=== PATIENT | male | born 1940 | race Caucasian/White ===

== ENCOUNTER → 2016-09-15 | Outpatient (CLI) | payer MEDICARE ==
--- NOTE | 2016-09-17 07:47 | MR ---
EXAMINATION TYPE: MR angio head wo con DATE OF EXAM: 09/15/2016 3:30 PM COMPARISON: NONE HISTORY: Headache Three-dimensional [id number] intracranial MRA was performed with multiple intensity projection im ages submitted and source data reviewed at the workstation. The vertebrobasilar system as well as intracranial portions of the internal carotid arteries and thei r major tributaries are patent. I do not see evidence for sizable aneurysm or vascular malformation. IMPRESSION: Normal study.
--- NOTE | 2016-09-17 07:51 | MR ---
EXAMINATION TYPE: MR brain wo/w con DATE OF EXAM: 09/15/2016 3:40 PM COMPARISON: NONE HISTORY: R93.0; MULTIPLE STROKES CONTRAST: 13ml multihance Multiplanar and multispin-echo imaging of the brain was performed . Pre and post contrast enhanced i mages are obtained. The ventricles, basal cisterns and sulci overlying the cerebral convexities are moderately enlarged. Remote insults noted within the left parietal occipital region as well as the left frontal region an d high right frontal region. There is evidence of moderate periventricular white matter ischemic demyelination. Remote deep white matter insults are also noted. No acute edema is seen on diffusion weighted imaging. There is no evidence for midline shift or mass effect. Acute intracranial hemorrhage or extra-axial collection is not evident. No enhancing lesions are seen. The paranasal sinuses and mastoid air cells are well-aerated. IMPRESSION: Age-related atrophic and chronic small vessel ischemic change. No acute intracranial process at this time. Remote insults as noted. No enhancing lesions are seen.
== END | disposition home or self-care (01) ==
LOC: RADMRIMAIN 13:26
PROVIDERS: ATTEND Psychiatry & Neurology Neurology
DX: I67.82 Cerebral ischemia (principal); G31.9 Degenerative disease of nervous system, unspecified
CPT/HCPCS: 70544; 70553; A9577

== ENCOUNTER → 2020-03-08 | Outpatient (CLI) | payer MEDICARE ==
[2020-03-08 21:13] LABS: Albumin 3.5 g/dL (3.80-4.90); Albumin/Globulin Ratio 1.46 (1.60-3.17); Anion Gap 5.4 mmol/L (4.00-12.00); Calcium 8.8 mg/dL (8.7-10.3); Carbon Dioxide 21.6 mmol/L (21.6-31.8); Chol/HDL Ratio 3.6; Globulin 2.4 g/dL (1.6-3.3); LDL Cholesterol,Calculated 61.4 mg/dL (0.0-131.0); Non-African American GFR(CKD) 70.8 (60.0-200.0); Potassium 4.4 mmol/L (3.5-5.5); Total Bilirubin 0.5 mg/dL (0.2-1.2); Total Protein 5.9 g/dL (6.2-8.2); VLDL Calculation 16.6 mg/dL (5.00-40.00)
== END | disposition home or self-care (01) ==
LOC: LABWHC1 10:52
PROVIDERS: ATTEND Internal Medicine Clinical Cardiac Electrophysiology
DX: I25.10 Atherosclerotic heart disease of native coronary artery without angina pectoris (principal); I49.5 Sick sinus syndrome; E78.5 Hyperlipidemia, unspecified; Z79.01 Long term (current) use of anticoagulants
CPT/HCPCS: 36415; 80053; 80061; 84443

== ENCOUNTER → 2020-04-13 | Outpatient (CLI) | payer MEDICARE ==
[2020-04-13 16:44] LABS: African American GFR (CKD) >90 (>60 ml/min/1.73 sqM); Blood Urea Nitrogen 18 mg/dL (9-20); Non-African American GFR(CKD) 80 (>60 ml/min/1.73 sqM)
--- NOTE | 2020-04-13 17:32 | CT ---
EXAMINATION TYPE: CT angio neck DATE OF EXAM: 04/13/2020 COMPARISON: HISTORY: Cerebral atherosclerosis CT DLP: 235.30 mGycm Automated exposure control for dose reduction was used. CONTRAST: Performed with IV Contrast, patient injected with 65 mL of Isovue 370. There are 3-D post processed images. Thoracic aorta is intact. There is mild atheromatous change in the aortic arch. There is no aneurysm. The ascending aorta measures 3.4 cm. There is normal branching pattern of the great vessels on the a ortic arch. There is bilateral arterial flow in the subclavian arteries. There is arterial flow in th e common internal and external carotid arteries bilaterally. 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 There is 75% stenosis at t he origin of the right external carotid artery. There is minimal plaque at the left carotid artery bi furcation with lumen narrowing less than 25%. There is arterial flow in the vertebrobasilar artery sy stem. The basilar artery fills mostly from the right side. There is no evidence of carotid or vertebr al artery aneurysm or dissection. 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 There is 75% stenosis origin of the right external carotid artery. No evidence of any significant stenosis in the left carotid artery. Vertebral arteries within normal limits.
== END | disposition home or self-care (01) ==
LOC: RADCTMAIN 15:08
PROVIDERS: ATTEND Physician Assistant
DX: I65.21 Occlusion and stenosis of right carotid artery (principal); I65.23 Occlusion and stenosis of bilateral carotid arteries
CPT/HCPCS: 82565; 84520; 70498; 36415; Q9967

== ENCOUNTER → 2020-08-25 | Outpatient (CLI) | payer MEDICARE ==
--- NOTE | 2020-08-25 22:25 | US ---
EXAMINATION TYPE: US kidneys/renal and bladder DATE OF EXAM: 08/25/2020 COMPARISON: CT June 26, 2016 CLINICAL HISTORY: R31.29 Microscopic hematuria. microscopic hematuria with some gross hematuria EXAM MEASUREMENTS: Right Kidney: 9.3 x 4.2 x 5.1 cm Left Kidney: 9.3 x 3.6 x 3.9 cm Right Kidney: No hydronephrosis or masses seen Left Kidney: No hydronephrosis or masses seen Bladder: patient was not told to prep There is no evidence for hydronephrosis at this point in time. No nephrolithiasis is seen. No verna s are identified on images saved. The urinary bladder is collapsed and thus cannot be evaluated. IMPRESSION: Suboptimal evaluation of the bladder. Source of hematuria not identified. Further investi gation with CT urogram is likely warranted.
== END | disposition home or self-care (01) ==
LOC: RADUSWWP 14:40
PROVIDERS: ATTEND Family Medicine
DX: R31.29 Other microscopic hematuria (principal)
CPT/HCPCS: 76770

== ENCOUNTER → 2021-01-10 | Outpatient (CLI) | payer MEDICARE ==
--- NOTE | 2021-01-10 11:15 | CT ---
EXAMINATION TYPE: CT ChestAbdPelvis wo con DATE OF EXAM: 01/10/2021 COMPARISON: 06/26/2016 HISTORY: Weight loss and shortness of breath CT DLP: 492.7 mGycm. Automated Exposure Control for Dose Reduction was Utilized. TECHNIQUE: CT scan of the thorax, abdomen and pelvis is performed without IV contrast. FINDINGS: LUNGS: Linear right apical density extending the pleural silhouette appears to 2016 and therefore lik nely postinflammatory. There is a 4 mm subpleural new pulmonary nodule. Underlying COPD suspected. Add itional subcentimeter subpleural nodularity noted. There are 2 3 mm nodules in the left upper lobe on axial image 23. No consolidative pneumonia. Pleural effusion. There is a 3 mm nodule in the right mi ddle lobe on axial image 36 and a larger 7 mm nodule on axial image 37. MEDIASTINUM: There are no greater than 1 cm hilar or mediastinal lymph nodes. Heart is enlarged. Asse ssment for adenopathy limited by the lack of contrast. There is atherosclerotic change of the aorta a nd the coronary arteries. Correlate clinically. OTHER: No additional significant abnormality is seen. LIVER/GB: Significant artifact from numerous surgical clips likely within the gallbladder fossa repre senting postcholecystectomy changes. Biliary ductal dilation likely post cholecystectomy.. PANCREAS: No significant abnormality is seen. SPLEEN: No significant abnormality is seen. ADRENALS: No significant abnormality is seen. KIDNEYS: No significant abnormality is seen. BOWEL: Bowel gas pattern nonspecific with a nonobstructing right inguinal hernia. Retained fecal debr is throughout the colon correlate for constipation.. LYMPH NODES: No greater than 1cm abdominal or pelvic lymph nodes are appreciated. OSSEOUS STRUCTURES: Degenerative change the spine most noted at L5-S1 with bilateral spondylolysis an d grade 1 anterolisthesis. Arthropathy of the hips. Stable lucent lesion involving the right acetabul ar roof laterally. OTHER: Atherosclerotic changes aorta with infrarenal abdominal aortic aneurysm measuring approximatel y 3.1 cm extending to the bifurcation. Mild ectasia of the proximal iliac vasculature greater on the right. There is increased density within the bladder which is limited due to lack of contrast. Recomm end ultrasound bladder. No free fluid or free air. Prostate calcifications are noted. Postsurgical ch susanna involving the anterior abdominal wall. IMPRESSION: 1. Numerous subcentimeter pulmonary nodules too small to characterize. Some appears stable from prior exam of 2015 and therefore benign. However, there is are additional new nodules most noted in the ri ght middle lobe measuring 7 mm and are therefore indeterminate. Correlate clinically. 2. Mild induration of the fat within the lateral right abdomen may be related to motion rather than m ild enteritis or colitis correlate clinically. 3. Areas of increased density are seen within the bladder recommend follow-up bladder ultrasound as w ell as urinalysis to assess for possible calcification or mass. 4. COPD 5. infrarenal abdominal aortic aneurysm measuring approximately 3.1 cm. 6. Coronary artery calcification. 7. Nonobstructing left inguinal hernia
== END | disposition home or self-care (01) ==
LOC: RADCTMAIN 09:55
PROVIDERS: ATTEND Family Medicine
DX: R91.8 Other nonspecific abnormal finding of lung field (principal); J44.9 Chronic obstructive pulmonary disease, unspecified; I25.10 Atherosclerotic heart disease of native coronary artery without angina pectoris; I71.4 Abdominal aortic aneurysm, without rupture; K40.90 Unilateral inguinal hernia, without obstruction or gangrene, not specified as recurrent
CPT/HCPCS: 71250; 74176

== ENCOUNTER → 2021-05-10 | Outpatient (CLI) | payer MEDICARE ==
--- NOTE | 2021-05-10 15:20 | US ---
EXAMINATION TYPE: US kidneys/renal and bladder DATE OF EXAM: 05/10/2021 COMPARISON: US, CT CLINICAL HISTORY: R31.0 GROSS HEMATURIA. Gross hematuria. EXAM MEASUREMENTS: Right Kidney: 9.6 x 5.4 x 4.8 cm Left Kidney: 9.8 x 5.0 x 4.0 cm Right Kidney: No hydronephrosis or masses seen Left Kidney: Renal pelvis appears dilated. Bladder: Limited, patient did not prep. Bladder not distended. There do appear to be internal echoes within the bladder: 0.7 x 2.4 x 1.7 cm. Bilateral Jets seen: No IMPRESSION: Mild hydronephrosis left kidney is difficult to exclude.
== END | disposition home or self-care (01) ==
LOC: RADUSWWP 14:18
PROVIDERS: ATTEND Family Medicine
DX: N13.30 Unspecified hydronephrosis (principal)
CPT/HCPCS: 76770

== ENCOUNTER 2021-07-08 07:44 | Emergency (ER) | payer MEDICARE ==
[2021-07-08 07:59] VITALS: RESP 18
[2021-07-08] MEDS ORDERED: SODIUM CHLORIDE 0.9% 1,000 ML IV STA (08:11)
[2021-07-08] MEDS ORDERED: PANTOPRAZOLE 40 MG/10 ML VIAL IVP STA (08:11)
--- NOTE | 2021-07-08 08:18 | ED ---
General Adult HPI - General Chief complaint: ENT Stated complaint: not eating/not able to swallow Time Seen by Provider: 07/08/21 07:51 Source: patient, RN notes reviewed Mode of arrival: ambulatory Limitations: no limitations - History of Present Illness Initial comments: Patient is a pleasant 81-year-old male presenting to the emergency Department with not tolerating oral intake. Onset of symptoms seemed fairly sudden around 3 days ago. Patient did not have any episode of concern for food bolus stuck. Patient states no history of similar symptoms previously. Patient states he was tolerating full liquids then only water and now even has difficulty with that. Patient states when he tries to swallow he spits it back up. No confusion or weakness. No speech problems. - Related Data Home Medications Medication Instructions Recorded Confirmed acetaZOLAMIDE [Diamox Sequels] 500 mg PO BID 09/24/14 07/08/21 Hydroxyurea [Hydrea] 500 mg PO BID 01/12/16 07/08/21 Vitamin E (Dl,Tocopheryl Acet) 400 unit PO DAILY 01/12/16 07/08/21 [Vitamin E (400 Iu = 180 mg)] Brimonidine Tartrate/Timolol 1 drop BOTH EYES BID 06/25/16 07/08/21 [Combigan 0.2%-0.5% Eye Drops] Latanoprost [Xalatan 0.005%] 1 drop BOTH EYES HS 06/25/16 07/08/21 Artificial Tears-Hypromellose 1 drop BOTH EYES TID PRN 07/08/21 07/08/21 [Artificial Tear Drops] Ascorbic Acid [Vitamin C chew] 500 mg PO DAILY 07/08/21 07/08/21 Aspirin EC [Ecotrin Low Dose] 81 mg PO DAILY 07/08/21 07/08/21 Calcium Carbonate [Calcium] 600 mg PO DAILY 07/08/21 07/08/21 Donepezil [Aricept] 10 mg PO HS 07/08/21 07/08/21 Multivitamins, Thera [Multivitamin 1 tab PO DAILY 07/08/21 07/08/21 (formulary)] Rivaroxaban [Xarelto] 2.5 mg PO BID 07/08/21 07/08/21 Rosuvastatin [Crestor] 20 mg PO DAILY 07/08/21 07/08/21 atenoloL [Tenormin] 25 mg PO DAILY 07/08/21 07/08/21 Allergies Allergy/AdvReac Type Severity Reaction Status Date / Time codeine AdvReac Nausea & Verified 07/08/21 10:07 Vomiting Review of Systems ROS Statement: Those systems with pertinent positive or pertinent negative responses have been documented in the HPI. ROS Other: All systems not noted in ROS Statement are negative. Constitutional: Denies: fever Eyes: Denies: eye pain ENT: Reports: as per HPI Respiratory: Denies: cough, dyspnea Cardiovascular: Denies: chest pain Endocrine: Denies: fatigue Gastrointestinal: Denies: abdominal pain Genitourinary: Denies: dysuria Musculoskeletal: Denies: back pain Skin: Denies: rash Neurological: Denies: weakness Past Medical History Past Medical History: Asthma, CVA/TIA, Hyperlipidemia, Hypertension, Myocardial Infarction ([place]) Additional Past Medical History / Comment(s): TIA-2012 R hand residual weakness Last Myocardial Infarction Date:: 2013 History of Any Multi-Drug Resistant Organisms: None Reported Past Surgical History: Cholecystectomy, Hernia Repair, Tonsillectomy Additional Past Surgical History / Comment(s): SUMANTH CATARACTS Past Anesthesia/Blood Transfusion Reactions: No Reported Reaction Past Psychological History: No Psychological Hx Reported Past Alcohol Use History: Rare Past Drug Use History: None Reported - Past Family History Mother Family Medical History: Cancer Father Family Medical History: Cancer General Exam Limitations: no limitations General appearance: alert, in no apparent distress Head exam: Present: normocephalic Eye exam: Present: normal appearance, PERRL, EOMI ENT exam: Present: normal oropharynx Neck exam: Present: normal inspection. Absent: tenderness, meningismus, lymphadenopathy, thyromegaly Respiratory exam: Present: normal lung sounds bilaterally Cardiovascular Exam: Present: regular rate, normal rhythm GI/Abdominal exam: Present: soft. Absent: tenderness Extremities exam: Present: normal inspection Neurological exam: Present: alert, oriented X3, CN II-XII intact. Absent: motor sensory deficit Expanded Neurological exam: Present: protecting the airway Patient oriented to: Present: person, place, time Speech: Present: fluid speech Cranial nerves: EOM's Intact: Normal Motor strength exam: RUE: 5, LUE: 5, RLE: 5, LLE: 5 Eye Response: (4) open spontaneously Motor Response: (6) obeys commands Verbal Response: (5) oriented Psychiatric exam: Present: normal affect, normal mood Skin exam: Present: normal color Course Vital Signs 07/08/21 07/08/21 07:54 09:53 Temperature 98.0 F Pulse Rate 66 54 L Respiratory 18 18 Rate Blood Pressure 125/59 123/54 O2 Sat by Pulse 98 98 Oximetry Medical Decision Making - Medical Decision Making Patient reevaluated and resting comfortably in bed. Patient was able to tolerate 8 ounces of fluids without any difficulty. Patient is in agreement with this and is comfortable with discharge home. Patient is made aware that he will need further evaluation including swallow evaluation such as barium swallow and further evaluation of his hematuria. Patient does demonstrate understanding and is in agreement with follow-up for this. Patient is advised to return if he is having worsening symptoms or not tolerating oral intake. Call was received from family by nursing staff stating patient has had these symptoms for several months now. - Lab Data Result diagrams: 07/08/21 08:25 07/08/21 08:25 Lab Results 07/08/21 07/08/21 07/08/21 Range/Units 08:25 08:25 08:25 WBC 7.8 (3.8-10.6) k/uL RBC 3.01 L (4.30-5.90) m/uL Hgb 13.4 (13.0-17.5) gm/dL Hct 41.2 (39.0-53.0) % MCV 136.7 H (80.0-100.0) fL MCH 44.4 H (25.0-35.0) pg MCHC 32.5 (31.0-37.0) g/dL RDW 16.0 H (11.5-15.5) % Plt Count 206 (150-450) k/uL MPV 10.7 Neutrophils % 76 % Lymphocytes % 14 % Monocytes % 5 % Eosinophils % 2 % Basophils % 1 % Neutrophils # 5.9 (1.3-7.7) k/uL Lymphocytes # 1.1 (1.0-4.8) k/uL Monocytes # 0.4 (0-1.0) k/uL Eosinophils # 0.1 (0-0.7) k/uL Basophils # 0.1 (0-0.2) k/uL Manual Slide Review Performed Hypersegmented Neuts Present Hypochromasia Slight Poikilocytosis Slight Anisocytosis Slight Macrocytosis Marked A PT 12.1 H (9.0-12.0) sec INR 1.2 H (<1.2) APTT 27.0 (22.0-30.0) sec Sodium (137-145) mmol/L Potassium (3.5-5.1) mmol/L Chloride (98-107) mmol/L Carbon Dioxide (22-30) mmol/L Anion Gap mmol/L BUN (9-20) mg/dL Creatinine (0.66-1.25) mg/dL Est GFR (CKD-EPI)AfAm (>60 ml/min/1.73 sqM) Est GFR (CKD-EPI)NonAf (>60 ml/min/1.73 sqM) Glucose (74-99) mg/dL Calcium (8.4-10.2) mg/dL Total Bilirubin (0.2-1.3) mg/dL AST (17-59) U/L ALT (4-49) U/L Alkaline Phosphatase (38-126) U/L Total Protein (6.3-8.2) g/dL Albumin (3.5-5.0) g/dL Amylase (30-110) U/L Lipase (23-300) U/L Urine Color Yellow Urine Appearance Clear (Clear) Urine pH 5.5 (5.0-8.0) Ur Specific [place] 1.022 (1.001-1.035) Urine Protein 1+ H (Negative) Urine Glucose (UA) Negative (Negative) Urine Ketones 2+ H (Negative) Urine Blood Large H (Negative) Urine Nitrite Negative (Negative) Urine Bilirubin Negative (Negative) Urine Urobilinogen <2.0 (<2.0) mg/dL Ur Leukocyte Esterase Negative (Negative) Urine RBC 146 H (0-5) /hpf Urine WBC 17 H (0-5) /hpf Ur Squamous Epith Cells <1 (0-4) /hpf Urine Mucus Few H (None) /hpf 07/08/21 Range/Units 08:25 WBC (3.8-10.6) k/uL RBC (4.30-5.90) m/uL Hgb (13.0-17.5) gm/dL Hct (39.0-53.0) % MCV (80.0-100.0) fL MCH (25.0-35.0) pg MCHC (31.0-37.0) g/dL RDW (11.5-15.5) % Plt Count (150-450) k/uL MPV Neutrophils % % Lymphocytes % % Monocytes % % Eosinophils % % Basophils % % Neutrophils # (1.3-7.7) k/uL Lymphocytes # (1.0-4.8) k/uL Monocytes # (0-1.0) k/uL Eosinophils # (0-0.7) k/uL Basophils # (0-0.2) k/uL Manual Slide Review Hypersegmented Neuts Hypochromasia Poikilocytosis Anisocytosis Macrocytosis PT (9.0-12.0) sec INR (<1.2) APTT (22.0-30.0) sec Sodium 141 (137-145) mmol/L Potassium 3.7 (3.5-5.1) mmol/L Chloride 115 H (98-107) mmol/L Carbon Dioxide 18 L (22-30) mmol/L Anion Gap 8 mmol/L BUN 17 (9-20) mg/dL Creatinine 0.91 (0.66-1.25) mg/dL Est GFR (CKD-EPI)AfAm >90 (>60 ml/min/1.73 sqM) Est GFR (CKD-EPI)NonAf 78 (>60 ml/min/1.73 sqM) Glucose 113 H (74-99) mg/dL Calcium 8.7 (8.4-10.2) mg/dL Total Bilirubin 0.7 (0.2-1.3) mg/dL AST 27 (17-59) U/L ALT 20 (4-49) U/L Alkaline Phosphatase 53 (38-126) U/L Total Protein 6.5 (6.3-8.2) g/dL Albumin 3.5 (3.5-5.0) g/dL Amylase 49 (30-110) U/L Lipase 76 (23-300) U/L Urine Color Urine Appearance (Clear) Urine pH (5.0-8.0) Ur Specific [place] (1.001-1.035) Urine Protein (Negative) Urine Glucose (UA) (Negative) Urine Ketones (Negative) Urine Blood (Negative) Urine Nitrite (Negative) Urine Bilirubin (Negative) Urine Urobilinogen (<2.0) mg/dL Ur Leukocyte Esterase (Negative) Urine RBC (0-5) /hpf Urine WBC (0-5) /hpf Ur Squamous Epith Cells (0-4) /hpf Urine Mucus (None) /hpf - Radiology Data Radiology results: report reviewed (CT brain reveals no acute process), image reviewed (Chest x-ray and KUB shows no process. Soft tissue neck shows some narrowing or stapling subglottic airway.) Disposition Clinical Impression: Dysphagia, Hematuria Disposition: HOME SELF-CARE Condition: Stable Instructions (If sedation given, give patient instructions): Chronic Dysphagia (DC), Dysphagia (ED), Hematuria (ED) Additional Instructions: Please do follow-up primary care physician in the next couple days for recheck. Return for not tolerating oral intake, not tolerating fluids or water, worsening or changing symptoms or any other concern. You will need further evaluation for both blood in the urine as well as swallowing problems. Is patient prescribed a controlled substance at d/c from ED?: No Referrals: Marvin Rivera MD [Primary Care Provider] - 1-2 days Time of Disposition: 12:32
[2021-07-08 08:35] LABS: Anisocytosis Slight; Basophils # (A) 0.1 k/uL (0-0.2); Basophils % (A) 1 %; Eosinophils # (A) 0.1 k/uL (0-0.7); Eosinophils % (A) 2 %; HCT 41.2 % (39.0-53.0); HGB 13.4 gm/dL (13.0-17.5); Hypochromasia Slight; Lymphocytes # (A) 1.1 k/uL (1.0-4.8); Lymphocytes % (A) 14 %; MCHC 32.5 g/dL (31.0-37.0); Macrocytosis Marked; Mean Platelet Volume 10.7; Monocytes # (A) 0.4 k/uL (0-1.0); Monocytes % (A) 5 %; Neutrophils # (A) 5.9 k/uL (1.3-7.7); Neutrophils % (A) 76 %; Platelet Count 206 k/uL (150-450); Poikilocytosis Slight; RBC 3.01 m/uL (4.30-5.90); WBC 7.8 k/uL (3.8-10.6)
[2021-07-08 08:46] LABS: ALT 20 U/L (4-49); AST 27 U/L (17-59); African American GFR (CKD) >90 (>60 ml/min/1.73 sqM); Albumin 3.5 g/dL (3.5-5.0); Alkaline Phosphatase 53 U/L (38-126); Amylase 49 U/L (30-110); Anion Gap 8 mmol/L; Blood Urea Nitrogen 17 mg/dL (9-20); Calcium 8.7 mg/dL (8.4-10.2); Carbon Dioxide 18 mmol/L (22-30); Chloride 115 mmol/L (98-107); Glucose 113 mg/dL (74-99); Lipase 76 U/L (23-300); Non-African American GFR(CKD) 78 (>60 ml/min/1.73 sqM); Potassium 3.7 mmol/L (3.5-5.1); Sodium 141 mmol/L (137-145); Total Bilirubin 0.7 mg/dL (0.2-1.3); Total Protein 6.5 g/dL (6.3-8.2)
[2021-07-08 08:47] LABS: INR 1.2 (<1.2); Prothrombin Time 12.1 sec (9.0-12.0)
[2021-07-08 08:48] LABS: MCH 44.4 pg (25.0-35.0)
[2021-07-08 08:49] LABS: MCV 136.7 fL (80.0-100.0)
[2021-07-08 09:21] LABS: Hypersegmented Neutrophils Present
--- NOTE | 2021-07-08 09:33 | CT ---
EXAMINATION TYPE: CT brain wo con DATE OF EXAM: 07/08/2021 HISTORY: Dysphagia CT DLP: 1056.4 mGycm. Automated Exposure Control for Dose Reduction was Utilized. TECHNIQUE: CT scan of the head is performed without contrast. COMPARISON: CT brain June 25, 2016. FINDINGS: There is no acute intracranial hemorrhage or midline shift identified. Moderate sulcal pr ominence greatest superiorly and over bilateral frontal lobes redemonstrated. Old infarct high left parietal region redemonstrated. Old bilateral frontal lobe infarcts axial image 29 redemonstrated. No hydrocephalus. The globes are intact and the visualized sinuses are clear. IMPRESSION: No acute intracranial hemorrhage or midline shift. Diffuse cerebral atrophy with old inf arcts are all redemonstrated. No significant change from 2016 study.
--- NOTE | 2021-07-08 09:35 | XR ---
EXAMINATION TYPE: XR chest 2V DATE OF EXAM: 07/08/2021 COMPARISON: Chest x-ray June 25, 2016. CT chest January 10, 2021 HISTORY: Chest and abdominal pain. Dysphagia. TECHNIQUE: Frontal and lateral views of the chest are obtained. FINDINGS: There is mild underlying emphysematous change without suspicious focal air space opacity, pleural effusion, or pneumothorax seen. The cardiac silhouette size is stable and within normal limi ts. The osseous structures are intact. IMPRESSION: Mild underlying emphysematous change without acute pulmonary process.
--- NOTE | 2021-07-08 09:37 | XR ---
EXAMINATION TYPE: XR soft tissue neck DATE OF EXAM: 07/08/2021 COMPARISON: Same-day chest x-ray. HISTORY: Dysphasia. TECHNIQUE: 2 views soft tissue neck. FINDINGS: Patent nasopharyngeal and oropharyngeal airways. Region of epiglottis and vallecula appears within normal limits. No suspicious prevertebral soft tissue swelling. Slight grade 1 retrolisthesis C4 on C5 with moderate disc space narrowing and mild spurring C4-C5 and C5-C6 levels. Symmetric narrowing or steepling of the subglottic airway on the frontal view with hypopharyngeal air way prominence could reflect product of underlying subglottic stenosis or croup. Correlate clinically . IMPRESSION: As above.
--- NOTE | 2021-07-08 09:38 | XR ---
EXAMINATION TYPE: XR KUB DATE OF EXAM: 07/08/2021 9:23 AM CLINICAL HISTORY: Pain. TECHNIQUE: Two supine KUB images of the abdomen are obtained. COMPARISON: CT January 10, 2021 FINDINGS: Scattered gas is seen in non-distended small bowel loops. Gas and fecal material is seen in non-distended colon. Mild to moderate diffuse colonic fecal prominence. Surgical sutures overlie the right midabdomen. Osseous structures are demineralized. Cholecystectomy clips noted. Lung bases are clear. IMPRESSION: Overall nonobstructive bowel gas pattern. [id number] diffuse colonic fecal stasis redemonstrate d.
[2021-07-08 10:06] LABS: Appearance,Urine Clear (Clear); Bilirubin,Urine Negative (Negative); Blood,Urine Large (Negative); Color,Urine Yellow; Glucose,Urine (UA) Negative (Negative); Ketones,Urine 2+ (Negative); Leukocyte Esterase,Urine Negative (Negative); Mucus,Urine Few /hpf; Nitrite,Urine Negative (Negative); PH, Urine 5.5 (5.0-8.0); Protein,Urine 1+ (Negative); RBC,Urine 146 /hpf (0-5); Specific Gravity,Urine 1.022 (1.001-1.035); Squamous Epithelial Cell,Urine <1 /hpf (0-4); Urobilinogen,Urine <2.0 mg/dL (<2.0); WBC,Urine 17 /hpf (0-5)
[2021-07-08 12:43] VITALS: BP 132/76; PULSE 74; TEMP 98
== END 2021-07-08 12:43 | disposition home or self-care (01) ==
LOC: EC 07:44
DX: R13.10 Dysphagia, unspecified (principal); R31.9 Hematuria, unspecified; I10 Essential (primary) hypertension; I25.2 Old myocardial infarction; J45.909 Unspecified asthma, uncomplicated; E78.5 Hyperlipidemia, unspecified; Z79.01 Long term (current) use of anticoagulants; Z79.82 Long term (current) use of aspirin; Z79.899 Other long term (current) drug therapy; Z88.5 Allergy status to narcotic agent
CPT/HCPCS: 36415; 80053; 82150; 83690; 85025; 85610; 85730; 81001; 87086; 70360; 71046; 74018; 70450; 99284; 96374; C9113

== ENCOUNTER 2021-12-06 13:30 | Emergency (ER) | payer MEDICARE ==
[2021-12-06] MEDS ORDERED: FAMOTIDINE 20 MG/2 ML VIAL IV STA (14:13)
[2021-12-06] MEDS ORDERED: ONDANSETRON 4 MG/2 ML VIAL IVP STA (14:13)
--- NOTE | 2021-12-06 14:16 | ED ---
General Adult HPI - General Chief complaint: Urogenital Stated complaint: Urogenital Time Seen by Provider: 12/06/21 13:42 Source: patient, EMS, RN notes reviewed Mode of arrival: EMS Limitations: no limitations - History of Present Illness Initial comments: Patient is a pleasant 79-year-old male presenting to the emergency department with concerns of hematuria. Patient did have an episode today. Patient has had mild cough recently. Patient did vomit once. No abdominal discomfort. Patient does have recent diagnosis of her hernia however states it is not bothering him. - Related Data Home Medications Medication Instructions Recorded Confirmed acetaZOLAMIDE [Diamox Sequels] 500 mg PO BID 09/24/14 12/06/21 Hydroxyurea [Hydrea] 500 mg PO BID 01/12/16 12/06/21 Vitamin E (Dl,Tocopheryl Acet) 400 unit PO HS 01/12/16 12/06/21 [Vitamin E (400 Iu = 180 mg)] Brimonidine Tartrate/Timolol 1 drop BOTH EYES BID 06/25/16 12/06/21 [Combigan 0.2%-0.5% Eye Drops] Latanoprost [Xalatan 0.005%] 1 drop BOTH EYES HS 06/25/16 12/06/21 Ascorbic Acid [Vitamin C chew] 500 mg PO DAILY 07/08/21 12/06/21 Aspirin EC [Ecotrin Low Dose] 81 mg PO DAILY 07/08/21 12/06/21 Donepezil [Aricept] 10 mg PO HS 07/08/21 12/06/21 Multivitamins, Thera [Multivitamin 1 tab PO DAILY 07/08/21 12/06/21 (formulary)] Rivaroxaban [Xarelto] 2.5 mg PO BID 07/08/21 12/06/21 Rosuvastatin [Crestor] 20 mg PO DAILY 07/08/21 12/06/21 atenoloL [Tenormin] 25 mg PO HS 07/08/21 12/06/21 Loratadine/Pseudoephedrine 1 tab PO DAILY 12/06/21 12/06/21 [Loratadine-D 12 Hour Tablet] Magnesium 200 mg PO HS 12/06/21 12/06/21 Allergies Allergy/AdvReac Type Severity Reaction Status Date / Time codeine AdvReac Nausea & Verified 12/06/21 14:33 Vomiting Review of Systems ROS Statement: Those systems with pertinent positive or pertinent negative responses have been documented in the HPI. ROS Other: All systems not noted in ROS Statement are negative. Constitutional: Denies: fever Eyes: Denies: eye pain ENT: Denies: ear pain Respiratory: Reports: cough. Denies: dyspnea Cardiovascular: Denies: chest pain Endocrine: Denies: fatigue Gastrointestinal: Reports: nausea. Denies: abdominal pain Genitourinary: Reports: hematuria. Denies: urgency, dysuria, frequency Skin: Denies: rash Neurological: Denies: weakness Past Medical History Past Medical History: Asthma, CVA/TIA, Hyperlipidemia, Hypertension, Myocardial Infarction ([place]) Additional Past Medical History / Comment(s): TIA-2013 R hand residual weakness Last Myocardial Infarction Date:: 2013 History of Any Multi-Drug Resistant Organisms: None Reported Past Surgical History: Cholecystectomy, Hernia Repair, Tonsillectomy Additional Past Surgical History / Comment(s): SUMANTH CATARACTS Past Anesthesia/Blood Transfusion Reactions: No Reported Reaction Past Psychological History: No Psychological Hx Reported Smoking Status: Never smoker Past Alcohol Use History: Rare Past Drug Use History: None Reported - Past Family History Mother Family Medical History: Cancer Father Family Medical History: Cancer General Exam Limitations: no limitations General appearance: alert, in no apparent distress Head exam: Present: normocephalic Eye exam: Present: normal appearance Neck exam: Present: normal inspection Respiratory exam: Present: normal lung sounds bilaterally Cardiovascular Exam: Present: regular rate, normal rhythm GI/Abdominal exam: Present: soft. Absent: tenderness exam: Present: other (Mild right inguinal hernia that is easily reduced without tenderness or complication.) Extremities exam: Present: normal inspection Neurological exam: Present: alert Psychiatric exam: Present: normal affect, normal mood Skin exam: Present: normal color Course Vital Signs 12/06/21 12/06/21 13:40 15:02 Temperature 99.4 F Pulse Rate 61 62 Respiratory 20 18 Rate Blood Pressure 158/64 128/91 O2 Sat by Pulse 98 Oximetry - Reevaluation(s) Reevaluation #1: 12/06/21 16:37 Family called and states patient does have history of bladder tumor and hematuria is not uncommon. EKG Findings - EKG Comments: EKG Findings:: Sinus rhythm with a rate of 61. OK 164. QRS 102. QT 424. QTC 426. Left axis. PVC. No acute ST changes. Normal QRS. Medical Decision Making - Medical Decision Making Patient reevaluated and feeling much better. Patient is aware of his history of bladder tumor and does have a urologist for this and he will follow-up with. Patient updated on results and need for follow-up. - Lab Data Result diagrams: 12/06/21 14:59 12/06/21 14:59 Lab Results 12/06/21 12/06/21 12/06/21 Range/Units 14:59 14:59 14:59 WBC 6.4 (3.8-10.6) k/uL RBC 2.86 L (4.30-5.90) m/uL Hgb 12.8 L (13.0-17.5) gm/dL Hct 40.8 (39.0-53.0) % MCV 142.3 H (80.0-100.0) fL MCH 44.6 H (25.0-35.0) pg MCHC 31.3 (31.0-37.0) g/dL RDW 15.1 (11.5-15.5) % Plt Count 184 (150-450) k/uL MPV 11.0 Neutrophils % 84 % Lymphocytes % 9 % Monocytes % 3 % Eosinophils % 1 % Basophils % 1 % Neutrophils # 5.4 (1.3-7.7) k/uL Lymphocytes # 0.6 L (1.0-4.8) k/uL Monocytes # 0.2 (0-1.0) k/uL Eosinophils # 0.1 (0-0.7) k/uL Basophils # 0.0 (0-0.2) k/uL Hypochromasia Marked Poikilocytosis (manual Present Anisocytosis (manual) Present Macrocytosis Marked A Ovalocytes Present PT 12.0 (9.0-12.0) sec INR 1.1 (<1.2) APTT 26.9 (22.0-30.0) sec Sodium 138 (137-145) mmol/L Potassium 4.1 (3.5-5.1) mmol/L Chloride 111 H (98-107) mmol/L Carbon Dioxide 21 L (22-30) mmol/L Anion Gap 6 mmol/L BUN 13 (9-20) mg/dL Creatinine 0.87 (0.66-1.25) mg/dL Est GFR (CKD-EPI)AfAm >90 (>60 ml/min/1.73 sqM) Est GFR (CKD-EPI)NonAf 81 (>60 ml/min/1.73 sqM) Glucose 107 H (74-99) mg/dL Plasma Lactic Acid Naldo (0.7-2.0) mmol/L Calcium 8.6 (8.4-10.2) mg/dL Magnesium 2.1 (1.6-2.3) mg/dL Total Bilirubin 0.9 (0.2-1.3) mg/dL AST 26 (17-59) U/L ALT 17 (4-49) U/L Alkaline Phosphatase 52 (38-126) U/L Total Protein 6.2 L (6.3-8.2) g/dL Albumin 3.2 L (3.5-5.0) g/dL Coronavirus (PCR) (Not Detectd) Influenza Type A RNA (Not Detectd) Influenza Type B (PCR) (Not Detectd) 12/06/21 12/06/21 12/06/21 Range/Units 14:59 14:59 14:59 WBC (3.8-10.6) k/uL RBC (4.30-5.90) m/uL Hgb (13.0-17.5) gm/dL Hct (39.0-53.0) % MCV (80.0-100.0) fL MCH (25.0-35.0) pg MCHC (31.0-37.0) g/dL RDW (11.5-15.5) % Plt Count (150-450) k/uL MPV Neutrophils % % Lymphocytes % % Monocytes % % Eosinophils % % Basophils % % Neutrophils # (1.3-7.7) k/uL Lymphocytes # (1.0-4.8) k/uL Monocytes # (0-1.0) k/uL Eosinophils # (0-0.7) k/uL Basophils # (0-0.2) k/uL Hypochromasia Poikilocytosis (manual Anisocytosis (manual) Macrocytosis Ovalocytes PT (9.0-12.0) sec INR (<1.2) APTT (22.0-30.0) sec Sodium (137-145) mmol/L Potassium (3.5-5.1) mmol/L Chloride (98-107) mmol/L Carbon Dioxide (22-30) mmol/L Anion Gap mmol/L BUN (9-20) mg/dL Creatinine (0.66-1.25) mg/dL Est GFR (CKD-EPI)AfAm (>60 ml/min/1.73 sqM) Est GFR (CKD-EPI)NonAf (>60 ml/min/1.73 sqM) Glucose (74-99) mg/dL Plasma Lactic Acid Naldo 1.6 (0.7-2.0) mmol/L Calcium (8.4-10.2) mg/dL Magnesium (1.6-2.3) mg/dL Total Bilirubin (0.2-1.3) mg/dL AST (17-59) U/L ALT (4-49) U/L Alkaline Phosphatase (38-126) U/L Total Protein (6.3-8.2) g/dL Albumin (3.5-5.0) g/dL Coronavirus (PCR) Not Detected (Not Detectd) Influenza Type A RNA Not Detected (Not Detectd) Influenza Type B (PCR) Not Detected (Not Detectd) - Radiology Data Radiology results: report reviewed (Computed tomography scan of abdomen and pelvis does show bladder tumor. Fecal stasis, cannot exclude annular lesion. Constipation. Common left iliac artery occlusion.), image reviewed (Chest x-ray shows no acute process) Disposition Clinical Impression: Inguinal hernia, Hematuria, Cough, Vomiting Disposition: HOME SELF-CARE Condition: Stable Instructions (If sedation given, give patient instructions): Hematuria (ED), Acute Nausea and Vomiting (ED) Additional Instructions: Please do follow-up with your primary care physician and your urologist in the next one to 2 days for recheck. Return for difficulty breathing, increased bleeding, worsening or changing symptoms or any other concerns. Is patient prescribed a controlled substance at d/c from ED?: No Referrals: Marvin Rivera MD [Primary Care Provider] - 1-2 days Fito Mao MD [STAFF PHYSICIAN] - 1-2 days Time of Disposition: 16:44
[2021-12-06 15:05] VITALS: RESP 18
[2021-12-06 15:26] LABS: Basophils % (A) 1 %; Eosinophils # (A) 0.1 k/uL (0-0.7); Eosinophils % (A) 1 %; HCT 40.8 % (39.0-53.0); HGB 12.8 gm/dL (13.0-17.5); Hypochromasia Marked; Lymphocytes # (A) 0.6 k/uL (1.0-4.8); Lymphocytes % (A) 9 %; MCHC 31.3 g/dL (31.0-37.0); MCV 142.3 fL (80.0-100.0); Macrocytosis Marked; Monocytes # (A) 0.2 k/uL (0-1.0); Monocytes % (A) 3 %; Neutrophils # (A) 5.4 k/uL (1.3-7.7); Neutrophils % (A) 84 %; Platelet Count 184 k/uL (150-450); RBC 2.86 m/uL (4.30-5.90); RDW 15.1 % (11.5-15.5); WBC 6.4 k/uL (3.8-10.6)
--- NOTE | 2021-12-06 15:27 | XR ---
EXAMINATION TYPE: XR chest 2V DATE OF EXAM: 12/06/2021 COMPARISON: Chest x-ray July 08, 2021 HISTORY: Weakness, vomiting, and cough. TECHNIQUE: Frontal and lateral views of the chest are obtained. FINDINGS: There is chronic parenchymal change bilaterally without suspicious new focal air space opa city, pleural effusion, or pneumothorax seen. The cardiac silhouette size remains within normal limi ts. The osseous structures are demineralized. Surgical clips right upper quadrant are noted. IMPRESSION: No acute process.
[2021-12-06 15:30] LABS: ALT 17 U/L (4-49); AST 26 U/L (17-59); African American GFR (CKD) >90 (>60 ml/min/1.73 sqM); Albumin 3.2 g/dL (3.5-5.0); Alkaline Phosphatase 52 U/L (38-126); Anion Gap 6 mmol/L; Blood Urea Nitrogen 13 mg/dL (9-20); Calcium 8.6 mg/dL (8.4-10.2); Carbon Dioxide 21 mmol/L (22-30); Chloride 111 mmol/L (98-107); Glucose 107 mg/dL (74-99); INR 1.1 (<1.2); Magnesium 2.1 mg/dL (1.6-2.3); Non-African American GFR(CKD) 81 (>60 ml/min/1.73 sqM); Partial Thromboplastin Time 26.9 sec (22.0-30.0); Potassium 4.1 mmol/L (3.5-5.1); Sodium 138 mmol/L (137-145); Total Bilirubin 0.9 mg/dL (0.2-1.3); Total Protein 6.2 g/dL (6.3-8.2)
--- NOTE | 2021-12-06 16:11 | CT ---
EXAMINATION TYPE: CT abdomen pelvis w con DATE OF EXAM: 12/06/2021 COMPARISON: CT 01/10/2021 HISTORY: Hematuria, vomiting. CT DLP: 548.4 mGycm Automated exposure control for dose reduction was used. TECHNIQUE: Helical acquisition of images from the lung bases through the pelvis have been completed. CONTRAST: Performed without Oral Contrast and with IV Contrast, patient injected with 100 mL of Isovue 300. FINDINGS: Small hiatal hernia may be present. Postop changes are noted along anterior abdominal wall. LUNG BASES: No significant abnormality is appreciated. AORTA: Extensive atheromatous changes are present. There is ectasia of the infrarenal abdominal aort a measuring 3.5 cm. Questionable narrowing of the celiac axis and superior mesenteric artery suspecte d. 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 LIVER/GB: Patient is post cholecystectomy. Liver shows some dilated intrahepatic biliary ducts likely due to postcholecystectomy change, common bile duct also dilated. PANCREAS: No significant abnormality is seen. SPLEEN: No significant abnormality is seen. ADRENALS: No significant abnormality is seen. KIDNEYS: No significant abnormality is seen. REPRODUCTIVE ORGANS: Prostate is enlarged and shows associated calcification. BOWEL: Large amount of retained fecal debris is present throughout the distribution of the colon, so me fluid-filled loops of small bowel are also present. Difficult to exclude abnormal soft tissue at t he rectosigmoid colon, axial image #75, coronal image 62, if bowel surveillance has not been performe d then it should be considered FREE AIR: No Free Air visible. ASCITES: None visible. PELVIC ADENOPATHY: None visualized. RETROPERITONEAL ADENOPATHY: No Retroperitoneal Adenopathy visible. URINARY BLADDER: There is abnormal soft tissue at the dome of the urinary bladder, lobular soft tiss ue with some associated calcification, coronal image 39, axial image #72. 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 Grade 1 to grade 2 anterolisthesis, as sociated loss of disc height, degenerative disc change at L5-S1. IMPRESSION: FINDINGS SYSTEM WITH BLADDER TUMOR . CORRELATE FOR FECAL STASIS, DIFFICULT TO EXCLUDE CONCENTRIC SOFT TISSUE AT THE SIGMOID COLON LEVEL, CORRELATE FOR POSSIBLE MUSCULAR HYPERTROPHY, DIFFICULT TO EXCLUDE AN ANNULAR LESION, CORRELATE FOR CONSTIPATION. LEFT COMMON ILIAC ARTERY OCCLUSION. Additional findin gs above.
[2021-12-06 16:25] LABS: MCH 44.6 pg (25.0-35.0)
[2021-12-06 16:33] LABS: Anisocytosis (M) Present; Ovalocytes Present
[2021-12-06 16:34] LABS: Poikilocytosis (M) Present
[2021-12-06] MEDS ORDERED: ACETAMINOPHEN TAB 500 MG TAB PO STA (16:44)
[2021-12-06 16:50] VITALS: BP 143/62; PULSE 65; TEMP 99.8
== END 2021-12-06 17:01 | disposition home or self-care (01) ==
LOC: EC 13:30
DX: R31.9 Hematuria, unspecified (principal); R05.9 Cough, unspecified; R11.10 Vomiting, unspecified; K40.90 Unilateral inguinal hernia, without obstruction or gangrene, not specified as recurrent; J45.909 Unspecified asthma, uncomplicated; E78.5 Hyperlipidemia, unspecified; I10 Essential (primary) hypertension; I25.2 Old myocardial infarction; Z79.82 Long term (current) use of aspirin; Z88.5 Allergy status to narcotic agent; Z86.73 Personal history of transient ischemic attack (TIA), and cerebral infarction without residual deficits; Z90.49 Acquired absence of other specified parts of digestive tract; Z20.822 Contact with and (suspected) exposure to COVID-19
CPT/HCPCS: 99285; 96374; 96375; 80053; 83605; 83735; 85025; 85610; 85730; 87502; 87635; 71046; 74177; J2405; Q9967; 36415

== ENCOUNTER → 2022-05-25 | Outpatient (CLI) | payer MEDICARE ==
[2022-05-25 10:41] LABS: African American GFR (CKD) >90 (>60 ml/min/1.73 sqM); Blood Urea Nitrogen 17 mg/dL (9-20); Non-African American GFR(CKD) 80 (>60 ml/min/1.73 sqM)
--- NOTE | 2022-05-25 12:24 | CT ---
EXAMINATION TYPE: CT abdomen w con DATE OF EXAM: 05/25/2022 COMPARISON: 12/06/2021 HISTORY: 82-year-old male R10.9, K76.0 Abdominal pain, Fatty infiltration of liver, highly echogenic liver on US TECHNIQUE: Contiguous axial scanning of the abdomen and pelvis following administration of 100 ml Omn ipaque 300 IV contrast. Delayed images through the kidneys and coronal/sagittal reconstructions perf ormed. CT DLP: 287.60 mGycm Automated exposure control for dose reduction was used. FINDINGS: Heart upper limits of normal in size without pericardial effusion. There is a small hiatal hernia. Mild emphysematous change in the lower lungs. No pleural effusion. Breathing motion artifact. Additional artifact from metallic clips in the gallbladder fossa. No obvio us focal liver lesion. Portal venous system is patent. No biliary ductal dilatation. Adrenal glands, kidneys, spleen, and pancreas within normal limits. There is prominent atherosclerotic change within the abdominal aorta and iliac arteries. Suspect naye re stenosis origin celiac axis, SMA, and probably the bilateral renal arteries as well. 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 1.8 cm ectatic right common iliac a rtery. 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 No dilated small bowel, free fluid, or free air. Severe stool burden. No evident mesenteric or retroperitoneal adenopathy. Pelvis not imaged. Bones: Bilateral L5 pars defects with grade 1/grade 2 anterolisthesis L5-S1. Anterior midline sutures . IMPRESSION: 1. 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 PROBABLY AT THE ORIGIN OF THE BILATERAL RENAL ARTERIES WELL. 2. 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 ECTATIC RIGHT COMMON ILIAC ARTERY AT 1.8 CM. 3. STABLE OCCLUSION LEFT COMMON ILIAC ARTERY. 4. LARGE STOOL BURDEN. CORRELATE FOR CONSTIPATION. CORRELATE TO THE NEED FOR ANY CLEANSING ENEMA. 5. SMALL HIATAL HERNIA. 6. 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
== END | disposition home or self-care (01) ==
LOC: RADCTMAIN 09:55
PROVIDERS: ATTEND Family Medicine
DX: K76.0 Fatty (change of) liver, not elsewhere classified (principal); K44.9 Diaphragmatic hernia without obstruction or gangrene; M43.16 Spondylolisthesis, lumbar region; M43.17 Spondylolisthesis, lumbosacral region
CPT/HCPCS: 82565; 84520; 74160; 36415; Q9967 ×2

== ENCOUNTER 2022-06-29 09:37 | Emergency (ER) | payer MEDICARE ==
[2022-06-29] MEDS ORDERED: SODIUM CHLORIDE 0.9% 500 ML 500 ML IV STA (09:42)
[2022-06-29] MEDS ORDERED: KETOROLAC 15 MG/ML 1 ML VIAL IVP STA (09:42)
[2022-06-29] MEDS ORDERED: HYDROmorphone 0.5 MG/0.5 ML SYRINGE IVP STA (09:42)
--- NOTE | 2022-06-29 09:47 | ED ---
General Adult HPI - General Stated complaint: abd pain Time Seen by Provider: 06/29/22 09:37 Source: patient, RN notes reviewed, old records reviewed - History of Present Illness Initial comments: This is an 82-year-old male who presents emergency Department complaining of abdominal pain this morning he states it's in the left lower quadrant. He did vomit one time. Patient denies any dysuria hematuria urinary frequency. Pat ient's any back pain. Patient denies any upper abdominal pain. Patient denies chest pain difficult breathing shortness of breath. Patient denies any recent fever chills or cough per patient's any diarrhea. Patient states 25 years ago he did have an upper abdominal hernia repair. Patient denies any headache patient denies numbness weakness. Patient denies any recent injury or trauma - Related Data Home Medications Medication Instructions Recorded Confirmed acetaZOLAMIDE [Diamox Sequels] 500 mg PO BID 09/24/14 12/06/21 Hydroxyurea [Hydrea] 500 mg PO BID 01/12/16 12/06/21 Vitamin E (Dl,Tocopheryl Acet) 400 unit PO HS 01/12/16 12/06/21 [Vitamin E (400 Iu = 180 mg)] Brimonidine Tartrate/Timolol 1 drop BOTH EYES BID 06/25/16 12/06/21 [Combigan 0.2%-0.5% Eye Drops] Latanoprost [Xalatan 0.005%] 1 drop BOTH EYES HS 06/25/16 12/06/21 Ascorbic Acid [Vitamin C chew] 500 mg PO DAILY 07/08/21 12/06/21 Aspirin EC [Ecotrin Low Dose] 81 mg PO DAILY 07/08/21 12/06/21 Donepezil [Aricept] 10 mg PO HS 07/08/21 12/06/21 Multivitamins, Thera [Multivitamin 1 tab PO DAILY 07/08/21 12/06/21 (formulary)] Rivaroxaban [Xarelto] 2.5 mg PO BID 07/08/21 12/06/21 Rosuvastatin [Crestor] 20 mg PO DAILY 07/08/21 12/06/21 atenoloL [Tenormin] 25 mg PO HS 07/08/21 12/06/21 Loratadine/Pseudoephedrine 1 tab PO DAILY 12/06/21 12/06/21 [Loratadine-D 12 Hour Tablet] Magnesium 200 mg PO HS 12/06/21 12/06/21 Allergies Allergy/AdvReac Type Severity Reaction Status Date / Time codeine AdvReac Nausea & Verified 12/06/21 14:33 Vomiting Review of Systems ROS Statement: Those systems with pertinent positive or pertinent negative responses have been documented in the HPI. ROS Other: All systems not noted in ROS Statement are negative. Past Medical History Past Medical History: Asthma, CVA/TIA, Hyperlipidemia, Hypertension, Myocardial Infarction ([place]) Additional Past Medical History / Comment(s): TIA-2012 R hand residual weakness Last Myocardial Infarction Date:: 2013 History of Any Multi-Drug Resistant Organisms: None Reported Past Surgical History: Cholecystectomy, Hernia Repair, Tonsillectomy Additional Past Surgical History / Comment(s): SUMANTH CATARACTS Past Anesthesia/Blood Transfusion Reactions: No Reported Reaction Past Psychological History: No Psychological Hx Reported Smoking Status: Never smoker Past Alcohol Use History: Rare Past Drug Use History: None Reported - Past Family History Mother Family Medical History: Cancer Father Family Medical History: Cancer General Exam - General Exam Comments Initial Comments: GENERAL: Patient is well-developed and well-nourished. Patient is nontoxic and well- hydrated and is in no acute distress. ENT: Neck is soft and supple. No significant lymphadenopathy is noted. Oropharynx is clear. Moist mucous membranes. Neck has full range of motion without eliciting any pain. EYES: The sclera were anicteric and conjunctiva were pink and moist. Extraocular movements were intact and pupils were equal round and reactive to light. Eyelids were unremarkable. PULMONARY: Unlabored respirations. Good breath sounds bilaterally. No audible rales rhonchi or wheezing was noted. CARDIOVASCULAR: There is a regular rate and rhythm without any murmurs gallops or rubs. ABDOMEN: Soft and nontender with normal bowel sounds. Patient appears to have an incarcerated inguinal hernia on the left side SKIN: Skin is clear with no lesions or rashes and otherwise unremarkable. NEUROLOGIC: Patient is alert and oriented x3. Cranial nerves II through XII are grossly intact. Motor and sensory are also intact. Normal speech, volume and content. Symmetrical smile. MUSCULOSKELETAL: Normal extremities with adequate strength and full range of motion. LYMPHATICS: No significant lymphadenopathy is noted PSYCHIATRIC: Normal psychiatric evaluation. Course Vital Signs 06/29/22 09:43 Temperature 98.3 F Pulse Rate 52 L Respiratory 18 Rate Blood Pressure 131/64 O2 Sat by Pulse 98 Oximetry Medical Decision Making - Medical Decision Making Patient had a left inguinal hernia that was incarcerated. I put the patient Trendelenburg and after about 10 minutes of manipulation I was able to reduce the hernia and the patient felt considerably better. I spoke with Dr. Ceja wants to see the patient has an outpatient. I read CAT scan of the abdomen and pelvis I saw no acute abnormality except for a little bit of dilated small bowel loops. - Lab Data Result diagrams: 06/29/22 09:55 06/29/22 09:55 Lab Results 06/29/22 06/29/22 06/29/22 Range/Units 09:55 09:55 09:55 WBC 10.3 (3.8-10.6) k/uL RBC 2.77 L (4.30-5.90) m/uL Hgb 12.5 L (13.0-17.5) gm/dL Hct 40.0 (39.0-53.0) % MCV 144.5 H (80.0-100.0) fL MCH 45.1 H (25.0-35.0) pg MCHC 31.2 (31.0-37.0) g/dL RDW 15.0 (11.5-15.5) % Plt Count 260 (150-450) k/uL MPV 11.6 Hypochromasia Marked Macrocytosis Marked A Sodium 137 (137-145) mmol/L Potassium 4.3 (3.5-5.1) mmol/L Chloride 111 H (98-107) mmol/L Carbon Dioxide 19 L (22-30) mmol/L Anion Gap 7 mmol/L BUN 16 (9-20) mg/dL Creatinine 0.81 (0.66-1.25) mg/dL Est GFR (CKD-EPI)AfAm >90 (>60 ml/min/1.73 sqM) Est GFR (CKD-EPI)NonAf 82 (>60 ml/min/1.73 sqM) Glucose 98 (74-99) mg/dL Plasma Lactic Acid Naldo 1.3 (0.7-2.0) mmol/L Calcium 8.1 L (8.4-10.2) mg/dL Total Bilirubin 0.6 (0.2-1.3) mg/dL AST 25 (17-59) U/L ALT 17 (4-49) U/L Alkaline Phosphatase 49 (38-126) U/L Total Protein 5.8 L (6.3-8.2) g/dL Albumin 3.1 L (3.5-5.0) g/dL Amylase 51 (30-110) U/L Lipase 62 (23-300) U/L Critical Care Time Critical Care Time: Yes Total Critical Care Time: 35 Disposition Clinical Impression: Incarcerated inguinal hernia Disposition: HOME SELF-CARE Condition: Good Instructions (If sedation given, give patient instructions): Inguinal Hernia (ED) Additional Instructions: Patient should follow-up with Dr. Ceja to get a left inguinal hernia repair Is patient prescribed a controlled substance at d/c from ED?: No Referrals: Juliocesar Joyner MD [Primary Care Provider] - 1-2 days Time of Disposition: 10:51
[2022-06-29 10:15] LABS: ALT 17 U/L (4-49); AST 25 U/L (17-59); African American GFR (CKD) >90 (>60 ml/min/1.73 sqM); Albumin 3.1 g/dL (3.5-5.0); Alkaline Phosphatase 49 U/L (38-126); Amylase 51 U/L (30-110); Anion Gap 7 mmol/L; Blood Urea Nitrogen 16 mg/dL (9-20); Calcium 8.1 mg/dL (8.4-10.2); Carbon Dioxide 19 mmol/L (22-30); Chloride 111 mmol/L (98-107); Glucose 98 mg/dL (74-99); Lipase 62 U/L (23-300); Non-African American GFR(CKD) 82 (>60 ml/min/1.73 sqM); Potassium 4.3 mmol/L (3.5-5.1); Sodium 137 mmol/L (137-145); Total Bilirubin 0.6 mg/dL (0.2-1.3); Total Protein 5.8 g/dL (6.3-8.2)
[2022-06-29 10:19] LABS: HGB 12.5 gm/dL (13.0-17.5); Hypochromasia Marked; MCHC 31.2 g/dL (31.0-37.0); MCV 144.5 fL (80.0-100.0); Macrocytosis Marked; Mean Platelet Volume 11.6; Platelet Count 260 k/uL (150-450); RBC 2.77 m/uL (4.30-5.90); WBC 10.3 k/uL (3.8-10.6)
[2022-06-29 10:20] LABS: MCH 45.1 pg (25.0-35.0)
--- NOTE | 2022-06-29 10:46 | CT ---
EXAMINATION TYPE: CT abdomen pelvis wo con DATE OF EXAM: 06/29/2022 COMPARISON: 05/25/2022 HISTORY: Left lower quadrant pain with hernia pushed back by Dr. YOUNGER DLP: 330.1 mGycm Examination of the solid and hollow viscera is limited given the lack of contrast. FINDINGS: LUNG BASES: No evidence for nodule. No evidence for infiltrate. LIVER/GB: Cholecystectomy clips are in place. No space-occupying hepatic lesion. PANCREAS: No pancreatic mass identified. No inflammatory process seen. SPLEEN: No evidence for splenomegaly. No intrasplenic lesions seen. ADRENALS: No adrenal nodules identified. No evidence for thickening. KIDNEYS: No evidence for renal mass. There are couple of the sub-3 mm right-sided renal calculi. No l eft-sided renal calculi seen. No hydronephrosis. Several layering calculi are seen within the urinary bladder lumen. BOWEL: Large stool burden throughout the colon. There is also fluid contents within the right hemicol on. There is dilated small bowel predominantly within the pelvis measuring up to 3.5 cm. Distal small bowel obstruction is difficult to exclude. No free air or abscess. Lymph nodes: No evidence for adenopathy greater than 1 cm. Abdominal aorta: Atheromatous changes seen. Mild fusiform aneurysm infrarenal abdominal aorta. Genital organs: No significant abnormality. Other: Severe degenerative change L5-S1 with bilateral pars defects and anterolisthesis unchanged fro m prior study. IMPRESSION: 1. Dilated small bowel are distended with fluid contents measuring up to 3.5 cm. Distal small bowel o bstruction is not excluded. 2. Large stool burden throughout the colon admixed with fluid contents.
[2022-06-29 11:02] LABS: Lymphocytes # (M) 0.82 k/uL (1.0-4.8); Monocytes # (M) 1.13 k/uL (0-1.0); Neutrophils # (M) 8.34 k/uL (1.3-7.7); Neutrophils % (M) 81 %; Nucleated Red Blood Cells 0 /100 WBC (0-0); Total Cells Counted 100
[2022-06-29 12:20] VITALS: BP 124/69; PULSE 73; RESP 20; TEMP 97.8
== END 2022-06-29 11:20 | disposition home or self-care (01) ==
LOC: EC 09:37
DX: K40.90 Unilateral inguinal hernia, without obstruction or gangrene, not specified as recurrent (principal); J45.909 Unspecified asthma, uncomplicated; E78.5 Hyperlipidemia, unspecified; I10 Essential (primary) hypertension; I25.2 Old myocardial infarction; Z88.5 Allergy status to narcotic agent; Z79.82 Long term (current) use of aspirin
CPT/HCPCS: 36415; 80053; 82150; 83605; 83690; 85025; 74176; 99291; 96374; 96375; 96361; J1885; J1170

== ENCOUNTER 2023-10-17 11:23 | Inpatient (IN) | payer MEDICARE ==
--- NOTE | 2023-10-17 11:57 | ED ---
SOB HPI - General Chief Complaint: Shortness of Breath Stated Complaint: SOB Time Seen by Provider: 10/17/23 11:55 Source: patient, EMS, RN notes reviewed, old records reviewed Mode of arrival: EMS Limitations: no limitations - History of Present Illness Initial Comments: Patient is an 83-year-old male presented to the ER via EMS with a chief complaint of shortness of breath. Patient states for the past day he has been having an increase in exertional dyspnea. He denies any orthopnea. He has reported that his bilateral lower extremities have been edematous "for a while". Denies any scrotal swelling. He was sent here from [facility] for ev aluation due to shortness of breath. Patient does not normally wear oxygen at home. He denies any chest pain, cough, congestion, fevers, abdominal pain, urinary complaints. - Related Data Home Medications Medication Instructions Recorded Confirmed Latanoprost [Xalatan 0.005%] 1 drop BOTH EYES BID 06/25/16 10/17/23 Aspirin EC [Ecotrin Low Dose] 162 mg PO DAILY 07/08/21 10/17/23 Donepezil [Aricept] 10 mg PO DAILY 07/08/21 10/17/23 Rivaroxaban [Xarelto] 2.5 mg PO BID 07/08/21 10/17/23 Ferrous Sulfate [Iron] 325 mg PO DAILY 06/29/22 10/17/23 Rosuvastatin Calcium 5 mg PO HS 06/29/22 10/17/23 Brimonidine Tartrate [Alphagan P 1 drop BOTH EYES BID 10/17/23 10/17/23 0.2% Oph Soln] Furosemide [Lasix] 20 mg PO DAILY 10/17/23 10/17/23 Loratadine-Pseudoeph 5-120 mg 1 tab PO DAILY 10/17/23 10/17/23 [Claritin-D 12 Hour] Potassium Chloride ER [K-Dur 20] 20 meq PO DAILY 10/17/23 10/17/23 atenoloL [Tenormin] 25 mg PO DAILY 10/17/23 10/17/23 Previous Rx's Medication Instructions Recorded lisinopriL [Zestril] 5 mg PO DAILY #30 tab 10/04/22 Allergies Allergy/AdvReac Type Severity Reaction Status Date / Time codeine AdvReac Nausea & Verified 10/17/23 13:08 Vomiting Review of Systems ROS Statement: Those systems with pertinent positive or pertinent negative responses have been documented in the HPI. ROS Other: All systems not noted in ROS Statement are negative. Past Medical History Past Medical History: Asthma, CVA/TIA, Hyperlipidemia, Hypertension, Myocardial Infarction (NH) Additional Past Medical History / Comment(s): TIA-2013 R hand residual weakness Last Myocardial Infarction Date:: 2013 History of Any Multi-Drug Resistant Organisms: None Reported Past Surgical History: Cholecystectomy, Hernia Repair, Tonsillectomy Additional Past Surgical History / Comment(s): SUMANTH CATARACTS Past Anesthesia/Blood Transfusion Reactions: No Reported Reaction Past Psychological History: No Psychological Hx Reported Smoking Status: Never smoker Past Alcohol Use History: Rare Past Drug Use History: None Reported - Past Family History Mother Family Medical History: Cancer Father Family Medical History: Cancer General Exam Limitations: no limitations General appearance: alert, in no apparent distress Head exam: Present: atraumatic, normocephalic, normal inspection Eye exam: Present: normal appearance, PERRL, EOMI. Absent: scleral icterus, conjunctival injection, periorbital swelling Respiratory exam: Present: decreased breath sounds, other (Coarse breath sounds left lower.) Cardiovascular Exam: Present: regular rate, normal rhythm, normal heart sounds. Absent: systolic murmur, diastolic murmur, rubs, gallop, clicks Extremities exam: Present: other (1-2+ bilateral pretibial pitting edema.) Neurological exam: Present: alert, oriented X3, CN II-XII intact Psychiatric exam: Present: normal affect, normal mood Skin exam: Present: warm, dry, intact, normal color. Absent: rash Course Vital Signs 10/17/23 10/17/23 10/17/23 11:27 12:55 13:00 Temperature 98.6 F Pulse Rate 67 Respiratory 12 14 Rate Blood Pressure 162/85 160/76 160/76 O2 Sat by Pulse 97 Oximetry 10/17/23 10/17/23 10/17/23 14:00 15:00 16:00 Temperature Pulse Rate 68 Respiratory 12 16 16 Rate Blood Pressure 163/72 151/68 165/72 O2 Sat by Pulse 98 96 95 Oximetry 10/17/23 10/17/23 17:00 18:00 Temperature Pulse Rate 71 Respiratory 12 Rate Blood Pressure 148/67 163/70 O2 Sat by Pulse 97 Oximetry - Reevaluation(s) Reevaluation #1: 10/17/23 15:[address] Mabry who accepts medical admission. Medical Decision Making - Medical Decision Making Was pt. sent in by a medical professional or institution ([facility], EDUCATION COUNSELOR, urgent care, hospital, or detention...) When possible be specific @ -[facility] [place] for evaluation of dyspnea. Did you speak to anyone other than the patient for history (EMS, parent, family, police, friend...)? What history was obtained from this source @ -Family providing some past medical history Did you review nursing and triage notes (agree or disagree)? Why? @ -I reviewed and agree with nursing and triage notes Were old charts reviewed (outside hosp., previous admission, EMS record, old EKG, old radiological studies, urgent care reports/EKG's, detention records)? Report findings @ -No old charts were reviewed Differential Diagnosis (chest pain, altered mental status, abdominal pain women, abdominal pain men, vaginal bleeding, weakness, fever, dyspnea, syncope, headache, dizziness, GI bleed, back pain, seizure, CVA, palpatations, mental health, musculoskeletal)? @ -Differential Dyspnea:Coronary syndrome, arrhythmia, tamponade, asthma, COPD, pulmonary embolism, pneumonia, pneumothorax, pulmonary effusion, anaphylaxis, diabetic ketoacidosis, flailed chest, pulmonary contusion, diaphragmatic rupture, anemia, neuromuscular, this is not meant to be an all-inclusive list. EKG interpreted by me (3pts min.). @ -As above X-rays interpreted by me (1pt min.). @ -X-ray interpreted by me shows pulmonary vascular congestion and bilateral small pleural effusions with adjacent atelectasis and/or consolidations. CT interpreted by me (1pt min.). @ -None done U/S interpreted by me (1pt. min.). @ -None done What testing was considered but not performed or refused? (CT, X-rays, U/S, labs)? Why? @ -None What meds were considered but not given or refused? Why? @ -None Did you discuss the management of the patient with other professionals (professionals i.e. , [facility], EDUCATION COUNSELOR, lab, RT, psych nurse, medical social consultant, training development director, teacher, reserve officer, disease case manager)? Give summary @ -Yes, case discussed with Was smoking cessation discussed for >3mins.? @ -No Was critical care preformed (if so, how long)? @ -No Were there social determinants of health that impacted care today? How? (Homelessness, low income, unemployed, alcoholism, drug addiction, transportation, low edu. Level, literacy, decrease access to med. care, detention, rehab)? @ -Patient lives in [facility] Was there de-escalation of care discussed even if they declined (Discuss DNR or withdrawal of care, Hospice)? DNR status @ -No What co-morbidities impacted this encounter? (DM, HTN, Smoking, COPD, CAD, Cancer, CVA, ARF, Chemo, Hep., AIDS, mental health diagnosis, sleep apnea, morbid obesity)? @ -HTN Was patient admitted / discharged? Hospital course, mention meds given and route, prescriptions, significant lab abnormalities, going to OR and other pertinent info. @ -Admitted. Patient is a 83 year old male presenting to the ER with a chief complaint of shortness of breath. History and physical exam completed. Vitals stable. Oxygen saturation 97% on 3 L NC. Denies home O2 use or orthopnea. Patient did have coarse lung sounds on lower lungs farias with decreased breath sounds overall. 1-2+ pretibial pitting edema bilaterally. Labs significant for WBC 19, BNP 26,900, PT 13.9, INR 1.3 patient is on Xarelto. Influenza, RSV, COVID-negative. EKG with no acute evidence of infarct or ischemia. Chest x-ray interpreted by me shows pulmonary vascular congestion with small bilateral pleu ral effusions with adjacent atelectasis and/or consolidations. Results discussed with patient, all questions answered. Admission considered due to CHF exacerbation. Case discussed with Dr. Mabry who accepts medical management. Cardiology on consult. Procalcitonin pending to rule out pneumonia. Patient agreeable for admission. Undiagnosed new problem with uncertain prognosis? @ -No Drug Therapy requiring intensive monitoring for toxicity (Heparin, Nitro, Insulin, Cardizem)? @ -No Were any procedures done? @ -No Diagnosis/symptom? @ -CHF Acute, or Chronic, or Acute on Chronic? @ -Acute Uncomplicated (without systemic symptoms) or Complicated (systemic symptoms)? @ -Complicated Side effects of treatment? @ -No Exacerbation, Progression, or Severe Exacerbation? @ -Exacerbation Poses a threat to life or bodily function? How? (Chest pain, USA, NH, pneumonia, PE, COPD, DKA, ARF, appy, cholecystitis, CVA, Diverticulitis, Homicidal, Suicidal, threat to staff... and all critical care pts) @ -Yes, CHF can lead to hypoxia which is life-threatening. - Lab Data Result diagrams: 10/17/23 12:10/17/23 12: Lab Results 10/17/23 10/17/23 10/17/23 Range/Units 12: 12: 12: WBC 19.4 H (3.8-10.6) k/uL RBC 5.23 (4.30-5.90) m/uL Hgb 16.0 (13.0-17.5) gm/dL Hct 50.8 (39.0-53.0) % MCV 97.2 (80.0-100.0) fL MCH 30.6 (25.0-35.0) pg MCHC 31.5 (31.0-37.0) g/dL RDW 16.0 H (11.5-15.5) % Plt Count 591 H (150-450) k/uL MPV 10.2 Neutrophils % 85 % Lymphocytes % 8 % Monocytes % 3 % Eosinophils % 2 % Basophils % 0 % Neutrophils # 16.6 H (1.3-7.7) k/uL Lymphocytes # 1.5 (1.0-4.8) k/uL Monocytes # 0.6 (0-1.0) k/uL Eosinophils # 0.3 (0-0.7) k/uL Basophils # 0.1 (0-0.2) k/uL Hypochromasia Slight PT 13.9 H (10.0-12.5) sec INR 1.3 H (<1.2) APTT 28.5 (22.0-30.0) sec Sodium 141 (137-145) mmol/L Potassium 5.1 (3.5-5.1) mmol/L Chloride 111 H (98-107) mmol/L Carbon Dioxide 26 (22-30) mmol/L Anion Gap 4 mmol/L BUN 22 H (9-20) mg/dL Creatinine 0.91 (0.66-1.25) mg/dL Est GFR (CKD-EPI)AfAm 89 (>60 ml/min/1.73 sqM) Est GFR (CKD-EPI)NonAf 77 (>60 ml/min/1.73 sqM) Glucose 100 H (74-99) mg/dL Plasma Lactic Acid Naldo (0.7-2.0) mmol/L Calcium 8.8 (8.4-10.2) mg/dL Total Bilirubin 0.9 (0.2-1.3) mg/dL AST 36 (17-59) U/L ALT 18 (4-49) U/L Alkaline Phosphatase 89 (38-126) U/L Troponin I (0.000-0.034) ng/mL NT-Pro-B Natriuret Pep 91793 pg/mL Total Protein 6.0 L (6.3-8.2) g/dL Albumin 3.1 L (3.5-5.0) g/dL Influenza Type A (PCR) (Not Detectd) Influenza Type B (PCR) (Not Detectd) RSV (PCR) (Not Detectd) SARS-CoV-2 (PCR) (Not Detectd) 10/17/23 10/17/23 10/17/23 Range/Units 12:01 12:01 12:01 WBC (3.8-10.6) k/uL RBC (4.30-5.90) m/uL Hgb (13.0-17.5) gm/dL Hct (39.0-53.0) % MCV (80.0-100.0) fL MCH (25.0-35.0) pg MCHC (31.0-37.0) g/dL RDW (11.5-15.5) % Plt Count (150-450) k/uL MPV Neutrophils % % Lymphocytes % % Monocytes % % Eosinophils % % Basophils % % Neutrophils # (1.3-7.7) k/uL Lymphocytes # (1.0-4.8) k/uL Monocytes # (0-1.0) k/uL Eosinophils # (0-0.7) k/uL Basophils # (0-0.2) k/uL Hypochromasia PT (10.0-12.5) sec INR (<1.2) APTT (22.0-30.0) sec Sodium (137-145) mmol/L Potassium (3.5-5.1) mmol/L Chloride (98-107) mmol/L Carbon Dioxide (22-30) mmol/L Anion Gap mmol/L BUN (9-20) mg/dL Creatinine (0.66-1.25) mg/dL Est GFR (CKD-EPI)AfAm (>60 ml/min/1.73 sqM) Est GFR (CKD-EPI)NonAf (>60 ml/min/1.73 sqM) Glucose (74-99) mg/dL Plasma Lactic Acid Naldo 1.6 (0.7-2.0) mmol/L Calcium (8.4-10.2) mg/dL Total Bilirubin (0.2-1.3) mg/dL AST (17-59) U/L ALT (4-49) U/L Alkaline Phosphatase (38-126) U/L Troponin I 0.026 (0.000-0.034) ng/mL NT-Pro-B Natriuret Pep pg/mL Total Protein (6.3-8.2) g/dL Albumin (3.5-5.0) g/dL Influenza Type A (PCR) Not Detected (Not Detectd) Influenza Type B (PCR) Not Detected (Not Detectd) RSV (PCR) Not Detected (Not Detectd) SARS-CoV-2 (PCR) Not Detected (Not Detectd) - EKG Data -: EKG Interpreted by Ut EKG Comments: EKG taken at 11: 29 shows normal sinus rhythm with inverted T waves in lateral leads. Ventricular rate 66, OK interval 177, QRS duration 99, QT/QTc 464/478. - Radiology Data Radiology results: report reviewed, image reviewed Disposition Clinical Impression: Congestive heart failure, Leukocytosis Disposition: ADMITTED IP TO THIS HOSP Condition: Fair Time of Disposition: 14:27
[2023-10-17 12:24] LABS: Basophils # (A) 0.1 k/uL (0-0.2); Basophils % (A) 0 %; Eosinophils # (A) 0.3 k/uL (0-0.7); Eosinophils % (A) 2 %; HCT 50.8 % (39.0-53.0); Hypochromasia Slight; Lymphocytes # (A) 1.5 k/uL (1.0-4.8); Lymphocytes % (A) 8 %; MCH 30.6 pg (25.0-35.0); MCHC 31.5 g/dL (31.0-37.0); MCV 97.2 fL (80.0-100.0); Mean Platelet Volume 10.2; Monocytes # (A) 0.6 k/uL (0-1.0); Monocytes % (A) 3 %; Neutrophils # (A) 16.6 k/uL (1.3-7.7); Neutrophils % (A) 85 %; Platelet Count 591 k/uL (150-450); RBC 5.23 m/uL (4.30-5.90); WBC 19.4 k/uL (3.8-10.6)
[2023-10-17 12:27] LABS: INR 1.3 (<1.2); Partial Thromboplastin Time 28.5 sec (22.0-30.0); Prothrombin Time 13.9 sec (10.0-12.5)
[2023-10-17 12:44] LABS: ALT 18 U/L (4-49); AST 36 U/L (17-59); African American GFR (CKD) 89 (>60 ml/min/1.73 sqM); Albumin 3.1 g/dL (3.5-5.0); Alkaline Phosphatase 89 U/L (38-126); Anion Gap 4 mmol/L; Blood Urea Nitrogen 22 mg/dL (9-20); Calcium 8.8 mg/dL (8.4-10.2); Carbon Dioxide 26 mmol/L (22-30); Chloride 111 mmol/L (98-107); Glucose 100 mg/dL (74-99); Non-African American GFR(CKD) 77 (>60 ml/min/1.73 sqM); Potassium 5.1 mmol/L (3.5-5.1); Sodium 141 mmol/L (137-145); Total Bilirubin 0.9 mg/dL (0.2-1.3)
[2023-10-17 12:51] LABS: NT-Pro-B-Type Natriuretic Pept 26900 pg/mL
--- NOTE | 2023-10-17 13:23 | XR ---
EXAMINATION TYPE: XR chest 2V DATE OF EXAM: 10/17/2023 COMPARISON: 10/04/2022 HISTORY: 83-year-old male shortness of breath, difficulty breathing TECHNIQUE: AP and lateral views FINDINGS: The heart is enlarged. Hyperinflation. Interstitial density. Small bilateral pleural effusions with b ibasilar opacities. IMPRESSION: Correlate for CHF with pulmonary vascular congestion. Small bilateral pleural effusions with adjacent atelectasis and/or consolidation.
[2023-10-17] MEDS ORDERED: KETOROLAC 15 MG/ML 1 ML VIAL IVP PRN (15:11)
[2023-10-17] MEDS ORDERED: NALOXONE 0.4 MG/ML 1 ML VIAL IV PRN (15:11)
[2023-10-17] MEDS ORDERED: RX INFO: IV CONTRAST WAS GIVEN 1 EACH MISC MISCELLANE PRN (19:49)
[2023-10-17] MEDS ORDERED: LACTULOSE 20 GM/30 ML CUP PO PRN (19:49)
[2023-10-17] MEDS ORDERED: LORazepam 0.5 MG TAB PO PRN (19:49)
[2023-10-17] MEDS ORDERED: CALCIUM CARBONATE 500 MG CHEWABLE PO PRN (19:49)
--- NOTE | 2023-10-17 19:53 | P.HPIM ---
History of Present Illness H&P Date: 10/17/23 Chief Complaint: Short of breath This is a very pleasant 83-year-old patient who follows with visiting physicians Henok Harvey. Chronic stable medical conditions include CAD with a previous OK, hypertension, hyperlipidemia asthma. Patient is ex-smoker. Lives by himself. Presents with 3 to 4 days of increasing shortness of breath lower extremity edema. Decreased appetite. No fever no chills. Uses 1 pillow at night. Has a slight congested cough. Review of systems: GEN.: Tired, decreased appetite EYES: None HEENT: None NECK: None RESPIRATORY: As above e CARDIOVASCULAR: As above GASTROINTESTINAL: None GENITOURINARY: None MUSCULOSKELETAL: Some joint pains LYMPHATICS: None HEMATOLOGICAL: None PSYCHIATRY: None NEUROLOGICAL: None Social history: Patient smoked for 12 years stopped smoking age of 29. Smoked half a pack a day. 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 Physical examination: VITAL SIGNS: 98.6, 68, 16, 151 x 68, 98% on 3 L GENERAL: BMI 19.2, sitting at edge of the bed slightly tired.. Decrease in muscle mass EYES: Pupils equal. Conjunctiva aditya l. HEENT: External appearance of nose and ears normal, oral cavity grossly normal. Decreased hearing NECK: JVD not raised; masses not palpable. HEART: First and second heart sounds are normal; edema present a. LUNGS: Respiratory rate normal; basal crackles n. ABDOMEN: Soft, nontender, liver spleen not palpable, no masses palpable. PSYCH: Alert and oriented x3; mood and affect aditya l. MUSCULOSKELETAL:No Clubbing/cyanosis;muscles-grossly intact. OA NEUROLOGICAL: Cranial nerves grossly intact; no facial asymmetry, power and sensation grossly intact. LYMPHATICS: No lymph nodes palpable in the axilla and neck INVESTIGATIONS, reviewed in the clinical context: October 16: White count 19.4 hemoglobin 16 platelets 591 potassium 5.1 BUN 22 creatinine 0.91 proBNP [id number] albumin 3.1 procalcitonin 0.05 Influenza type A, type B, RSV, COVID-19: Not detected EKG tracing personally reviewed by me-normal sinus rhythm. Some T wave changes. Chest x-ray film personally reviewed by me-venous prominence. Assessment plan: -Acute congestive heart failure exacerbation, EF not known IV Lasix 40 mg every 12. Fluid restriction 1800 cc a day. Strict I's and O's. 2D echocardiogram. -Essential hypertension Lisinopril 5 mg a day. Tenormin 25 mg a day. -Cognitive impairment. Aricept -Probable history of atrial fibrillation Xarelto -Mild protein calorie malnutrition Ensure -Primary osteoarthritis Tylenol as needed -Full code Care was discussed with the patient. Questions answered. Past Medical History Past Medical History: Asthma, CVA/TIA, Hyperlipidemia, Hypertension, Myocardial Infarction (OK) Additional Past Medical History / Comment(s): TIA-2012 R hand residual weakness Last Myocardial Infarction Date:: 2013 History of Any Multi-Drug Resistant Organisms: None Reported Past Surgical History: Cholecystectomy, Hernia Repair, Tonsillectomy Additional Past Surgical History / Comment(s): SUMANTH CATARACTS Past Anesthesia/Blood Transfusion Reactions: No Reported Reaction Past Psychological History: No Psychological Hx Reported Smoking Status: Never smoker Past Alcohol Use History: Rare Past Drug Use History: None Reported - Past Family History Mother Family Medical History: Cancer Father Family Medical History: Cancer Medications and Allergies Home Medications Medication Instructions Recorded Confirmed Type Latanoprost [Xalatan 0.005%] 1 drop BOTH EYES BID 06/25/16 10/17/23 History Aspirin EC [Ecotrin Low Dose] 162 mg PO DAILY 07/08/21 10/17/23 History Donepezil [Aricept] 10 mg PO DAILY 07/08/21 10/17/23 History Rivaroxaban [Xarelto] 2.5 mg PO BID 07/08/21 10/17/23 History Ferrous Sulfate [Iron] 325 mg PO DAILY 06/29/22 10/17/23 History Rosuvastatin Calcium 5 mg PO HS 06/29/22 10/17/23 History lisinopriL [Zestril] 5 mg PO DAILY #30 tab 10/04/22 10/17/23 Rx Brimonidine Tartrate [Alphagan P 1 drop BOTH EYES BID 10/17/23 10/17/23 History 0.2% Ophth Soln] Furosemide [Lasix] 20 mg PO DAILY 10/17/23 10/17/23 History Loratadine-Pseudoeph 5-120 mg 1 tab PO DAILY 10/17/23 10/17/23 History [Claritin-D 12 Hour] Potassium Chloride ER [K-Dur 20] 20 meq PO DAILY 10/17/23 10/17/23 History atenoloL [Tenormin] 25 mg PO DAILY 10/17/23 10/17/23 History Allergies Allergy/AdvReac Type Severity Reaction Status Date / Time codeine AdvReac Nausea & Verified 10/17/23 13:08 Vomiting furosemide [From Lasix] AdvReac Nausea & Verified 10/17/23 18:58 Vomiting Physical Exam Vitals: Vital Signs Temp Pulse Resp BP Pulse Ox 10/17/23 18:00 71 12 163/70 97 10/17/23 17:00 148/67 10/17/23 16:00 16 165/72 95 10/17/23 15:00 16 151/68 96 10/17/23 14:00 68 12 163/72 98 10/17/23 13:00 160/76 10/17/23 12:55 14 160/76 10/17/23 11:27 98.6 F 67 12 162/85 97 Intake and Output 10/17/23 10/17/23 10/17/23 06:59 14:59 22:59 Other: Weight 58.967 kg 58.967 kg Results CBC & Chem 7: 10/17/23 12:01 10/17/23 12:01 Labs: Abnormal Lab Results - Last 24 Hours (Table) 10/17/23 10/17/23 10/17/23 Range/Units 12:01 12:01 12:01 WBC 19.4 H (3.8-10.6) k/uL RDW 16.0 H (11.5-15.5) % Plt Count 591 H (150-450) k/uL Neutrophils # 16.6 H (1.3-7.7) k/uL PT 13.9 H (10.0-12.5) sec INR 1.3 H (<1.2) Chloride 111 H (98-107) mmol/L BUN 22 H (9-20) mg/dL Glucose 100 H (74-99) mg/dL Total Protein 6.0 L (6.3-8.2) g/dL Albumin 3.1 L (3.5-5.0) g/dL Thrombosis Risk Factor Assmnt - Choose All That Apply Any of the Below Risk Factors Present?: Yes Each Factor Represents 1 point: Heart failure (<1month) Other Risk Factors: Yes Each Risk Factor Represents 3 Points: Age 75 years or older Thrombosis Risk Factor Assessment Total Risk Factor Score: 4 Thrombosis Risk Factor Assessment Level: Moderate Risk
[2023-10-17] MEDS: BRIMONIDINE TARTRATE 0.2% DROPS 5 ML BTL BOTH EYES SCH (20:42)
[2023-10-17] MEDS: ATORVASTATIN 10 MG TAB PO SCH (20:42)
[2023-10-17] MEDS: FUROSEMIDE 10 MG/ML 4 ML VIAL IV SCH (20:42)
[2023-10-17] MEDS: MELATONIN 3 MG TABLET PO PRN (20:42)
[2023-10-17] MEDS: LATANOPROST 0.005% OPHTH DROPS 2.5 ML BTL BOTH EYES SCH (20:42)
[2023-10-17] MEDS: RIVAROXABAN 2.5 MG TABLET PO SCH (21:17)
[2023-10-17 21:37] LABS: Appearance,Urine Clear (Clear); Bacteria,Urine Rare /hpf; Bilirubin,Urine Negative (Negative); Blood,Urine Moderate (Negative); Color,Urine Colorless; Glucose,Urine (UA) Negative (Negative); Ketones,Urine Negative (Negative); Leukocyte Esterase,Urine Negative (Negative); Mucus,Urine Rare /hpf; Nitrite,Urine Negative (Negative); PH, Urine 5.5 (5.0-8.0); Protein,Urine Trace (Negative); RBC,Urine 43 /hpf (0-5); Specific Gravity,Urine 1.009 (1.001-1.035); Urobilinogen,Urine <2.0 mg/dL (<2.0); WBC,Urine 5 /hpf (0-5)
[2023-10-18 06:54] LABS: African American GFR (CKD) 83 (>60 ml/min/1.73 sqM); Anion Gap 6 mmol/L; Blood Urea Nitrogen 23 mg/dL (9-20); Calcium 8.8 mg/dL (8.4-10.2); Carbon Dioxide 27 mmol/L (22-30); Chloride 108 mmol/L (98-107); Glucose 86 mg/dL (74-99); Non-African American GFR(CKD) 72 (>60 ml/min/1.73 sqM); Potassium 4.5 mmol/L (3.5-5.1); Sodium 141 mmol/L (137-145)
[2023-10-18] MEDS: atenoloL 25 MG TAB PO SCH (08:40)
[2023-10-18] MEDS: DONEPEZIL 10 MG TAB PO SCH (08:40)
[2023-10-18] MEDS: FERROUS SULFATE 325 MG TAB PO SCH (08:40)
[2023-10-18] MEDS: lisinopriL 5 MG TAB PO SCH (08:40)
[2023-10-18] MEDS: ASPIRIN 81 MG PO SCH (08:40)
--- NOTE | 2023-10-18 09:20 | P.CRDCN ---
History of Present Illness Consult date: 10/18/23 Consult reason: congestive heart failure History of present illness: History of present illness: This is an 83-year-old male patient of Dr. Bell with past medical history of peripheral arterial disease, hypertension, hyperlipidemia, chronic systolic heart failure, TIA. We have been asked to evaluate the patient for CHF. Patient presented to the emergency center due to difficulty in breathing, exertional dyspnea and lower extremity edema. Patient states he is feeling a little bit better at this time. He has been resumed on his home medications and started on IV Lasix 40 mg every 12 hours. Blood pressure 162/67, heart rate 67, pulse ox 92% on room air. Patient has a negative fluid balance of 1920 which does not appear to be accurate. EKG sinus rhythm no acute ST changes Chest x-ray: Correlate for heart failure with pulmonary vascular congestion. Small bilateral pleural effusions with adjacent atelectasis and/or consolidation. WBC 19.4, hemoglobin 16, platelet count 591. INR 1.3. Sodium 141, potassium 4.5, chloride 108, CO2 27, BUN 23 creatinine 0.97. Liver function test are normal. Troponin negative x 1. proBNP 26,900. Procalcitonin 0.05. Lactic acid 1.6. Urinalysis moderate blood, RBCs 43. Influenza A, influenza B, RSV, COVID-19 not detected. Home cardiac medications: Aspirin 162 mg daily, atenolol 25 mg daily, Lasix 20 mg daily, lisinopril 5 mg daily, potassium chloride 20 mEq daily, Xarelto 2.5 mg twice daily, rosuvastatin 5 mg at bedtime. Echocardiogram performed 06/26/2016 revealed EF 45 to 50%. Mild mitral regurgitation, trace tricuspid regurgitation Review Of Systems: At the time of my exam: CONSTITUTIONAL: Denies fever or chills. HEENT: Denies blurred vision, vision changes, or eye pain. Denies hemoptysis CARDIOVASCULAR: Denies chest pain. Denies orthopnea. Denies PND. Denies palpitations. + LE edema RESPIRATORY: + shortness of breath. + DENIS. GASTROINTESTINAL: Denies abdominal pain. Denies nausea or vomiting. HEMATOLOGIC: Denies bleeding disorders. GENITOURINARY: Denies any blood in urine. SKIN: Denies pruitis. Denies rash. Physical examination: Gen: This is an 83-year-old frail appearing male in no acute distress. VS: reviewed HEENT: Head is atraumatic, normocephalic. Pupils equal, round. Sclerae is anicteric. NECK: Supple. No JVD. LUNGS: Decreased air entry bilaterally. No intercostal retractions. HEART: Regular rate and rhythm. No murmur. ABDOMEN: Soft No tenderness. EXTREMITIES: 1+ bilateral pedal edema. No calf tenderness. NEUROLOGICAL: Patient is awake, alert and oriented x3. Assessment: Acute on chronic systolic heart failure Hypertension Hyperlipidemia PAD History of TIA Hematuria on urinalysis. Plan: Resume patient's home cardiac medications Continue IV Lasix 40 mg every 12 hours Monitor MANDIE, daily weights, electrolytes and renal function Obtain 2-D echocardiogram and Doppler study to assess cardiac structure and function Further recommendations to follow based upon clinical course Thank you kindly for this consultation. Nurse practitioner note has been reviewed, I agree with documented findings and plan of care. Patient was seen and examined. Past Medical History Past Medical History: Asthma, CVA/TIA, Hyperlipidemia, Hypertension, Myocardial Infarction ([place]) Additional Past Medical History / Comment(s): TIA-2012 R hand residual weakness Last Myocardial Infarction Date:: 2013 History of Any Multi-Drug Resistant Organisms: None Reported Past Surgical History: Cholecystectomy, Hernia Repair, Tonsillectomy Additional Past Surgical History / Comment(s): SUMANTH CATARACTS Past Anesthesia/Blood Transfusion Reactions: No Reported Reaction Past Psychological History: No Psychological Hx Reported Smoking Status: Never smoker Past Alcohol Use History: Rare Past Drug Use History: None Reported - Past Family History Mother Family Medical History: Cancer Father Family Medical History: Cancer Medications and Allergies Home Medications Medication Instructions Recorded Confirmed Type Latanoprost [Xalatan 0.005%] 1 drop BOTH EYES BID 06/25/16 10/17/23 History Aspirin EC [Ecotrin Low Dose] 162 mg PO DAILY 07/08/21 10/17/23 History Donepezil [Aricept] 10 mg PO DAILY 07/08/21 10/17/23 History Rivaroxaban [Xarelto] 2.5 mg PO BID 07/08/21 10/17/23 History Ferrous Sulfate [Iron] 325 mg PO DAILY 06/29/22 10/17/23 History Rosuvastatin Calcium 5 mg PO HS 06/29/22 10/17/23 History lisinopriL [Zestril] 5 mg PO DAILY #30 tab 10/04/22 10/17/23 Rx Brimonidine Tartrate [Alphagan P 1 drop BOTH EYES BID 10/17/23 10/17/23 History 0.2% Ophth Soln] Furosemide [Lasix] 20 mg PO DAILY 10/17/23 10/17/23 History Loratadine-Pseudoeph 5-120 mg 1 tab PO DAILY 10/17/23 10/17/23 History [Claritin-D 12 Hour] Potassium Chloride ER [K-Dur 20] 20 meq PO DAILY 10/17/23 10/17/23 History atenoloL [Tenormin] 25 mg PO DAILY 10/17/23 10/17/23 History Allergies Allergy/AdvReac Type Severity Reaction Status Date / Time codeine AdvReac Nausea & Verified 10/17/23 13:08 Vomiting furosemide [From Lasix] AdvReac Nausea & Verified 10/17/23 18:58 Vomiting Physical Exam Vitals: Vital Signs Temp Pulse Pulse Resp BP BP Pulse Ox 10/18/23 00:43 97.6 F 61 15 135/66 94 L 10/17/23 20:00 97 10/17/23 19:23 98.1 F 69 15 145/73 97 10/17/23 18:00 71 12 163/70 97 10/17/23 17:00 148/67 10/17/23 16:00 16 165/72 95 10/17/23 15:00 16 151/68 96 10/17/23 14:00 68 12 163/72 98 10/17/23 13:00 160/76 10/17/23 12:55 14 160/76 10/17/23 11:27 98.6 F 67 12 162/85 97 Intake and Output 10/17/23 10/18/23 10/18/23 22:59 06:59 14:59 Intake Total 0 Output Total 120 1800 Balance -120 -1800 Intake: Oral 0 Output: Urine 120 1800 Other: Voiding Method Urinal Weight 58.967 kg 59.5 kg Results 10/17/23 12:01 10/18/23 06:22 Cardiac Enzymes 10/17/23 10/17/23 Range/Units 12:01 12:01 AST 36 (17-59) U/L Troponin I 0.026 (0.000-0.034) ng/mL Coagulation 10/17/23 Range/Units 12: PT 13.9 H (10.0-12.5) sec APTT 28.5 (22.0-30.0) sec CBC 10/17/23 Range/Units 12:01 WBC 19.4 H (3.8-10.6) k/uL RBC 5.23 (4.30-5.90) m/uL Hgb 16.0 (13.0-17.5) gm/dL Hct 50.8 (39.0-53.0) % Plt Count 591 H (150-450) k/uL Comprehensive Metabolic Panel 10/17/23 10/18/23 Range/Units 12:01 06:22 Sodium 141 141 (137-145) mmol/L Potassium 5.1 4.5 (3.5-5.1) mmol/L Chloride 111 H 108 H (98-107) mmol/L Carbon Dioxide 26 27 (22-30) mmol/L BUN 22 H 23 H (9-20) mg/dL Creatinine 0.91 0.97 (0.66-1.25) mg/dL Glucose 100 H 86 (74-99) mg/dL Calcium 8.8 8.8 (8.4-10.2) mg/dL AST 36 (17-59) U/L ALT 18 (4-49) U/L Alkaline Phosphatase 89 (38-126) U/L Total Protein 6.0 L (6.3-8.2) g/dL Albumin 3.1 L (3.5-5.0) g/dL Current Medications Generic Name Dose Route Start Last Admin Trade Name Freq PRN Reason Stop Dose Admin Acetaminophen 650 mg 10/17/23 19:49 Acetaminophen Tab 325 Mg Tab PO Q6HR PRN Mild Pain or Fever > 100.5 Aspirin 162 mg 10/18/23 09:00 Aspirin 81 Mg PO DAILY NIEVES Atenolol 25 mg 10/18/23 09:00 Atenolol 25 Mg Tab PO DAILY NIEVES Atorvastatin Calcium 10 mg 10/17/23 21:00 10/17/23 20:42 Atorvastatin 10 Mg Tab PO 10 mg HS NIEVES Administration Brimonidine Tartrate 1 drops 10/17/23 21:00 10/17/23 20:42 Brimonidine Tartrate 0.2% Drops 5 Ml Btl BOTH EYES 1 drops BID NIEVES Administration Calcium Carbonate/Glycine 1,000 mg 10/17/23 19:49 Calcium Carbonate 500 Mg Chewable PO Q4HR PRN Dyspepsia Donepezil HCl 10 mg 10/18/23 09:00 Donepezil 10 Mg Tab PO DAILY [facility] Ferrous Sulfate 325 mg 10/18/23 09:00 Ferrous Sulfate 325 Mg Tab PO DAILY NIEVES Furosemide 40 mg 10/17/23 21:00 10/17/23 20:42 Furosemide 10 Mg/Ml 4 Ml Vial IV 40 mg Q12HR NIEVES Administration Ketorolac Tromethamine 15 mg 10/17/23 15:11 Ketorolac 15 Mg/Ml 1 Ml Vial IVP 10/20/23 15:12 Q6HR PRN Moderate Pain (Scale 4 to 6) Lactulose 20 gm 10/17/23 19:49 Lactulose 20 Gm/30 Ml Cup PO DAILY PRN Constipation Latanoprost 1 drops 10/17/23 21:00 10/17/23 20:42 Latanoprost 0.005% Ophth Drops 2.5 Ml Btl BOTH EYES 1 drops BID NIEVES Administration Lisinopril 5 mg 10/18/23 09:00 Lisinopril 5 Mg Tab PO DAILY NIEVES Lorazepam 0.5 mg 10/17/23 19:49 Lorazepam 0.5 Mg Tab PO Q6HR PRN Anxiety Melatonin 3 mg 10/17/23 19:49 10/17/23 20:42 Melatonin 3 Mg Tablet PO 3 mg HS PRN Administration Insomnia Miscellaneous Information 1 each 10/17/23 19:49 Rx Info: Iv Contrast Was Given 1 Each Misc MISCELLANE 10/19/23 19:49 DAILY PRN Per Protocol Naloxone HCl 0.2 mg 10/17/23 15:11 Naloxone 0.4 Mg/Ml 1 Ml Vial IV Q2M PRN Opioid Reversal Ondansetron HCl 4 mg 10/17/23 19:49 Ondansetron 4 Mg/2 Ml Vial IVP Q8HR PRN Nausea And Vomiting Rivaroxaban 2.5 mg 10/17/23 21:00 10/17/23 21:17 Rivaroxaban 2.5 Mg Tablet PO 2.5 mg BID NIEVES Administration Protocol Intake and Output 10/17/23 10/18/23 10/18/23 22:59 06:59 14:59 Intake Total 0 Output Total 120 1800 Balance -120 -1800 Intake: Oral 0 Output: Urine 120 1800 Other: Voiding Method Urinal Weight 58.967 kg 59.5 kg 10/17/23 12:01 10/18/23 06:22
--- NOTE | 2023-10-18 10:19 | CT ---
Exam: CT Chest with contrast. Date: 10/18/2023. Comparison: Chest x-ray on 10/17/2023. 09/21/2022. History: Question right-sided mass. Technique: CT examination of the chest was performed following the intravenous administration of 100 mL of Isovue-300. Coronal and sagittal reformats were performed. CT dose lowering techniques were us ed, to include: automated exposure control, adjustment for patient size, and/or use of iterative ludmila nstruction. FINDINGS: Mediastinum and Lilian: There is no axillary, mediastinal or hilar lymphadenopathy. Pleural and Pericardial spaces: There is a large right and moderate left pleural effusion. Upper Abdomen: The gallbladder surgically absent. The spleen is enlarged measuring approximately 15 c m in AP dimension along its visualized portion. Subtle nodular contour to the liver. Cardiovascular: There is mild vascular calcification throughout the thoracic aorta without evidence o f aneurysmal dilation or dissection. Moderate coronary artery calcifications and cardiomegaly is iden tified. Pulmonary Artery: There are no central pulmonary arterial abnormalities. The examination was not per formed to evaluate for pulmonary embolism. Lung Parenchyma and Airways: There is no focal consolidation or significant mass identified. There is a band of opacity in the right lung apex which is favored to represent scarring. This is unchanged. Bones: No fracture or aggressive osseous lesion. IMPRESSION: 1. Large right and moderate left pleural effusion. 2. No focal airspace disease or mass identified. 3. Moderate coronary artery calcifications and cardiomegaly. 4. Splenomegaly.
--- NOTE | 2023-10-18 10:46 | CA ---
Transthoracic Echo Report Name: Roberto Carlos Duval Age: 83 Gender: M : 1940 Exam Date: 10/18/2023 09:19 Exam Location: [place] [facility] Ht (in): 69 Wt (lb): 130 Ordering Physician: Cesario Mabry MD Attending/Referring Phys: Vocal Music Teacher Veronica Dozier RDCS Procedure CPT: Indications: chf Cardiac Hx: Technical Quality: Contrast 1: Total Dose (mL): Contrast 2: Total Dose (mL): MEASUREMENTS (Male / Female) Normal Values 2D ECHO LV Diastolic Diameter PLAX 6.6 cm 4.2 - 5.9 / 3.9 - 5.3 cm LV Systolic Diameter PLAX 5.2 cm IVS Diastolic Thickness 0.8 cm 0.6 - 1.0 / 0.6 - 0.9 cm LVPW Diastolic Thickness 0.6 cm 0.6 - 1.0 / 0.6 - 0.9 cm LV Relative Wall Thickness 0.2 LVOT Diameter 1.9 cm Aortic Root Diameter 3.1 cm LA Systolic Diameter LX 4.7 cm 3.0 - 4.0 / 2.7 - 3.8 cm LV Diastolic Volume MOD BP 156.9 cm??? 67 - 155 / 56 - 104 cm??? LV Systolic Volume MOD BP 90.8 cm??? 22 - 58 / 19 - 49 cm??? LV Ejection Fraction MOD BP 42.1 % >= 55 % LV Cardiac Index MOD BP 2550.9 cm???/min???m??? LV Diastolic Volume MOD 4C 150.8 cm??? LV Systolic Volume MOD 4C 106.7 cm??? LV Ejection Fraction MOD 4C 29.2 % LV Cardiac Index MOD 4C 1701.9 cm???/min???m??? LV Diastolic Length 4C 8.9 cm LV Systolic Length 4C 7.7 cm LV Diastolic Volume MOD 2C 163.0 cm??? LV Systolic Volume MOD 2C 71.9 cm??? LV Ejection Fraction MOD 2C 55.9 % LV Cardiac Index MOD 2C 3515.6 cm???/min???m??? LV Diastolic Length 2C 8.9 cm LV Systolic Length 2C 8.3 cm DOPPLER AV Peak Velocity 131.9 cm/s AV Peak Gradient 7.0 mmHg AV Mean Velocity 86.0 cm/s AV Mean Gradient 3.3 mmHg AV Velocity Time Integral 26.6 cm LVOT Peak Velocity 79.6 cm/s LVOT Peak Gradient 2.5 mmHg LVOT Velocity Time Integral 15.0 cm LVOT Stroke Volume 41.5 cm??? LVOT Stroke Volume Index 24.1 ml/m??? LVOT Cardiac Index 1600.5 cm???/min???m??? AV Area Cont Eq vti 1.6 cm??? AV Area Cont Eq pk 1.7 cm??? MR Peak Velocity 439.0 cm/s MR Peak Gradient 77.1 mmHg Mitral E Point Velocity 103.6 cm/s Mitral A Point Velocity 71.8 cm/s Mitral E to A Ratio 1.4 MV Deceleration Time 188.4 ms MV E' Velocity 4.4 cm/s Mitral E to MV E' Ratio 23.8 TR Peak Velocity 228.4 cm/s TR Peak Gradient 20.9 mmHg PV Peak Velocity 65.7 cm/s PV Peak Gradient 1.7 mmHg FINDINGS Left Ventricle Left ventricular ejection fraction is estimated at 40-%. Moderately increased left ventricular diastolic diameter. Mildly increased left ventricular diastolic volume. Severely increased left ventricular systolic volume. Moderately decreased left ventricular ejection fraction. Right Ventricle Normal right ventricular size. Right ventricular systolic pressure estimated at 30.87mmhg. Right Atrium Normal right atrial size. Left Atrium Moderately increased left atrial diameter. Mitral Valve [id number] mitral regurgitation. Aortic Valve Trace to mild aortic regurgitation. Tricuspid Valve Mild tricuspid regurgitation. Pulmonic Valve Mild pulmonic regurgitation. Pericardium Pleural effusion. Aorta Normal size aortic root. CONCLUSIONS Moderate LV systolic dysfunction Mild to moderate mitral regurgitation Mild tricuspid regurgitation Large pleural effusion noted Previewed by: Dr. Tony Johnson MD (Electronically Signed) Final Date: 18 October 2023 10:45
--- NOTE | 2023-10-18 15:32 | P.PN ---
Progress Note - Text Progress Note Date: 10/18/23 Chief Complaint: Short of breath This is a very pleasant 83-year-old patient who follows with visiting physicians Henok Harvey. Chronic stable medical conditions include CAD with a previous GA, hypertension, hyperlipidemia asthma. Patient is ex-smoker. Lives by himself. Presents with 3 to 4 days of increasing shortness of breath lower extremity edema. Decreased appetite. No fever no chills. Uses 1 pillow at night. Has a slight congested cough. October 17: Breathing slightly better. Making good urine output. On IV Lasix. Eating fair. Discussed. 2D echo shows a EF of 40%. Change Tenormin to Lopressor. Active Medications Acetaminophen (Acetaminophen Tab 325 Mg Tab) 650 mg PO Q6HR PRN PRN Reason: Mild Pain or Fever > 100.5 Aspirin (Aspirin 81 Mg) 162 mg PO DAILY [facility] Last Admin: 10/18/23 08:40 Dose: 162 mg Atenolol (Atenolol 25 Mg Tab) 25 mg PO DAILY [facility] Last Admin: 10/18/23 08:40 Dose: 25 mg Atorvastatin Calcium (Atorvastatin 10 Mg Tab) 10 mg PO HS [facility] Last Admin: 10/17/23 20:42 Dose: 10 mg Brimonidine Tartrate (Brimonidine Tartrate 0.2% Drops 5 Ml Btl) 1 drops BOTH EYES BID [facility] Last Admin: 10/18/23 08:40 Dose: 1 drops Calcium Carbonate/Glycine (Calcium Carbonate 500 Mg Chewable) 1,000 mg PO Q4HR PRN PRN Reason: Dyspepsia Donepezil HCl (Donepezil 10 Mg Tab) 10 mg PO DAILY [facility] Last Admin: 10/18/23 08:40 Dose: 10 mg Ferrous Sulfate (Ferrous Sulfate 325 Mg Tab) 325 mg PO DAILY [facility] Last Admin: 10/18/23 08:40 Dose: 325 mg Furosemide (Furosemide 10 Mg/Ml 4 Ml Vial) 40 mg IV Q12HR [facility] Last Admin: 10/18/23 08:41 Dose: 40 mg Ketorolac Tromethamine (Ketorolac 15 Mg/Ml 1 Ml Vial) 15 mg IVP Q6HR PRN PRN Reason: Moderate Pain (Scale 4 to 6) Stop: 10/20/23 15:12 Lactulose (Lactulose 20 Gm/30 Ml Cup) 20 gm PO DAILY PRN PRN Reason: Constipation Latanoprost (Latanoprost 0.005% Ophth Drops 2.5 Ml Btl) 1 drops BOTH EYES BID [facility] Last Admin: 10/18/23 08:41 Dose: 1 drops Lisinopril (Lisinopril 5 Mg Tab) 5 mg PO DAILY [facility] Last Admin: 10/18/23 08:40 Dose: 5 mg Lorazepam (Lorazepam 0.5 Mg Tab) 0.5 mg PO Q6HR PRN PRN Reason: Anxiety Melatonin (Melatonin 3 Mg Tablet) 3 mg PO HS PRN PRN Reason: Insomnia Last Admin: 10/17/23 20:42 Dose: 3 mg Miscellaneous Information (Rx Info: Iv Contrast Was Given 1 Each Misc) 1 each MISCELLANE DAILY PRN PRN Reason: Per Protocol Stop: 10/19/23 19:49 Naloxone HCl (Naloxone 0.4 Mg/Ml 1 Ml Vial) 0.2 mg IV Q2M PRN PRN Reason: Opioid Reversal Ondansetron HCl (Ondansetron 4 Mg/2 Ml Vial) 4 mg IVP Q8HR PRN PRN Reason: Nausea And Vomiting Rivaroxaban (Rivaroxaban 2.5 Mg Tablet) 2.5 mg PO BID [facility]; Protocol Last Admin: 10/18/23 08:41 Dose: 2.5 mg Social history: Patient smoked for 12 years stopped smoking age of 29. Smoked half a pack a day. 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 Physical examination: VITAL SIGNS: 98.3, 67, 17, 162 x 67, 92% room air GENERAL: Reclining in bed, breathing slightly better.. Decrease in muscle mass EYES: Pupils equal. Conjunctiva aditya l. HEENT: External appearance of nose and ears normal, oral cavity grossly normal. Decreased hearing NECK: JVD possibly raised; masses not palpable. HEART: First and second heart sounds are normal; edema present a. LUNGS: Respiratory rate increased; basal crackles n. ABDOMEN: Soft, nontender, liver spleen not palpable, no masses palpable. PSYCH: Alert and oriented x3; mood and affect aditya l. MUSCULOSKELETAL:No Clubbing/cyanosis;muscles-grossly intact. OA INVESTIGATIONS, reviewed in the clinical context: CT chest: Large right and moderate left pleural effusion. No airspace disease. Moderate coronary artery calcifications cardiomegaly. Splenomegaly. 2D echocardiogram: EF 40%. Severely increased left ventricular systolic volume. Mild to moderate MR. October 17: Potassium 4.5 creatinine 0.97 October 16: White count 19.4 hemoglobin 16 platelets 591 potassium 5.1 BUN 22 creatinine 0.91 proBNP 24341 albumin 3.1 procalcitonin 0.05 Influenza type A, type B, RSV, COVID-19: Not detected EKG tracing personally reviewed by me-normal sinus rhythm. Some T wave changes. Chest x-ray film personally reviewed by me-venous prominence. Assessment plan: -Acute congestive heart failure exacerbation, from systolic dysfunction EF 40%: Slow to respond IV Lasix 40 mg every 12. Fluid restriction 1800 cc a day. Strict I's and O's. -Bilateral pleural effusion right greater than left secondary to CHF IV Lasix -Mild to moderate mitral regurgitation -Essential hypertension Lisinopril 5 mg a day. Tenormin 25 mg a day. -Cognitive impairment. Aricept -Probable history of atrial fibrillation Xarelto -Mild protein calorie malnutrition Ensure -Primary osteoarthritis Tylenol as needed -Full code Discussed with patient Past Medical History Past Medical History: Asthma, CVA/TIA, Hyperlipidemia, Hypertension, Myocardial Infarction ([place]) Additional Past Medical History / Comment(s): TIA-2012 R hand residual weakness Last Myocardial Infarction Date:: 2013 History of Any Multi-Drug Resistant Organisms: None Reported Past Surgical History: Cholecystectomy, Hernia Repair, Tonsillectomy Additional Past Surgical History / Comment(s): SUMANTH CATARACTS Past Anesthesia/Blood Transfusion Reactions: No Reported Reaction Past Psychological History: No Psychological Hx Reported Smoking Status: Never smoker Past Alcohol Use History: Rare Past Drug Use History: None Reported
[2023-10-18] MEDS: ACETAMINOPHEN TAB 325 MG TAB PO PRN (18:24)
[2023-10-18] MEDS: METOPROLOL TARTRATE 25 MG TAB PO SCH (22:11)
[2023-10-19 07:43] LABS: African American GFR (CKD) 74 (>60 ml/min/1.73 sqM); Anion Gap 9 mmol/L; Blood Urea Nitrogen 24 mg/dL (9-20); Calcium 8.9 mg/dL (8.4-10.2); Carbon Dioxide 29 mmol/L (22-30); Chloride 103 mmol/L (98-107); Glucose 79 mg/dL (74-99); Non-African American GFR(CKD) 64 (>60 ml/min/1.73 sqM); Potassium 4.7 mmol/L (3.5-5.1); Sodium 141 mmol/L (137-145)
[2023-10-19] MEDS: ONDANSETRON 4 MG/2 ML VIAL IVP PRN (10:32)
[2023-10-19 12:48] VITALS: BMI 18.3
--- NOTE | 2023-10-19 13:13 | CT ---
EXAMINATION TYPE: CT brain wo con DATE OF EXAM: 10/19/2023 COMPARISON: 07/08/2021 HISTORY: 83-year-old male acute blurry vision starting today TECHNIQUE: Examination was done in axial plane without intravenous contrast. Coronal and sagittal r econstructions performed. CT DLP: 1134.4 mGycm Automated exposure control for dose reduction was used. FINDINGS: Large areas of encephalomalacia along the deep watershed zones, left greater than right, appears unch anged compared to 07/08/2021. There is also moderate volume loss overlying the bilateral cerebral con vexities. At this chronic calcifications in the carotid siphons. There is no evidence of acute intracranial hemorrhage, acute ischemic changes, mass, mass-effect, or extra-axial fluid collection. There is no effacement of cerebral sulci or basal subarachnoid cister ns. There is no hydrocephalus. There is no midline shift. Cage-white matter distinction is preserv ed. Leftward nasal septal deviation. Paranasal sinuses and mastoid air cells well pneumatized. Orbits and globes are intact. 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 Appearance unchanged from 2020. No acute intracranial abnormality seen. If concern for subtle acute ischemia, follow-up MRI.
--- NOTE | 2023-10-19 13:54 | P.PN ---
Progress Note - Text Progress Note Date: 10/19/23 Chief Complaint: Short of breath This is a very pleasant 83-year-old patient who follows with visiting physicians Henok Harvey. Chronic stable medical conditions include CAD with a previous ME, hypertension, hyperlipidemia asthma. Patient is ex-smoker. Lives by himself. Presents with 3 to 4 days of increasing shortness of breath lower extremity edema. Decreased appetite. No fever no chills. Uses 1 pillow at night. Has a slight congested cough. October 17: Breathing slightly better. Making good urine output. On IV Lasix. Eating fair. Discussed. 2D echo shows a EF of 40%. Change Tenormin to Lopressor. October 18: Good urine output. Remains on IV Lasix. Had a short episode of blurring of vision this morning. Resolved. No other focal neurological symptoms. Close to 3000 cc in negative fluid balance. CT scan of the brain done showed chronic old changes. Discussed with patient and daughter at the bedside. Active Medications Acetaminophen (Acetaminophen Tab 325 Mg Tab) 650 mg PO Q6HR PRN PRN Reason: Mild Pain or Fever > 100.5 Last Admin: 10/18/23 18:24 Dose: 650 mg Aspirin (Aspirin 81 Mg) 162 mg PO DAILY [facility] Last Admin: 10/19/23 07:43 Dose: 162 mg Atorvastatin Calcium (Atorvastatin 10 Mg Tab) 10 mg PO HS [facility] Last Admin: 10/18/23 22:11 Dose: 10 mg Brimonidine Tartrate (Brimonidine Tartrate 0.2% Drops 5 Ml Btl) 1 drops BOTH EYES BID [facility] Last Admin: 10/19/23 07:46 Dose: 1 drops Calcium Carbonate/Glycine (Calcium Carbonate 500 Mg Chewable) 1,000 mg PO Q4HR PRN PRN Reason: Dyspepsia Donepezil HCl (Donepezil 10 Mg Tab) 10 mg PO DAILY [facility] Last Admin: 10/19/23 07:44 Dose: 10 mg Ferrous Sulfate (Ferrous Sulfate 325 Mg Tab) 325 mg PO DAILY [facility] Last Admin: 10/19/23 07:44 Dose: 325 mg Furosemide (Furosemide 10 Mg/Ml 4 Ml Vial) 40 mg IV Q12HR [facility] Last Admin: 10/19/23 10:33 Dose: 40 mg Ketorolac Tromethamine (Ketorolac 15 Mg/Ml 1 Ml Vial) 15 mg IVP Q6HR PRN PRN Reason: Moderate Pain (Scale 4 to 6) Stop: 10/20/23 15:12 Lactulose (Lactulose 20 Gm/30 Ml Cup) 20 gm PO DAILY PRN PRN Reason: Constipation Latanoprost (Latanoprost 0.005% Ophth Drops 2.5 Ml Btl) 1 drops BOTH EYES BID [facility] Last Admin: 10/19/23 07:46 Dose: 1 drops Lisinopril (Lisinopril 5 Mg Tab) 5 mg PO DAILY [facility] Last Admin: 10/19/23 07:44 Dose: 5 mg Lorazepam (Lorazepam 0.5 Mg Tab) 0.5 mg PO Q6HR PRN PRN Reason: Anxiety Melatonin (Melatonin 3 Mg Tablet) 3 mg PO HS PRN PRN Reason: Insomnia Last Admin: 10/18/23 22:11 Dose: 3 mg Metoprolol Tartrate (Metoprolol Tartrate 25 Mg Tab) 25 mg PO BID [facility] Last Admin: 10/19/23 07:44 Dose: 25 mg Miscellaneous Information (Rx Info: Iv Contrast Was Given 1 Each Misc) 1 each MISCELLANE DAILY PRN PRN Reason: Per Protocol Stop: 10/19/23 19:49 Naloxone HCl (Naloxone 0.4 Mg/Ml 1 Ml Vial) 0.2 mg IV Q2M PRN PRN Reason: Opioid Reversal Ondansetron HCl (Ondansetron 4 Mg/2 Ml Vial) 4 mg IVP Q8HR PRN PRN Reason: Nausea And Vomiting Last Admin: 10/19/23 10:32 Dose: 4 mg Rivaroxaban (Rivaroxaban 2.5 Mg Tablet) 2.5 mg PO BID [facility]; Protocol Last Admin: 10/19/23 07:43 Dose: 2.5 mg Social history: Patient smoked for 12 years stopped smoking age of 29. Smoked half a pack a day. 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 Physical examination: VITAL SIGNS: 97.6, 68, 17, 156 Paes 54, 92% room air GENERAL: Reclining.. Decrease in muscle mass EYES: Pupils equal. Conjunctiva aditya l. HEENT: External appearance of nose and ears normal, oral cavity grossly normal. Decreased hearing NECK: JVD possibly raised; masses not palpable. HEART: First and second heart sounds are normal; edema present a. LUNGS: Respiratory rate increased; basal crackles n. ABDOMEN: Soft, nontender, liver spleen not palpable, no masses palpable. PSYCH: Alert and oriented x3; mood and affect aditya l. MUSCULOSKELETAL:No Clubbing/cyanosis;muscles-grossly intact. OA INVESTIGATIONS, reviewed in the clinical context: October 18: Potassium 4.[address] brain: Bilateral cerebral encephalomalacia: Chronic CT chest: Large right and moderate left pleural effusion. No airspace disease. Moderate coronary artery calcifications cardiomegaly. Splenomegaly. 2D echocardiogram: EF 40%. Severely increased left ventricular systolic volume. Mild to moderate MR. October 17: Potassium 4.5 creatinine 0.97 October 16: White count 19.4 hemoglobin 16 platelets 591 potassium 5.1 BUN 22 creatinine 0.91 proBNP 30924 albumin 3.1 procalcitonin 0.05 Influenza type A, type B, RSV, COVID-19: Not detected EKG tracing personally reviewed by me-normal sinus rhythm. Some T wave changes. Chest x-ray film personally reviewed by me-venous prominence. Assessment plan: -Acute congestive heart failure exacerbation, from systolic dysfunction EF 40%: Clinical improvement IV Lasix 40 mg every 12. Fluid restriction 1800 cc a day. Strict I's and O's. -Bilateral pleural effusion right greater than left secondary to CHF IV Lasix -Mild to moderate mitral regurgitation -Essential hypertension Lisinopril 5 mg a day. Tenormin 25 mg a day. -Cognitive impairment. Aricept -Probable history of atrial fibrillation Xarelto -Mild protein calorie malnutrition Ensure -Primary osteoarthritis Tylenol as needed -Full code Discussed with patient daughter. CT scan of brain showing chronic changes. Repeat chest x-ray in the morning. Past Medical History Past Medical History: Asthma, CVA/TIA, Hyperlipidemia, Hypertension, Myocardial Infarction (ME) Additional Past Medical History / Comment(s): TIA-2012 R hand residual weakness Last Myocardial Infarction Date:: 2013 History of Any Multi-Drug Resistant Organisms: None Reported Past Surgical History: Cholecystectomy, Hernia Repair, Tonsillectomy Additional Past Surgical History / Comment(s): SUMANTH CATARACTS Past Anesthesia/Blood Transfusion Reactions: No Reported Reaction Past Psychological History: No Psychological Hx Reported Smoking Status: Never smoker Past Alcohol Use History: Rare Past Drug Use History: None Reported
[2023-10-19] MEDS: SPIRONOLACTONE 25 MG TAB PO SCH (14:11)
--- NOTE | 2023-10-19 15:55 | P.PN ---
Subjective Progress Note Date: 10/19/23 History of present illness: This is an 83-year-old male patient of Dr. Bell with past medical history of p eripheral arterial disease, hypertension, hyperlipidemia, chronic systolic heart failure, TIA. We have been asked to evaluate the patient for CHF. Patient presented to the emergency center due to difficulty in breathing, exertional dyspnea and lower extremity edema. Patient states he is feeling a little bit better at this time. He has been resumed on his home medications and started on IV Lasix 40 mg every 12 hours. Blood pressure 162/67, heart rate 67, pulse ox 92% on room air. Patient has a negative fluid balance of 1920 which does not appear to be accurate. EKG sinus rhythm no acute ST changes Chest x-ray: Correlate for heart failure with pulmonary vascular congestion. Small bilateral pleural effusions with adjacent atelectasis and/or consolidation. WBC 19.4, hemoglobin 16, platelet count 591. INR 1.3. Sodium 141, potassium 4.5, chloride 108, CO2 27, BUN 23 creatinine 0.97. Liver function test are normal. Troponin negative x 1. proBNP 26,900. Procalcitonin 0.05. Lactic acid 1.6. Urinalysis moderate blood, RBCs 43. Influenza A, influenza B, RSV, COVID-19 not detected. Home cardiac medications: Aspirin 162 mg daily, atenolol 25 mg daily, Lasix 20 mg daily, lisinopril 5 mg daily, potassium chloride 20 mEq daily, Xarelto 2.5 mg twice daily, rosuvastatin 5 mg at bedtime. Echocardiogram performed 06/26/2016 revealed EF 45 to 50%. Mild mitral regurgitation, trace tricuspid regurgitation Physical examination: Gen: This is an 83-year-old frail appearing male in no acute distress. VS: reviewed HEENT: Head is atraumatic, normocephalic. Pupils equal, round. Sclerae is anicteric. NECK: Supple. No JVD. LUNGS: Decreased air entry bilaterally. No intercostal retractions. HEART: Regular rate and rhythm. No murmur. ABDOMEN: Soft No tenderness. EXTREMITIES: 1+ bilateral pedal edema. No calf tenderness. NEUROLOGICAL: Patient is awake, alert and oriented x3. Assessment: Acute on chronic systolic heart failure, EF 40% and dilated LV cavity Hypertension Hyperlipidemia PAD History of TIA Hematuria on urinalysis. Leukocytosis Plan: Continue aspirin, atorvastatin, Xarelto 2.5 mg twice daily Continue beta-valeriano Change diuretic to torsemide 20 mg from tomorrow. Patient received 1 dose of IV Lasix today Start Aldactone 12.5 mg daily from today. Start lisinopril 5 mg daily Patient is currently hemodynamically stable. He is euvolemic. If patient's k idney function is stable tomorrow, and his WBC count is downtrending, he should be able to be discharged. If his WBC count persist to be high primary team should work for infectious etiologies. Patient is scheduled for an outpatient eye surgery for which she has been given clearance from cardiology. In view of risk low EF on echocardiogram, I would recommend him to follow-up with Dr. Rinaldi outpatient prior having eye surgery for a repeat cardiology perioperative evaluation Objective - Vital Signs Vital signs: Vital Signs Temp 97.8 F 10/19/23 14:00 Pulse 58 L 10/19/23 14:00 Resp 17 10/19/23 14:00 BP 135/68 10/19/23 14:00 Pulse Ox 93 L 10/19/23 14:00 FiO2 Intake & Output 10/18/23 10/19/23 10/19/23 18:59 06:59 18:59 Intake Total 300 120 Output Total 300 1000 600 Balance 0 -1000 -480 Weight 56.2 kg 56.2 kg Intake: Oral 300 120 Output: Urine 300 1000 600 Other: Voiding Method Toilet Urinal Urinal # Voids 150 - Labs CBC & Chem 7: 10/17/23 12:01 10/19/23 05:45 Labs: Abnormal Lab Results - Last 24 Hours (Table) 10/19/23 Range/Units 05:45 BUN 24 H (9-20) mg/dL
[2023-10-20 03:25] VITALS: PULSE 70
[2023-10-20 07:26] LABS: African American GFR (CKD) 72 (>60 ml/min/1.73 sqM); Anion Gap 1 mmol/L; Blood Urea Nitrogen 25 mg/dL (9-20); Calcium 8.7 mg/dL (8.4-10.2); Carbon Dioxide 31 mmol/L (22-30); Chloride 107 mmol/L (98-107); Glucose 104 mg/dL (74-99); Non-African American GFR(CKD) 63 (>60 ml/min/1.73 sqM); Sodium 139 mmol/L (137-145)
[2023-10-20 07:27] LABS: Potassium 4.8 mmol/L (3.5-5.1)
[2023-10-20 07:32] LABS: NT-Pro-B-Type Natriuretic Pept 8830 pg/mL
--- NOTE | 2023-10-20 07:39 | XR ---
EXAMINATION TYPE: XR chest 2V DATE OF EXAM: 10/20/2023 COMPARISON: 10/17/2023 HISTORY: 83-year-old male follow-up CHF TECHNIQUE: PA and lateral views FINDINGS: Heart mildly enlarged. Hyperinflation. Interstitial density is improving. Trace bilateral pleural eff usions and mild patchy bibasilar densities similar to slightly improving as well. IMPRESSION: COPD. Superimposed mild CHF with pulmonary vascular congestion which is improving from prior exam. Tr panfilo bilateral pleural effusions remain.
[2023-10-20 07:40] LABS: HGB 17.2 gm/dL (13.0-17.5); Hypochromasia Slight; MCH 30.6 pg (25.0-35.0); MCHC 31.2 g/dL (31.0-37.0); Platelet Count 870 k/uL (150-450); RBC 5.63 m/uL (4.30-5.90); RDW 15.5 % (11.5-15.5); WBC 23.3 k/uL (3.8-10.6)
[2023-10-20 07:41] LABS: HCT 55.2 % (39.0-53.0)
[2023-10-20 08:34] VITALS: BP 129/54; RESP 19; TEMP 98.1
[2023-10-20] MEDS: SPIRONOLACTONE 25 MG TAB PO SCH (09:11)
[2023-10-20] MEDS: TORSEMIDE 20 MG TAB PO SCH (09:11)
[2023-10-20] MEDS: ASPIRIN 81 MG PO SCH (09:12)
--- NOTE | 2023-10-20 17:03 | P.DS ---
Providers Date of admission: 10/17/23 16:01 Expected date of discharge: 10/20/23 Attending physician: Cesario Mabry Consults: 10/17/23 15:11 Consult Physician Stat Consulting Provider: Onel Flores Consult Reason/Comments: CHF Do you want consulting provider notified?: Yes Primary care physician: [facility] Hospital Course: Chief Complaint: Short of breath This is a very pleasant 83-year-old patient who follows with visiting physicians Henok Harvey. Chronic stable medical conditions include CAD with a previous MD, hypertension, hyperlipidemia asthma. Patient is ex-smoker. Lives by himself. Presents with 3 to 4 days of increasing shortness of breath lower extremity edema. Decreased appetite. No fever no chills. Uses 1 pillow at night. Has a slight congested cough. October 17: Breathing slightly better. Making good urine output. On IV Lasix. Eating fair. Discussed. 2D echo shows a EF of 40%. Change Tenormin to Lopressor. October 18: Good urine output. Remains on IV Lasix. Had a short episode of blurring of vision this morning. Resolved. No other focal neurological symptoms. Close to 3000 cc in negative fluid balance. CT scan of the brain done showed chronic old changes. Discussed with patient and daughter at the bedside. October 19: Patient doing well. Breathing felt much better. Discussed at length with the patient daughter at bedside. Patient follow-up with Dr. Bell. Fluid restriction to continue. Patient also seems to acute bronchitis. Will give a short course of doxycycline. Patient had elevated white count since June. Will have the patient follow-up with hematology outpatient Discussion and discharge planning more than 35 minutes Social history: Patient smoked for 12 years stopped smoking age of 29. Smoked half a pack a day. 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 Physical examination: VITAL SIGNS: 98.1, 70, 19, 129 x 54, 92% room air GENERAL: Comfortable decrease in muscle mass EYES: Pupils equal. Conjunctiva aditya l. HEENT: External appearance of nose and ears normal, oral cavity grossly normal. Decreased hearing NECK: JVD possibly raised; masses not palpable. HEART: First and second heart sounds are normal; edema present a. LUNGS: Respiratory rate normal; lungs clear. ABDOMEN: Soft, nontender, liver spleen not palpable, no masses palpable. PSYCH: Alert and oriented x3; mood and affect aditya l. MUSCULOSKELETAL:No Clubbing/cyanosis;muscles-grossly intact. OA INVESTIGATIONS, reviewed in the clinical context: October 19: White count 23.3 hemoglobin 17.2 platelets 370 potassium 4.8 creatinine 1.08 October 18: Potassium 4.[address] brain: Bilateral cerebral encephalomalacia: Chronic CT chest: Large right and moderate left pleural effusion. No airspace disease. Moderate coronary artery calcifications cardiomegaly. Splenomegaly. 2D echocardiogram: EF 40%. Severely increased left ventricular systolic volume. Mild to moderate MR. October 17: Potassium 4.5 creatinine 0.97 October 16: White count 19.4 hemoglobin 16 platelets 591 potassium 5.1 BUN 22 creatinine 0.91 proBNP 99682 albumin 3.1 procalcitonin 0.05 Influenza type A, type B, RSV, COVID-19: Not detected EKG tracing personally reviewed by me-normal sinus rhythm. Some T wave changes. Chest x-ray film personally reviewed by me-venous prominence. Assessment plan: -Acute congestive heart failure exacerbation, from systolic dysfunction EF 40%: Much improved t Was given IV Lasix. Discharged on Demadex. 20 mg a day. Aldactone 12.5 mg a day. Fluid restriction to 1000 cc a day. -Bilateral pleural effusion right greater than left secondary to CHF: Better Received IV Lasix -Mild to moderate mitral regurgitation -Acute bronchitis Short course of doxycycline -Essential hypertension Lisinopril 5 mg a day. Lopressor 25 mg twice daily -Cognitive impairment. Aricept -Probable history of atrial fibrillation Xarelto -Mild protein calorie malnutrition Ensure -Leukocytosis with some thrombocytosis Follow-up with hematology outpatient -Primary osteoarthritis Tylenol as needed -Full code Disposition: Home Past Medical History Past Medical History: Asthma, CVA/TIA, Hyperlipidemia, Hypertension, Myocardial Infarction (MD) Additional Past Medical History / Comment(s): TIA-2012 R hand residual weakness Last Myocardial Infarction Date:: 2013 History of Any Multi-Drug Resistant Organisms: None Reported Past Surgical History: Cholecystectomy, Hernia Repair, Tonsillectomy Additional Past Surgical History / Comment(s): SUMANTH CATARACTS Past Anesthesia/Blood Transfusion Reactions: No Reported Reaction Past Psychological History: No Psychological Hx Reported Smoking Status: Never smoker Past Alcohol Use History: Rare Past Drug Use History: None Reported Plan - Discharge Summary Discharge Rx Participant: Yes New Discharge Prescriptions: New Spironolactone [Aldactone] 12.5 mg PO DAILY #30 tab Torsemide [Demadex] 20 mg PO DAILY #30 tab Metoprolol Tartrate [Lopressor] 25 mg PO BID #60 tab Doxycycline [Vibramycin] 100 mg PO BID #10 capsule Continue Latanoprost [Xalatan 0.005%] 1 drop BOTH EYES BID Aspirin EC [Ecotrin Low Dose] 162 mg PO DAILY Rivaroxaban [Xarelto] 2.5 mg PO BID Donepezil [Aricept] 10 mg PO DAILY Rosuvastatin Calcium 5 mg PO HS Ferrous Sulfate [Iron] 325 mg PO DAILY lisinopriL [Zestril] 5 mg PO DAILY #30 tab Brimonidine Tartrate [Alphagan P 0.2% Ophth Soln] 1 drop BOTH EYES BID Potassium Chloride ER [K-Dur 20] 20 meq PO DAILY Discontinued atenoloL [Tenormin] 25 mg PO DAILY Furosemide [Lasix] 20 mg PO DAILY Loratadine-Pseudoeph 5-120 mg [Claritin-D 12 Hour] 1 tab PO DAILY Discharge Medication List Latanoprost [Xalatan 0.005%] 1 drop BOTH EYES BID 06/25/16 [History] Aspirin EC [Ecotrin Low Dose] 162 mg PO DAILY 07/08/21 [History] Donepezil [Aricept] 10 mg PO DAILY 07/08/21 [History] Rivaroxaban [Xarelto] 2.5 mg PO BID 07/08/21 [History] Ferrous Sulfate [Iron] 325 mg PO DAILY 06/29/22 [History] Rosuvastatin Calcium 5 mg PO HS 06/29/22 [History] lisinopriL [Zestril] 5 mg PO DAILY #30 tab 10/04/22 [Rx] Brimonidine Tartrate [Alphagan P 0.2% Ophth Soln] 1 drop BOTH EYES BID 10/17/23 [History] Potassium Chloride ER [K-Dur 20] 20 meq PO DAILY 10/17/23 [History] Doxycycline [Vibramycin] 100 mg PO BID #10 capsule 10/20/23 [Rx] Metoprolol Tartrate [Lopressor] 25 mg PO BID #60 tab 10/20/23 [Rx] Spironolactone [Aldactone] 12.5 mg PO DAILY #30 tab 10/20/23 [Rx] Torsemide [Demadex] 20 mg PO DAILY #30 tab 10/20/23 [Rx] Follow up Appointment(s)/Referral(s): Yonathan Bell MD [STAFF PHYSICIAN] - 1 Week (Office is closed at time of discharge. Please call for follow-up appointment.) Son José MD [STAFF PHYSICIAN] - 2 Weeks (Office is closed at time of discharge. Please call for elevated white count appointment.) Wes Whiting NPC [Primary Care Provider] - 1-2 days (Patient needs home care set up with [facility]. Discharged on a Saturday. Office was closed at time of discharge. Please call for follow-up appointment.) Patient Instructions/Handouts: Heart Failure (DC) Activity/Diet/Wound Care/Special Instructions: fluid restrict 2000 cc/day Discharge Disposition: HOME WITH HOME HEALTH SERVICES
== END 2023-10-20 14:07 | disposition home health service (06) | DRG 291 ==
LOC: EC 11:23 → 4SSUR 16:01
PROVIDERS: ADMIT Hospitalist; ATTEND Hospitalist
DX: I11.0 Hypertensive heart disease with heart failure (principal); I50.23 Acute on chronic systolic (congestive) heart failure; E44.1 Mild protein-calorie malnutrition; Z68.1 Body mass index [BMI] 19.9 or less, adult; I73.9 Peripheral vascular disease, unspecified; Z79.01 Long term (current) use of anticoagulants; I48.91 Unspecified atrial fibrillation; G31.84 Mild cognitive impairment of uncertain or unknown etiology; D75.839 Thrombocytosis, unspecified; I69.334 Monoplegia of upper limb following cerebral infarction affecting left non-dominant side; J20.9 Acute bronchitis, unspecified; E78.5 Hyperlipidemia, unspecified; I34.0 Nonrheumatic mitral (valve) insufficiency; J45.909 Unspecified asthma, uncomplicated; I25.10 Atherosclerotic heart disease of native coronary artery without angina pectoris; I25.2 Old myocardial infarction; R31.9 Hematuria, unspecified; M19.91 Primary osteoarthritis, unspecified site; F41.9 Anxiety disorder, unspecified; G47.00 Insomnia, unspecified; K59.00 Constipation, unspecified; Z79.82 Long term (current) use of aspirin; Z79.899 Other long term (current) drug therapy; Z87.891 Personal history of nicotine dependence; Z71.3 Dietary counseling and surveillance; Z88.5 Allergy status to narcotic agent; Z88.8 Allergy status to other drugs, medicaments and biological substances
CPT/HCPCS: 36415; 70450; 71046; 71260; 80048; 80053; 81001; 83605; 83880; 84145; 84484; 85025; 85027; 85610; 85730; 87636; 93005; 93306; 94760; 99285

== ENCOUNTER 2023-10-28 17:27 | Inpatient (IN) | payer MEDICARE ==
[2023-10-28 17:55] LABS: HGB 17.6 gm/dL (13.0-17.5); MCH 29.4 pg (25.0-35.0); MCHC 30.6 g/dL (31.0-37.0); MCV 95.9 fL (80.0-100.0); Mean Platelet Volume 9.6; Platelet Count 936 k/uL (150-450); RDW 15.5 % (11.5-15.5); WBC 25.6 k/uL (3.8-10.6)
[2023-10-28 18:06] LABS: ALT 21 U/L (4-49); AST 41 U/L (17-59); African American GFR (CKD) 28 (>60 ml/min/1.73 sqM); Albumin 3.9 g/dL (3.5-5.0); Alkaline Phosphatase 101 U/L (38-126); Anion Gap 8 mmol/L; Blood Urea Nitrogen 49 mg/dL (9-20); Calcium 9.2 mg/dL (8.4-10.2); Carbon Dioxide 30 mmol/L (22-30); Chloride 97 mmol/L (98-107); Glucose 93 mg/dL (74-99); Magnesium 2.2 mg/dL (1.6-2.3); Non-African American GFR(CKD) 25 (>60 ml/min/1.73 sqM); Phosphorus 5.5 mg/dL (2.5-4.5); Sodium 135 mmol/L (137-145); Total Bilirubin 1.1 mg/dL (0.2-1.3); Total Protein 6.9 g/dL (6.3-8.2)
--- NOTE | 2023-10-28 18:22 | ED ---
Recheck HPI - General Chief Complaint: Recheck/Abnormal Lab/Rx Stated Complaint: High Potassium Time Seen by Provider: 10/28/23 17:29 Source: patient, RN notes reviewed, old records reviewed Mode of arrival: EMS Limitations: no limitations - History of Present Illness Initial Comments: This is a 83-year-old male to the ER for evaluation. Patient presents today for evaluation regards to abnormal outpatient lab values, patient had abnormal potassium level with multiple recent medication changes specially on last hospital admission. Patient has been having nausea vomiting for around a week and has not taken his medications in around a week. Patient is a poor historian secondary to underlying clinical condition as well as dementia. Patient is cu rrently relatively asymptomatic does admit to some weakness MD Complaint: abnormal lab (Elevated potassium level) -: unknown Returns Today for: Called Because of Abnormal Lab/Test Symptoms Since Prior Visit: no new symptoms Context: called for abnormal lab result Associated Symptoms: none Treatments Prior to Arrival: other (0) - Related Data Home Medications Medication Instructions Recorded Confirmed Latanoprost [Xalatan 0.005%] 1 drop BOTH EYES BID 06/25/16 10/28/23 Aspirin EC [Ecotrin Low Dose] 162 mg PO DAILY 07/08/21 10/28/23 Donepezil [Aricept] 10 mg PO DAILY 07/08/21 10/28/23 Rivaroxaban [Xarelto] 2.5 mg PO BID 07/08/21 10/28/23 Rosuvastatin Calcium 5 mg PO HS 06/29/22 10/28/23 Brimonidine Tartrate [Alphagan P 1 drop BOTH EYES BID 10/17/23 10/28/23 0.2% [facility]] Ondansetron [Zofran] 4 mg PO AC-BRKFST 10/28/23 10/28/23 Previous Rx's Medication Instructions Recorded Spironolactone [Aldactone] 12.5 mg PO DAILY #30 tab 10/20/23 Furosemide [Lasix] 20 mg PO DAILY #30 tab 10/30/23 Pantoprazole Sodium [Protonix] 40 mg PO DAILY #30 tab 10/30/23 Allergies Allergy/AdvReac Type Severity Reaction Status Date / Time codeine AdvReac Nausea & Verified 10/28/23 19:43 Vomiting furosemide [From Lasix] AdvReac Nausea & Verified 10/28/23 19:43 Vomiting Review of Systems ROS Statement: Those systems with pertinent positive or pertinent negative responses have been documented in the HPI. ROS Other: All systems not noted in ROS Statement are negative. Past Medical History Past Medical History: Asthma, CVA/TIA, Hyperlipidemia, Hypertension, Myocardial Infarction ([place]) Additional Past Medical History / Comment(s): TIA-2013 R hand residual weakness Last Myocardial Infarction Date:: 2013 History of Any Multi-Drug Resistant Organisms: None Reported Past Surgical History: Cholecystectomy, Hernia Repair, Tonsillectomy Additional Past Surgical History / Comment(s): SUMANTH CATARACTS Past Anesthesia/Blood Transfusion Reactions: No Reported Reaction Past Psychological History: No Psychological Hx Reported Smoking Status: Never smoker Past Alcohol Use History: Rare Past Drug Use History: None Reported - Past Family History Mother Family Medical History: Cancer Father Family Medical History: Cancer General Exam Limitations: no limitations General appearance: alert, in no apparent distress Head exam: Present: atraumatic, normocephalic, normal inspection Eye exam: Present: normal appearance, PERRL, EOMI. Absent: scleral icterus, conjunctival injection, periorbital swelling ENT exam: Present: normal exam, mucous membranes moist Neck exam: Present: normal inspection. Absent: tenderness, meningismus, lymphadenopathy Respiratory exam: Present: normal lung sounds bilaterally. Absent: respiratory distress, wheezes, rales, rhonchi, stridor Cardiovascular Exam: Present: regular rate, normal rhythm, normal heart sounds. Absent: systolic murmur, diastolic murmur, rubs, gallop, clicks GI/Abdominal exam: Present: soft, normal bowel sounds. Absent: distended, tenderness, guarding, rebound, rigid Extremities exam: Present: normal inspection, full ROM, normal capillary refill. Absent: tenderness, pedal edema, joint swelling, calf tenderness Back exam: Present: normal inspection Neurological exam: Present: alert, oriented X3, CN II-XII intact Psychiatric exam: Present: normal affect, normal mood Skin exam: Present: warm, dry, intact, normal color. Absent: rash Course Vital Signs 10/28/23 10/28/23 10/28/23 17:30 19:02 20:30 Temperature 98.6 F Pulse Rate 85 77 71 Respiratory 20 18 18 Rate Blood Pressure 155/85 156/73 126/79 O2 Sat by Pulse 95 96 96 Oximetry 10/28/23 10/28/23 10/29/23 20:57 23:00 00:35 Temperature Pulse Rate 79 78 78 Respiratory 20 18 19 Rate Blood Pressure 138/66 109/63 133/65 O2 Sat by Pulse 94 L 94 L 94 L Oximetry 10/29/23 10/29/23 10/29/23 02:06 03:27 06:15 Temperature Pulse Rate 77 79 77 Respiratory 17 17 17 Rate Blood Pressure 136/70 146/66 O2 Sat by Pulse 96 98 Oximetry 10/29/23 11:34 Temperature Pulse Rate 80 Respiratory 18 Rate Blood Pressure 142/64 O2 Sat by Pulse 97 Oximetry - Reevaluation(s) Reevaluation #1: 10/28/23 21:25 Medical records reviewed Reevaluation #2: 10/28/23 21:25 Patient symptoms unchanged Reevaluation #3: 10/28/23 21:25 Patient informed of results and questions answered Reevaluation #4: Was pt. sent in by a medical professional or institution (, PA, GANG PUSHER, urgent care, hospital, or snf...) When possible be specific @ -no Did you speak to anyone other than the patient for history (EMS, parent, family, police, friend...)? What history was obtained from this source @ -no Did you review nursing and triage notes (agree or disagree)? Why? @ -agree Are old charts reviewed (outside hosp., previous admission, EMS record, old EKG, old radiological studies, urgent care reports/EKG's, snf records)? Report findings @ -yes Differential Diagnosis (chest pain, altered mental status, abdominal pain women, abdominal pain men, vaginal bleeding, weakness, fever, dyspnea, syncope, headache, dizziness, GI bleed, back pain, seizure, CVA, palpatations, mental health, musculoskeletal)? @ -prior EKG interpreted by me (3pts min.). @ -yes X-rays interpreted by me (1pt min.). @ -yes negative for acute disease CT interpreted by me (1pt min.). @ -no U/S interpreted by me (1pt. min.). @ -no What testing was considered but not performed or refused? (CT, X-rays, U/S, labs)? Why? @ -none What meds were considered but not given or refused? Why? @ -none Did you discuss the management of the patient with other professionals (professionals i.e. , PA, GANG PUSHER, lab, RT, psych nurse, licensed social worker, vitamin manager, teacher, budget officer, pillowcase cutter)? Give summary @ -no Was smoking cessation discussed for >3mins.? @ -no Was critical care preformed (if so, how long)? @ -no Were there social determinants of health that impacted care today? How? (Homelessness, low income, unemployed, alcoholism, drug addiction, transportation, low edu. Level, literacy, decrease access to med. care, correction, rehab)? @ -none Was there de-escalation of care discussed even if they declined (Discuss DNR or withdrawal of care, Hospice)? DNR status @ -no What co-morbidities impacted this encounter? (DM, HTN, Smoking, COPD, CAD, Cancer, CVA, ARF, Chemo, Hep., AIDS, mental health diagnosis, sleep apnea, morbid obesity)? @ -none Was patient admitted / discharged? Hospital course, mention meds given and route, prescriptions, significant lab abnormalities, going to OR and other pertinent info. @ - 83 male to the ER for evaluation today. [facility] elevated potassium through outpatient lab values. Patient presents today and is found to have significant elevated potassium here in the ER with new renal failure. Patient will be admitted for hydration and monitoring of potassium level Admitted Undiagnosed new problem with uncertain prognosis? @ -no Drug Therapy requiring intensive monitoring for toxicity (Heparin, Nitro, Insulin, Cardizem)? @ -no Were any procedures done? @ -no Diagnosis/symptom? @ -Weakness, hyperkalemia, renal failure Acute, or Chronic, or Acute on Chronic? @ -Acute Uncomplicated (without systemic symptoms) or Complicated (systemic symptoms)? @ -Complicated Side effects of treatment? @ -no Exacerbation, Progression, or Severe Exacerbation? @ -exacerbation Poses a threat to life or bodily function? How? (Chest pain, USA, NE, pneumonia, PE, COPD, DKA, ARF, appy, cholecystitis, CVA, Diverticulitis, Homicidal, Suicidal, threat to staff... and all critical care pts) @ -yes abnormal electrolytes Reevaluation #5: Differential Weakness: Hypoglycemia, shock, sepsis, hyponatremia, anemia, infection, NE, ETOH, adverse medicine reaction, overdose, stroke, this is not meant to be an all-inclusive list. - Consultations Consultation #1: Kirill early who agrees to admit this patient Medical Decision Making - Medical Decision Making 83 male to the ER for evaluation today. [facility] for evaluation of elevated potassium through outpatient lab values. Patient presents today and is found to have significant elevated potassium here in the ER with new renal failure. Patient will be admitted for hydration and monitoring of potassium level - Lab Data Result diagrams: 10/30/23 11:47 10/30/23 08:43 Lab Results 10/28/23 10/28/23 Range/Units 17:41 17:41 WBC 25.6 H (3.8-10.6) k/uL RBC 6.00 H (4.30-5.90) m/uL Hgb 17.6 H (13.0-17.5) gm/dL Hct 57.5 H* (39.0-53.0) % MCV 95.9 (80.0-100.0) fL MCH 29.4 (25.0-35.0) pg MCHC 30.6 L (31.0-37.0) g/dL RDW 15.5 (11.5-15.5) % Plt Count 936 H (150-450) k/uL MPV 9.6 Neutrophils % (Manual) 83 % Lymphocytes % (Manual) 10 % Monocytes % (Manual) 6 % Eosinophils % (Manual) 1 % Neutrophils # (Manual) 21.25 H (1.3-7.7) k/uL Lymphocytes # (Manual) 2.56 (1.0-4.8) k/uL Monocytes # (Manual) 1.54 H (0-1.0) k/uL Eosinophils # (Manual) 0.26 (0-0.7) k/uL Nucleated RBCs 0 (0-0) /100 WBC Manual Slide Review Performed Sodium 135 L (137-145) mmol/L Potassium 6.0 H (3.5-5.1) mmol/L Chloride 97 L (98-107) mmol/L Carbon Dioxide 30 (22-30) mmol/L Anion Gap 8 mmol/L BUN 49 H (9-20) mg/dL Creatinine 2.35 H (0.66-1.25) mg/dL Est GFR (CKD-EPI)AfAm 28 (>60 ml/min/1.73 sqM) Est GFR (CKD-EPI)NonAf 25 (>60 ml/min/1.73 sqM) Glucose 93 (74-99) mg/dL Calcium 9.2 (8.4-10.2) mg/dL Phosphorus 5.5 H (2.5-4.5) mg/dL Magnesium 2.2 (1.6-2.3) mg/dL Total Bilirubin 1.1 (0.2-1.3) mg/dL AST 41 (17-59) U/L ALT 21 (4-49) U/L Alkaline Phosphatase 101 (38-126) U/L Total Protein 6.9 (6.3-8.2) g/dL Albumin 3.9 (3.5-5.0) g/dL - EKG Data -: EKG Interpreted by Me (EG is sinus 78 NE 187 QRS 100 QTc 432) - Radiology Data Radiology results: report reviewed (Chest x-ray is negative for acute disease), image reviewed Critical Care Time Critical Care Time: Yes Total Critical Care Time: 31 Disposition Clinical Impression: History of dementia, Weakness, RYAN (acute kidney injury), Leukocytosis, Hyperkalemia, Bradycardia Disposition: ADMITTED IP TO THIS HOSP Condition: Fair Is patient prescribed a controlled substance at d/c from ED?: No Time of Disposition: 20:20
[2023-10-28] MEDS: SODIUM CHLORIDE 0.9% 1,000 ML IV STA ×2 (18:33→20:31)
[2023-10-28] MEDS: SODIUM CHLORIDE 0.9% 500 ML 500 ML IV STA (18:33)
[2023-10-28 18:52] LABS: Eosinophils # (M) 0.26 k/uL (0-0.7); Lymphocytes # (M) 2.56 k/uL (1.0-4.8); Monocytes # (M) 1.54 k/uL (0-1.0); Neutrophils # (M) 21.25 k/uL (1.3-7.7); Neutrophils % (M) 83 %; Nucleated Red Blood Cells 0 /100 WBC (0-0); Total Cells Counted 100
[2023-10-28 19:01] LABS: HCT 57.5 % (39.0-53.0)
[2023-10-28] MEDS ORDERED: ONDANSETRON 4 MG/2 ML VIAL IVP PRN (20:27)
[2023-10-28] MEDS ORDERED: NALOXONE 0.4 MG/ML 1 ML VIAL IV PRN (20:27)
[2023-10-28] MEDS ORDERED: HYDROmorphone 1 MG/ML 1 ML SYRINGE IVP PRN (20:27)
[2023-10-28] MEDS: FUROSEMIDE 10 MG/ML 10 ML VIAL IV STA (20:58)
[2023-10-28] MEDS: SODIUM BICARB 8.4% 50 ML SYR (1 MEQ/ML) IV STA (21:04)
[2023-10-28] MEDS: DEXTROSE 50% SYRINGE 50 ML IVP STA (21:06)
[2023-10-28] MEDS: INSULIN REGULAR 100 UNIT/ML VIAL (IV) IV ONE (21:07)
[2023-10-28] MEDS: SODIUM ZIRCONIUM CYCLOSILICATE 10 GM PACKET PO ONE (21:08)
[2023-10-28] MEDS: SODIUM CHLORIDE 0.9% 1,000 ML IV SCH (21:54)
--- NOTE | 2023-10-29 05:30 | P.HPIM ---
History of Present Illness H&P Date: 10/28/23 Chief Complaint: Abnormal blood work 83-year-old male with multiple comorbidities he was recently hospitalized for CHF exacerbation was discharged home about 10 days ago lives at [facility] however upon regular follow-up he was found to have high white count for which she was sent into our hospital for further evaluation. Patient has poor insight of his overall medical conditions. He is currently denying any fevers chills denies any cough denies any chest pain or trouble breathing denies any nausea vomiting abdominal pain denies any changes in bowel or urinary habit denies any GI bleeding Blood work in the ED revealed acute kidney injury with high potassium level p atient was admitted for further care, CBC shows hide white count and thrombocytosis and elevated hemoglobin which is not new Patient denies any tobacco smoking illicit drugs or heavy alcohol Patient does not use home oxygen. review of systems Pertinent positives as noted in HPI. All other systems were reviewed and are negative on exam Constitutional: No acute distress, conversant, pleasant Eyes: Anicteric sclerae, moist conjunctiva, Pupils equal round reactive to light ENMT: NC/AT Oropharynx clear, no erythema, or exudates Neck: Supple, no masses, or JVD No carotid bruits No thyromegaly Lungs: Decreased breath sounds at lung bases Clear to percussion Normal respiratory effort, no accessory muscle use Cardiovascular: Heart regular in rate and rhythm, No murmurs, gallops, or rubs No peripheral edema Abdominal: Soft Nontender, no guarding, rebound or rigidity Abdomen moving with respiration Normoactive bowel sounds Extremities: No digital cyanosis No clubbing Pedal pulses intact and symmetrical Radial pulses intact and symmetrical No calf tenderness Psychiatric: Alert and oriented to person, place and time Neuro Muscles Strength 4/5 in all 4 extremities Sensation to light touch grossly present throughout Cranial nerves II-XII grossly intact Past Medical History Past Medical History: Asthma, CVA/TIA, Hyperlipidemia, Hypertension, Myocardial Infarction ([place]) Additional Past Medical History / Comment(s): TIA-2012 R hand residual weakness Last Myocardial Infarction Date:: 2013 History of Any Multi-Drug Resistant Organisms: None Reported Past Surgical History: Cholecystectomy, Hernia Repair, Tonsillectomy Additional Past Surgical History / Comment(s): SUMANTH CATARACTS Past Anesthesia/Blood Transfusion Reactions: No Reported Reaction Past Psychological History: No Psychological Hx Reported Smoking Status: Never smoker Past Alcohol Use History: Rare Past Drug Use History: None Reported - Past Family History Mother Family Medical History: Cancer Father Family Medical History: Cancer Medications and Allergies Home Medications Medication Instructions Recorded Confirmed Type Latanoprost [Xalatan 0.005%] 1 drop BOTH EYES BID 06/25/16 10/28/23 History Aspirin EC [Ecotrin Low Dose] 162 mg PO DAILY 07/08/21 10/28/23 History Donepezil [Aricept] 10 mg PO DAILY 07/08/21 10/28/23 History Rivaroxaban [Xarelto] 2.5 mg PO BID 07/08/21 10/28/23 History Ferrous Sulfate [Iron] 325 mg PO DAILY 06/29/22 10/28/23 History Rosuvastatin Calcium 5 mg PO HS 06/29/22 10/28/23 History Brimonidine Tartrate [Alphagan P 1 drop BOTH EYES BID 10/17/23 10/28/23 History 0.2% Ophth Soln] Potassium Chloride ER [K-Dur 20] 20 meq PO DAILY 10/17/23 10/28/23 History Spironolactone [Aldactone] 12.5 mg PO DAILY #30 tab 10/20/23 10/28/23 Rx Torsemide [Demadex] 20 mg PO DAILY #30 tab 10/20/23 10/28/23 Rx Ondansetron [Zofran] 4 mg PO AC-BRKFST 10/28/23 10/28/23 History lisinopriL [Zestril] 10 mg PO DAILY 10/28/23 10/28/23 History Allergies Allergy/AdvReac Type Severity Reaction Status Date / Time codeine AdvReac Nausea & Verified 10/28/23 19:43 Vomiting furosemide [From Lasix] AdvReac Nausea & Verified 10/28/23 19:43 Vomiting Physical Exam Vitals: Vital Signs Temp Pulse Resp BP Pulse Ox 10/28/23 20:30 71 18 126/79 96 10/28/23 19:02 77 18 156/73 96 10/28/23 17:30 98.6 F 85 20 155/85 95 Intake and Output 10/28/23 10/28/23 10/28/23 06:59 14:59 22:59 Other: Weight 55.792 kg Results CBC & Chem 7: 10/28/23 17:41 10/28/23 17:41 Labs: Abnormal Lab Results - Last 24 Hours (Table) 10/28/23 10/28/23 Range/Units 17:41 17:41 WBC 25.6 H (3.8-10.6) k/uL RBC 6.00 H (4.30-5.90) m/uL Hgb 17.6 H (13.0-17.5) gm/dL Hct 57.5 H* (39.0-53.0) % MCHC 30.6 L (31.0-37.0) g/dL Plt Count 936 H (150-450) k/uL Neutrophils # (Manual) 21.25 H (1.3-7.7) k/uL Monocytes # (Manual) 1.54 H (0-1.0) k/uL Sodium 135 L (137-145) mmol/L Potassium 6.0 H (3.5-5.1) mmol/L Chloride 97 L (98-107) mmol/L BUN 49 H (9-20) mg/dL Creatinine 2.35 H (0.66-1.25) mg/dL Phosphorus 5.5 H (2.5-4.5) mg/dL Assessment and Plan Assessment: 83-year-old male with congestive heart failure left ventricular ejection fract ion 40%, hypertension, A-fib, patient coming in for abnormal blood work upon follow-up posthospital stay for acute CHF exacerbation found to have elevated white count I discussed case with ED doctor and accepted the admission for acute kidney injury with hyperkalemia with anticipated length of stay less than 2 midnights Acute kidney injury most likely secondary to prerenal ATN with hyperkalemia Hold potassium oral supplementation Hold lisinopril and diuretics spironolactone and torsemide Gentle IV fluid hydration Monitor renal function Monitor urine output Leukocytosis thrombocytosis and polycythemia Hematology consultation No evidence of acute infectious process at this time Systolic CHF chronic in nature left ventricular ejection fraction 40% Gentle IV fluid hydration 75 cc/h secondary to acute kidney injury Diuretics on hold right now secondary to acute kidney injury Patient seems to be dry at this point Cardiac monitoring Questionable history of A-fib Continue Xarelto Full code DVT prophylaxis on Xarelto for A-fib
--- NOTE | 2023-10-29 08:24 | XR ---
EXAMINATION TYPE: XR chest 1V portable DATE OF EXAM: 10/29/2023 COMPARISON: 10/20/2023 HISTORY: CHF TECHNIQUE: Single frontal view of the chest is obtained. FINDINGS: Heart is enlarged. Surgical clips in the upper abdomen. Mild prominence of the paratrachea l stripe may be related to ectatic vasculature. Underlying emphysema. Atherosclerotic change aorta. N o overt failure or consolidative pneumonia. IMPRESSION: No acute process.
[2023-10-29 08:29] LABS: ALT 18 U/L (4-49); AST 33 U/L (17-59); African American GFR (CKD) 37 (>60 ml/min/1.73 sqM); Albumin 3.2 g/dL (3.5-5.0); Alkaline Phosphatase 90 U/L (38-126); Anion Gap 8 mmol/L; Blood Urea Nitrogen 44 mg/dL (9-20); Calcium 8.7 mg/dL (8.4-10.2); Carbon Dioxide 31 mmol/L (22-30); Chloride 99 mmol/L (98-107); Glucose 91 mg/dL (74-99); Magnesium 2.1 mg/dL (1.6-2.3); Non-African American GFR(CKD) 32 (>60 ml/min/1.73 sqM); Phosphorus 4.6 mg/dL (2.5-4.5); Sodium 138 mmol/L (137-145); Total Protein 6.1 g/dL (6.3-8.2)
[2023-10-29] MEDS: DONEPEZIL 10 MG TAB PO SCH (08:33)
[2023-10-29] MEDS: ASPIRIN 81 MG PO SCH (08:33)
[2023-10-29] MEDS: RIVAROXABAN 2.5 MG TABLET PO SCH (08:34)
[2023-10-29] MEDS: PANTOPRAZOLE 40 MG/10 ML VIAL IV SCH (08:35)
[2023-10-29 09:21] LABS: Basophils # (A) 0.2 k/uL (0-0.2); Basophils % (A) 1 %; Eosinophils # (A) 0.5 k/uL (0-0.7); Eosinophils % (A) 2 %; HCT 54.7 % (39.0-53.0); HGB 16.7 gm/dL (13.0-17.5); Lymphocytes # (A) 1.5 k/uL (1.0-4.8); Lymphocytes % (A) 7 %; MCH 29.6 pg (25.0-35.0); MCHC 30.5 g/dL (31.0-37.0); Mean Platelet Volume 9.3; Monocytes # (A) 1.1 k/uL (0-1.0); Monocytes % (A) 5 %; Neutrophils # (A) 18.3 k/uL (1.3-7.7); Neutrophils % (A) 84 %; Platelet Count 655 k/uL (150-450); RBC 5.64 m/uL (4.30-5.90); RDW 15.6 % (11.5-15.5); WBC 21.8 k/uL (3.8-10.6)
[2023-10-29 12:13] LABS: Appearance,Urine Clear (Clear); Bilirubin,Urine Negative (Negative); Blood,Urine Negative (Negative); Color,Urine Light Yellow; Glucose,Urine (UA) Negative (Negative); Ketones,Urine Negative (Negative); Leukocyte Esterase,Urine Negative (Negative); Nitrite,Urine Negative (Negative); PH, Urine 5.5 (5.0-8.0); Protein,Urine Negative (Negative); Specific Gravity,Urine 1.011 (1.001-1.035); Urobilinogen,Urine <2.0 mg/dL (<2.0)
--- NOTE | 2023-10-29 12:13 | P.NPCON ---
History of Present Illness - Reason for Consult hyperkalemia - History of Present Illness Patient is an 83-year-old male with history of CHF who was recently discharged from the hospital after admission for volume overload. Patient is admitted today from [facility] due to abnormal labs. Potassium was 6 and white count was elevated at 25.6. Noted to be on lisinopril, torsemide, Aldactone and potassium supplementation from recent discharge. He denies any urinary symptoms. Patient is voiding Blood pressure is not low. Repeat potassium is down to 5.0. Serum creatinine decreased to 1.8 from 2.3 on admission. Previous creatinine 1.0 on 10/20/2023. Currently receiving IV fluids. Review of Systems As per HPI Past Medical History Past Medical History: Asthma, CVA/TIA, Hyperlipidemia, Hypertension, Myocardial Infarction ([place]) Additional Past Medical History / Comment(s): TIA-2012 R hand residual weakness Last Myocardial Infarction Date:: 2013 History of Any Multi-Drug Resistant Organisms: None Reported Past Surgical History: Cholecystectomy, Hernia Repair, Tonsillectomy Additional Past Surgical History / Comment(s): SUMANTH CATARACTS Past Anesthesia/Blood Transfusion Reactions: No Reported Reaction Past Psychological History: No Psychological Hx Reported Smoking Status: Never smoker Past Alcohol Use History: Rare Past Drug Use History: None Reported - Past Family History Mother Family Medical History: Cancer Father Family Medical History: Cancer Medications and Allergies Home Medications Medication Instructions Recorded Confirmed Type Latanoprost [Xalatan 0.005%] 1 drop BOTH EYES BID 06/25/16 10/28/23 History Aspirin EC [Ecotrin Low Dose] 162 mg PO DAILY 07/08/21 10/28/23 History Donepezil [Aricept] 10 mg PO DAILY 07/08/21 10/28/23 History Rivaroxaban [Xarelto] 2.5 mg PO BID 07/08/21 10/28/23 History Ferrous Sulfate [Iron] 325 mg PO DAILY 06/29/22 10/28/23 History Rosuvastatin Calcium 5 mg PO HS 06/29/22 10/28/23 History Brimonidine Tartrate [Alphagan P 1 drop BOTH EYES BID 10/17/23 10/28/23 History 0.2% Ophth Soln] Potassium Chloride ER [K-Dur 20] 20 meq PO DAILY 10/17/23 10/28/23 History Spironolactone [Aldactone] 12.5 mg PO DAILY #30 tab 10/20/23 10/28/23 Rx Torsemide [Demadex] 20 mg PO DAILY #30 tab 10/20/23 10/28/23 Rx Ondansetron [Zofran] 4 mg PO AC-BRKFST 10/28/23 10/28/23 History lisinopriL [Zestril] 10 mg PO DAILY 10/28/23 10/28/23 History Allergies Allergy/AdvReac Type Severity Reaction Status Date / Time codeine AdvReac Nausea & Verified 10/28/23 19:43 Vomiting furosemide [From Lasix] AdvReac Nausea & Verified 10/28/23 19:43 Vomiting Physical Exam Vitals: Vital Signs Temp Pulse Resp BP Pulse Ox 10/29/23 11:34 80 18 142/64 97 10/29/23 06:15 77 17 146/66 98 10/29/23 03:27 79 17 10/29/23 02:06 77 17 136/70 96 10/29/23 00:35 78 19 133/65 94 L 10/28/23 23:00 78 18 109/63 94 L 10/28/23 20:57 79 20 138/66 94 L 10/28/23 20:30 71 18 126/79 96 10/28/23 19:02 77 18 156/73 96 10/28/23 17:30 98.6 F 85 20 155/85 95 Intake and Output 10/28/23 10/29/23 10/29/23 22:59 06:59 14:59 Intake Total 4 Balance 4 Intake: Oral 4 Other: Weight 55.792 kg Patient is awake, comfortable, no acute distress Examination of the heart S1 and S2 Examination of the lungs bilateral breath sounds are heard Abdomen is soft nontender Examination of lower extremities shows no evidence of edema BREAKER MECH[employer]IC exam grossly intact Results - Lab Results Most recent lab results Calcium 8.7 mg/dL (8.4-10.2) 10/29/23 07:57 Phosphorus 4.6 mg/dL (2.5-4.5) H 10/29/23 07:57 Magnesium 2.1 mg/dL (1.6-2.3) 10/29/23 07:57 10/29/23 07:57 10/29/23 07:57 Assessment and Plan Assessment: 1. Acute kidney injury prerenal, improved with IV hydration. No documented hypotension. Hold KOURTNEY inhibitor's for now and we can resume low-dose KOURTNEY inhibitor's as outpatient. 2. Hyperkalemia associated with acute kidney injury. Currently off of potassium supplementation and lisinopril. Rule out urine retention. 3. History of CHF status post recent admission for volume overload 4. Cardiomyopathy with EF of 40% 5. Chronic A. fib with controlled ventricular response 6. Elevated white count along with elevated platelets and hemoglobin. There is a component of hemoconcentration. No suggestion of active infection Plan: Continue IV fluids Continue to hold KOURTNEY inhibitor's and diuretics DC IV fluids in a.m. to avoid volume overload. Check bladder scan rule out urine retention. Thank you for the consultation. We will continue to follow the patient with you during his hospitalization.
--- NOTE | 2023-10-29 14:37 | P.PN ---
Subjective Progress Note Date: 10/29/23 Patient is a 83-year-old male with recent hospitalization for congestive heart failure with ejection fraction of 40% recently started on Aldactone and torsemide discharged on 10/20/2023, hypertension, dyslipidemia, coronary artery disease, and multiple other comorbid conditions who presented to the emergency department due to abnormal outpatient labs. He was found to have an elevated potassium level. On arrival to the emergency department his vitals were within normal limits. Laboratory analysis was remarkable for white blood cell count of 25.6, hemoglobin 17.6, hematocrit 57.5, sodium 135, potassium 6, BUN 49, creatinine 2.35, and potassium of 5.5. In the emergency department he was s tarted on normal saline and received 2 L bolus and then was started on 130 cc/h. He received sodium bicarb, insulin/dextrose, Lasix, and Lokelma. He was admitted for further monitoring. Patient seen and examined at bedside. He denies any chest pain or shortness of breath. He denies any lower extremity edema. He denies any weakness. He is overall feeling well. He reports that he stays at [facility] and has some services but does not have medication monitoring. He follows with visiting physicians and has a home health care nurse and physical therapy. Vital signs reviewed General: Nontoxic, no distress, appears at stated age Cardiovascular: S1S2 reg, no murmur Lungs: CTA bilateral, no rhonchi, no rales, no accessory muscle use Abdominal: Soft, nontender to palpation, no guarding Ext: No gross muscle atrophy, no edema b/l lower extremities, no contractures Neuro: CN II-XI grossly intact, no focal neuro deficits Psych: Alert, oriented, appropriate affect Assessment/Plan: Acute kidney injury with hyperkalemia -Hold Aldactone, lisinopril, Demadex, and potassium -Case discussed with nephrology. Will continue with normal saline at 75 cc/h -Follow fluid status closely -Repeat basic metabolic profile in a.m. Leukocytosis without obvious source of infection. Thrombocytosis -Chest x-ray and urinalysis negative -Persistent since September 2022. -Concerns for underlying hematologic process. Consult hematology -Follow CBC -Follow fever profile Compensated systolic congestive heart failure, ejection fraction 4 to 40% -Hold lisinopril, torsemide, Aldactone, potassium -Patient is not chronically on a beta-valeriano -Monitor fluid status closely -Xarelto 2.5 mg twice daily Imaging: None new Data Review: Labs reviewed from today include CBC and basic metabolic profile which are remarkable for white blood cell count 21.8, platelets 655, BUN 44, creatinine 1.88 DVT prophylaxis: Xarelto Anticipated discharge date: Pending clinical course Anticipated discharge place: Pending clinical course This dictation was prepared using [employer] voice recognition software. Though every attempt is made to correct errors during dictation some may still exist. Objective - Vital Signs Vital signs: Vital Signs Temp 97.5 F L 10/29/23 12:55 Pulse 61 10/29/23 12:55 Resp 16 10/29/23 12:55 BP 136/62 10/29/23 12:55 Pulse Ox 98 10/29/23 12:55 FiO2 Intake & Output 10/28/23 10/29/23 10/29/23 18:59 06:59 18:59 Intake Total 4 Output Total 240 Balance -236 Weight 55.792 kg 55.792 kg Intake: Oral 4 Output: Urine 240 Other: Voiding Method Urinal - Labs CBC & Chem 7: 10/29/23 07:57 10/29/23 07:57 Labs: Abnormal Lab Results - Last 24 Hours (Table) 10/28/23 10/28/23 10/29/23 Range/Units 17:41 17:41 07:57 WBC 25.6 H 21.8 H (3.8-10.6) k/uL RBC 6.00 H (4.30-5.90) m/uL Hgb 17.6 H (13.0-17.5) gm/dL Hct 57.5 H* 54.7 H (39.0-53.0) % MCHC 30.6 L 30.5 L (31.0-37.0) g/dL RDW 15.6 H (11.5-15.5) % Plt Count 936 H 655 H (150-450) k/uL Neutrophils # 18.3 H (1.3-7.7) k/uL Neutrophils # (Manual) 21.25 H (1.3-7.7) k/uL Monocytes # 1.1 H (0-1.0) k/uL Monocytes # (Manual) 1.54 H (0-1.0) k/uL Sodium 135 L (137-145) mmol/L Potassium 6.0 H (3.5-5.1) mmol/L Chloride 97 L (98-107) mmol/L Carbon Dioxide (22-30) mmol/L BUN 49 H (9-20) mg/dL Creatinine 2.35 H (0.66-1.25) mg/dL Phosphorus 5.5 H (2.5-4.5) mg/dL Total Protein (6.3-8.2) g/dL Albumin (3.5-5.0) g/dL 10/29/23 Range/Units 07:57 WBC (3.8-10.6) k/uL RBC (4.30-5.90) m/uL Hgb (13.0-17.5) gm/dL Hct (39.0-53.0) % MCHC (31.0-37.0) g/dL RDW (11.5-15.5) % Plt Count (150-450) k/uL Neutrophils # (1.3-7.7) k/uL Neutrophils # (Manual) (1.3-7.7) k/uL Monocytes # (0-1.0) k/uL Monocytes # (Manual) (0-1.0) k/uL Sodium (137-145) mmol/L Potassium (3.5-5.1) mmol/L Chloride (98-107) mmol/L Carbon Dioxide 31 H (22-30) mmol/L BUN 44 H (9-20) mg/dL Creatinine 1.88 H (0.66-1.25) mg/dL Phosphorus 4.6 H (2.5-4.5) mg/dL Total Protein 6.1 L (6.3-8.2) g/dL Albumin 3.2 L (3.5-5.0) g/dL
--- NOTE | 2023-10-29 16:17 | P.CONS ---
History of Present Illness - Reason for Consult Consult date: 10/29/23 Elevated counts on CBC Requesting physician: Sydnee Gusman - Chief Complaint abn labs - History of Present Illness Mr. Bose is a pleasant 83-year-old male patient who saw Dr. Stratton back in 2017 when he was found to have an elevated antiphospholipid antibodies when he was being worked up for hypercoagulable state after a stroke. IgM anticardiolipin antibodies were 58.9, PTT was 28.2, the rest of the workup was negative. Patient had no prior history of DVT or PE. When seen it was noted that the patient had been on hydroxyurea, prescribed by Dr. Randolph client support consultant at [place] in 2013. Patient was diagnosed with polycythemia vera, positive JAK2 V16F mutation. His hemoglobin was maintained in the 12-13 range, hematocrit in the high 30s, platelets in the 200,000 range. Recommendations were to continue hydroxyurea and keep the hematocrit 45% or lower and continue antiplatelet therapy. He has not been seen since 2017. He was admitted earlier this month for shortness of breath and at that time, recommendations for contacting the office for a follow-up appointment was placed in the discharge plan Patient is currently admitted from [facility], abnormal lab values elevated potassium and phosphorus-concerned that it may be due to recent medication changes. CBC reviewed and after some fluids WBC 21.8, hemoglobin 16.7, hematocrit 54.7, platelets 655,000. ANC 18.3. BUN 44 creatinine 1.88, improved from admission as well. Patient was able to recall that he was recently hospitalized. He was able to say that he has been told that his labs were abnormal before, does not remember seeing a client support consultant. He denied any flushing, itching, unusual shortness of breath, he states that he smoked for about 20 years, no heavy alcohol use. He states that he resides at a facility. Review of Systems Point review of systems is negative except as stated in HPI Past Medical History Past Medical History: Asthma, Heart Failure, CVA/TIA, Hyperlipidemia, Hypertension, Myocardial Infarction ([place]) Additional Past Medical History / Comment(s): TIA-2012 R hand residual weakness, EF 40%, [place] Last Myocardial Infarction Date:: 2013 History of Any Multi-Drug Resistant Organisms: None Reported Past Surgical History: Cholecystectomy, Hernia Repair, Tonsillectomy Additional Past Surgical History / Comment(s): SUMANTH CATARACTS Past Anesthesia/Blood Transfusion Reactions: No Reported Reaction Past Psychological History: No Psychological Hx Reported Smoking Status: Former smoker Past Alcohol Use History: Rare Additional Past Alcohol Use History / Comment(s): STARTED SMOKING AT AGE 17 QUIT 30 years later, SMOKED 1/2 PPD Past Drug Use History: None Reported - Past Family History Mother Family Medical History: Cancer Father Family Medical History: Cancer Medications and Allergies Home Medications Medication Instructions Recorded Confirmed Type Latanoprost [Xalatan 0.005%] 1 drop BOTH EYES BID 06/25/16 10/28/23 History Aspirin EC [Ecotrin Low Dose] 162 mg PO DAILY 07/08/21 10/28/23 History Donepezil [Aricept] 10 mg PO DAILY 07/08/21 10/28/23 History Rivaroxaban [Xarelto] 2.5 mg PO BID 07/08/21 10/28/23 History Ferrous Sulfate [Iron] 325 mg PO DAILY 06/29/22 10/28/23 History Rosuvastatin Calcium 5 mg PO HS 06/29/22 10/28/23 History Brimonidine Tartrate [Alphagan P 1 drop BOTH EYES BID 10/17/23 10/28/23 History 0.2% Ophth Soln] Potassium Chloride ER [K-Dur 20] 20 meq PO DAILY 10/17/23 10/28/23 History Spironolactone [Aldactone] 12.5 mg PO DAILY #30 tab 10/20/23 10/28/23 Rx Torsemide [Demadex] 20 mg PO DAILY #30 tab 10/20/23 10/28/23 Rx Ondansetron [Zofran] 4 mg PO AC-BRKFST 10/28/23 10/28/23 History lisinopriL [Zestril] 10 mg PO DAILY 10/28/23 10/28/23 History Allergies Allergy/AdvReac Type Severity Reaction Status Date / Time codeine AdvReac Nausea & Verified 10/28/23 19:43 Vomiting furosemide [From Lasix] AdvReac Nausea & Verified 10/28/23 19:43 Vomiting Physical Exam Vitals: Vital Signs Temp Pulse Pulse Resp BP BP Pulse Ox 10/29/23 12:55 97.5 F L 61 16 136/62 98 10/29/23 11:34 80 18 142/64 97 03/19/24 06:15 77 17 146/66 98 10/29/23 03:27 79 17 10/29/23 02:06 77 17 136/70 96 10/29/23 00:35 78 19 133/65 94 L 10/28/23 23:00 78 18 109/63 94 L 10/28/23 20:57 79 20 138/66 94 L 10/28/23 20:30 71 18 126/79 96 10/28/23 19:02 77 18 156/73 96 10/28/23 17:30 98.6 F 85 20 155/85 95 Intake and Output 10/28/23 10/29/23 10/29/23 22:59 06:59 14:59 Intake Total 4 Output Total 240 Balance -236 Intake: Oral 4 Output: Urine 240 Other: Voiding Method Urinal Weight 55.792 kg 55.792 kg - Constitutional General appearance: cooperative, no acute distress, thin - EENT Eyes: anicteric sclerae, EOMI ENT: hearing grossly normal, normal oropharynx - Neck Neck: no lymphadenopathy - Respiratory Respiratory: bilateral: CTA - Cardiovascular Rhythm: regular Heart sounds: normal: S1, S2 Abnormal Heart Sounds: no systolic murmur, no diastolic murmur, no rub, no S3 Gallop, no S4 Gallop, no click, no other leg Peripheral Edema: bilateral: None - Gastrointestinal General gastrointestinal: no absent bowel sounds, no decreased bowel sounds, no distended, no hepatomegaly, no hyperactive bowel sounds, normal bowel sounds, no organomegaly, no rigid, no scaphoid, soft, no splenomegaly, no tenderness, no umbilical hernia, no ventral hernia - Integumentary Integumentary: pale - Neurologic Neurologic: CNII-XII intact - Musculoskeletal Musculoskeletal: generalized weakness, strength equal bilaterally - Psychiatric Psychiatric: A&O x's 3, appropriate affect, intact judgment & insight Results CBC & Chem 7: 10/29/23 07:57 10/29/23 07:57 Labs: Abnormal Lab Results - Last 24 Hours (Table) 10/28/23 10/28/23 10/29/23 Range/Units 17:41 17:41 07:57 WBC 25.6 H 21.8 H (3.8-10.6) k/uL RBC 6.00 H (4.30-5.90) m/uL Hgb 17.6 H (13.0-17.5) gm/dL Hct 57.5 H* 54.7 H (39.0-53.0) % MCHC 30.6 L 30.5 L (31.0-37.0) g/dL RDW 15.6 H (11.5-15.5) % Plt Count 936 H 655 H (150-450) k/uL Neutrophils # 18.3 H (1.3-7.7) k/uL Neutrophils # (Manual) 21.25 H (1.3-7.7) k/uL Monocytes # 1.1 H (0-1.0) k/uL Monocytes # (Manual) 1.54 H (0-1.0) k/uL Sodium 135 L (137-145) mmol/L Potassium 6.0 H (3.5-5.1) mmol/L Chloride 97 L (98-107) mmol/L Carbon Dioxide (22-30) mmol/L BUN 49 H (9-20) mg/dL Creatinine 2.35 H (0.66-1.25) mg/dL Phosphorus 5.5 H (2.5-4.5) mg/dL Total Protein (6.3-8.2) g/dL Albumin (3.5-5.0) g/dL 10/29/23 Range/Units 07:57 WBC (3.8-10.6) k/uL RBC (4.30-5.90) m/uL Hgb (13.0-17.5) gm/dL Hct (39.0-53.0) % MCHC (31.0-37.0) g/dL RDW (11.5-15.5) % Plt Count (150-450) k/uL Neutrophils # (1.3-7.7) k/uL Neutrophils # (Manual) (1.3-7.7) k/uL Monocytes # (0-1.0) k/uL Monocytes # (Manual) (0-1.0) k/uL Sodium (137-145) mmol/L Potassium (3.5-5.1) mmol/L Chloride (98-107) mmol/L Carbon Dioxide 31 H (22-30) mmol/L BUN 44 H (9-20) mg/dL Creatinine 1.88 H (0.66-1.25) mg/dL Phosphorus 4.6 H (2.5-4.5) mg/dL Total Protein 6.1 L (6.3-8.2) g/dL Albumin 3.2 L (3.5-5.0) g/dL Chest x-ray: report reviewed Assessment and Plan (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 Priority: Medium Code(s): Z15.89 - GENETIC SUSCEPTIBILITY TO OTHER DISEASE SNOMED Code(s): 64312192 (2) Polycythemia vera Current Visit: Yes Status: Chronic Priority: Medium Code(s): D45 - POLYCYTHEMIA VERA SNOMED Code(s): 313733782 (3) Thrombocytosis Current Visit: Yes Status: Chronic Priority: Medium Code(s): D75.839 - THROMBOCYTOSIS, UNSPECIFIED SNOMED Code(s): 3128646 (4) Leukocytosis Current Visit: Yes Status: Chronic Priority: Medium Code(s): D72.829 - ELEVATED WHITE BLOOD CELL COUNT, UNSPECIFIED SNOMED Code(s): 386545608 Plan: JAK2 V6 17F mutation, Polycythemia vera -Patient's hemoglobin high end of normal, hematocrit slightly above normal at 54.7. No acute intervention at this time. -Iron studies ordered -Patient is on Xarelto prophylactic dose for afib. On aspirin for history of stroke and thrombocytosis -BCR ABL testing ordered as patient white count is progressively worsening
[2023-10-29 17:46] LABS: Glucose,Whole Blood 78 mg/dL (70-110)
[2023-10-29 18:45] LABS: % Iron Saturation 11.16 (15.00-50.00); Ferritin 67.9 ng/mL (22.0-322.0)
[2023-10-29] MEDS: ATORVASTATIN 10 MG TAB PO SCH (21:49)
[2023-10-30 09:13] LABS: ALT 18 U/L (4-49); African American GFR (CKD) 62 (>60 ml/min/1.73 sqM); Albumin 3.2 g/dL (3.5-5.0); Anion Gap 5 mmol/L; Blood Urea Nitrogen 33 mg/dL (9-20); Calcium 8.7 mg/dL (8.4-10.2); Carbon Dioxide 30 mmol/L (22-30); Chloride 104 mmol/L (98-107); Globulin 3.1 g/dL; Glucose 99 mg/dL (74-99); Non-African American GFR(CKD) 54 (>60 ml/min/1.73 sqM); Sodium 139 mmol/L (137-145); Total Protein 6.3 g/dL (6.3-8.2)
[2023-10-30 09:17] LABS: AST 36 U/L (17-59); Alkaline Phosphatase 90 U/L (38-126); Magnesium 2.1 mg/dL (1.6-2.3); Potassium 4.5 mmol/L (3.5-5.1)
[2023-10-30 11:02] VITALS: BMI 17.6
--- NOTE | 2023-10-30 12:11 | P.PN ---
Subjective Patient is seen for follow-up for acute kidney injury, mostly prerenal and improved with IV hydration. Potassium is 4.5 today and serum creatinine down to 1.2. No significant complaints today. Overall feeling well and tolerating oral intake. Objective - Vital Signs Vital signs: Vital Signs Temp 97.6 F 10/30/23 07:59 Pulse 66 10/30/23 07:59 Resp 16 10/30/23 07:59 BP 160/67 10/30/23 07:59 Pulse Ox 98 10/30/23 07:59 FiO2 Intake & Output 10/29/23 10/30/23 10/30/23 18:59 06:59 18:59 Intake Total 4 118 Output Total 240 Balance -236 118 Weight 55.792 kg 55.792 kg Intake: Oral 4 118 Output: Urine 240 Other: Voiding Method Urinal Toilet Toilet Urinal Urinal # Voids 1 1 - Exam Patient is awake, comfortable, no acute distress Examination of the heart S1 and S2 Examination of the lungs bilateral breath sounds are heard Abdomen is soft nontender Examination of lower extremities shows no evidence of edema [employer] exam grossly intact - Labs CBC & Chem 7: 10/29/23 07:57 10/30/23 08:43 Labs: Abnormal Lab Results - Last 24 Hours (Table) 10/29/23 10/30/23 Range/Units 07:57 08:43 BUN 33 H (9-20) mg/dL Iron 27 L (65-175) UG/DL % Saturation 11.16 L (15.00-50.00) Transferrin 173.0 L (204.0-354.0) mg/dL Albumin 3.2 L (3.5-5.0) g/dL Assessment and Plan Assessment: 1. Acute kidney injury prerenal, improved with IV hydration. No documented hypotension. Hold KOURTNEY inhibitor's for now and we can resume low-dose KOURTNEY inhibitor's as outpatient. 2. Hyperkalemia associated with acute kidney injury. Currently off of potassium supplementation and lisinopril. 3. History of CHF status post recent admission for volume overload 4. Cardiomyopathy with EF of 40% 5. Chronic A. fib with controlled ventricular response Plan: Patient can be discharged from nephrology standpoint. Continue to hold KOURTNEY inhibitor's and diuretics. We can resume low-dose short-acting loop diuretic in the next few days if patient develops weight gain or lower extremity edema. Can resume Aldactone Repeat labs in 4-5 days post discharge and follow-up in the office in one week.
[2023-10-30 12:12] LABS: HGB 17.4 gm/dL (13.0-17.5); Hypochromasia Slight; MCH 30.5 pg (25.0-35.0); MCHC 31.4 g/dL (31.0-37.0); MCV 97.2 fL (80.0-100.0); Mean Platelet Volume 9.7; Platelet Count 714 k/uL (150-450); RDW 15.9 % (11.5-15.5); WBC 20.6 k/uL (3.8-10.6)
[2023-10-30 12:17] LABS: HCT 55.4 % (39.0-53.0)
[2023-10-30 14:35] VITALS: BP 122/63; PULSE 73; RESP 18; TEMP 97.7
--- NOTE | 2023-10-30 15:24 | P.DS ---
Providers Date of admission: 10/28/23 20:28 Expected date of discharge: 10/30/23 Attending physician: Sydnee Gusman MD Consults: 10/28/23 20:27 Consult Physician Routine Consulting Provider: John Gonzalez Consult Reason/Comments: ahsan Do you want consulting provider notified?: Yes 10/29/23 05:30 Consult Physician Routine Consulting Provider: Catarino Marcelo Consult Reason/Comments: Leukocytosis, thrombocytosis, polycythemia Do you want consulting provider notified?: Yes, Notify in am Primary care physician: Juliocesar Joyner MD Hospital Course: Discharge Diagnosis: Acute kidney injury with hyperkalemia Leukocytosis without obvious source of infection. Thrombocytosis Polycythemia vera Compensated systolic congestive heart failure, ejection fraction 40% Hospital Course: Patient is a 83-year-old male with recent hospitalization for congestive heart failure with ejection fraction of 40% recently started on Aldactone and torsemide discharged on 10/20/2023, hypertension, dyslipidemia, coronary artery disease, and multiple other comorbid conditions who presented to the emergency department due to abnormal outpatient labs. He was found to have an elevated potassium level. On arrival to the emergency department his vitals were within normal limits. Laboratory analysis was remarkable for white blood cell count of 25.6, hemoglobin 17.6, hematocrit 57.5, sodium 135, potassium 6, BUN 49, creatinine 2.35, and potassium of 5.5. In the emergency department he was started on normal saline and received 2 L bolus and then was started on 130 cc/h. He received sodium bicarb, insulin/dextrose, Lasix, and Lokelma. He was admitted for further monitoring. His renal function normalized. His potassium normalized. He was seen by nephrology. He continued to improve. He was seen by oncology due to his persistent leukocytosis and polycythemia. It was discovered the patient has a history of polycythemia in the past requiring hydro xyurea. He continued to do well. He was able to get up and ambulate on at home. He was therefore determined stable for discharge. Follow-up: KEVIN Dangelo in 1 to 2 days, Dr. Stratton on 12/16, Dr. Bell in 2 weeks, Dr. Benoit in 1 week. Repeat basic metabolic profile in 3 days. Patient will only start Lasix if they have weight gain. He was also prescribed Protonix on discharge due to persistent nausea and vomiting prior to his hospital stay. Weight yourself daily and ONLY start Lasix/furosemide if you gain more than 2 pounds in 1 day or more than 2 pounds in 3 days. Please create a log of theses weights to bring with you to your appointment with Dr. Benoit and Dr. Bell Repeat blood work in 3 days to check kidney function Check Blood pressure daily and make a log to bring to your appointments You likely need to re-try metoprolol if you tolerate your current medications, it does help your heart over all. Patient seen and examined at bedside. He complains of some right foot pain and leg cramping. He denies any chest pain, shortness of breath, edema. Vital signs reviewed and stable. General: Nontoxic, no distress, appears at stated age Cardiovascular: S1S2 reg, no murmur, positive posterior tibial pulse bilateral, Lungs: CTA bilateral, no rhonchi, no rales, no accessory muscle use Abdominal: Soft, nontender to palpation, no guarding, no appreciable organome sravani Ext: No gross muscle atrophy, no edema b/l lower extremities, no contractures Neuro: CN II-XI grossly intact, no focal neuro deficits Psych: Alert, oriented, appropriate affect A total of 35 minutes of time were spent preparing this complex discharge summary. Patient was discharged on 10/30/2023. This dictation was prepared using [employer] voice recognition software. Though every attempt is made to correct errors during dictation some may still exist. Patient Condition at Discharge: Fair Plan - Discharge Summary Discharge Rx Participant: Yes New Discharge Prescriptions: New Furosemide [Lasix] 20 mg PO DAILY #30 tab Pantoprazole Sodium [Protonix] 40 mg PO DAILY #30 tab Continue Latanoprost [Xalatan 0.005%] 1 drop BOTH EYES BID Aspirin EC [Ecotrin Low Dose] 162 mg PO DAILY Spironolactone [Aldactone] 12.5 mg PO DAILY #30 tab Rivaroxaban [Xarelto] 2.5 mg PO BID Donepezil [Aricept] 10 mg PO DAILY Rosuvastatin Calcium 5 mg PO HS Brimonidine Tartrate [Alphagan P 0.2% Ophth Soln] 1 drop BOTH EYES BID Ondansetron [Zofran] 4 mg PO AC-BRKFST Discontinued Torsemide [Demadex] 20 mg PO DAILY #30 tab Ferrous Sulfate [Iron] 325 mg PO DAILY Potassium Chloride ER [K-Dur 20] 20 meq PO DAILY lisinopriL [Zestril] 10 mg PO DAILY Discharge Medication List Latanoprost [Xalatan 0.005%] 1 drop BOTH EYES BID 06/25/16 [History] Aspirin EC [Ecotrin Low Dose] 162 mg PO DAILY 07/08/21 [History] Donepezil [Aricept] 10 mg PO DAILY 07/08/21 [History] Rivaroxaban [Xarelto] 2.5 mg PO BID 07/08/21 [History] Rosuvastatin Calcium 5 mg PO HS 06/29/22 [History] Brimonidine Tartrate [Alphagan P 0.2% Oph Soln] 1 drop BOTH EYES BID 10/17/23 [History] Spironolactone [Aldactone] 12.5 mg PO DAILY #30 tab 10/20/23 [Rx] Ondansetron [Zofran] 4 mg PO AC-BRKFST 10/28/23 [History] Furosemide [Lasix] 20 mg PO DAILY #30 tab 10/30/23 [Rx] Pantoprazole Sodium [Protonix] 40 mg PO DAILY #30 tab 10/30/23 [Rx] Follow up Appointment(s)/Referral(s): Denia Benoit MD [STAFF PHYSICIAN[facility] - [facility]2 [facility] Yonathan Bell MD [STAFF PHYSICIAN] - 2 Weeks [facility] [NON-STAFF] - 1 Week Juan Antonio Stratton MD [STAFF PHYSICIAN] - 12/17/23 9:15 am Ambulatory/Diagnostic Orders: Basic Metabolic Panel [LAB.AMB] Time Frame: 3 Days, Location: None Selected Activity/Diet/Wound Care/Special Instructions: Activity: As tolerated Diet: Heart healthy Special Instructions: Weight yourself daily and ONLY start Lasix/furosemide if you gain more than 2 pounds in 1 day or more than 2 pounds in 3 days. Please create a log of theses weights to bring with you to your appointment with Dr. Beniot and Dr. Bell Repeat blood work in 3 days to check kidney function Check Blood pressure daily and make a log to bring to your appointments You likely need to re-try metoprolol if you tolerate your current medications, it does help your heart over all. Discharge Disposition: HOME WITH HOME HEALTH SERVICES
--- NOTE | 2023-10-30 15:44 | P.PN ---
Subjective Progress Note Date: 10/30/23 Principal diagnosis: Polycythemia vera In follow-up today patient denies any specific complaints, he is looking forward to going home, denies any shortness of breath, pain. His daughter was on the phone to discuss patient's hematological history. Objective - Vital Signs Vital signs: Vital Signs Temp 97.7 F 10/30/23 12:00 Pulse 73 10/30/23 12:00 Resp 18 10/30/23 12:00 BP 122/63 10/30/23 12:00 Pulse Ox 99 10/30/23 12:00 FiO2 Intake & Output 10/29/23 10/30/23 10/30/23 18:59 06:59 18:59 Intake Total 4 236 Output Total 240 Balance -236 236 Weight 55.792 kg 55.792 kg Intake: Oral 4 236 Output: Urine 240 Other: Voiding Method Urinal Toilet Toilet Urinal Urinal # Voids 1 1 - Constitutional General appearance: Present: cooperative, no acute distress, thin - EENT Eyes: Present: anicteric sclerae, EOMI ENT: Present: hearing grossly normal - Respiratory Details: Respirations even and unlabored at rest - Peripheral edema leg Peripheral Edema: bilateral: None - Neurologic Neurologic: Present: CNII-XII intact - Musculoskeletal Musculoskeletal: Present: strength equal bilaterally - Psychiatric Psychiatric Comment(s): Alert and oriented x 2, calm affect, pleasant - Labs CBC & Chem 7: 10/30/23 11:47 10/30/23 08:43 Labs: Abnormal Lab Results - Last 24 Hours (Table) 10/29/23 10/30/23 10/30/23 Range/Units 07:57 08:43 11:47 WBC 20.6 H (3.8-10.6) k/uL Hct 55.4 H (39.0-53.0) % RDW 15.9 H (11.5-15.5) % Plt Count 714 H (150-450) k/uL BUN 33 H (9-20) mg/dL Iron 27 L (65-175) UG/DL % Saturation 11.16 L (15.00-50.00) Transferrin 173.0 L (204.0-354.0) mg/dL Albumin 3.2 L (3.5-5.0) g/dL Assessment and Plan (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 Priority: Medium Code(s): Z15.89 - GENETIC SUSCEPTIBILITY TO OTHER DISEASE SNOMED Code(s): 65125763 (2) Polycythemia vera Current Visit: Yes Status: Chronic Priority: Medium Code(s): D45 - POLYCYTHEMIA VERA SNOMED Code(s): 957799366 (3) Thrombocytosis Current Visit: Yes Status: Chronic Priority: Medium Code(s): D75.839 - THROMBOCYTOSIS, UNSPECIFIED SNOMED Code(s): 2291820 (4) Leukocytosis Current Visit: Yes Status: Chronic Priority: Medium Code(s): D72.829 - ELEVATED WHITE BLOOD CELL COUNT, UNSPECIFIED SNOMED Code(s): 839445201 Plan: JAK2 V6 17F mutation, Polycythemia vera -Recommendations for treatment of PV in patients over the age of 60 is oral Hydrea, smallest dose needed to keep hematocrit around 45. -Did discuss the case with patient's daughter. Patient has been seen a Dr. Whiting through [facility]. We will contact and provide information regarding patient's PV diagnosis and treatment recommendations. -Iron studies ordered -Patient is on Xarelto prophylactic dose for afib. On aspirin for history of stroke and useful for thrombocytosis. Ok to continue both at this time from a Hematology/Oncology standpoint -BCR ABL testing ordered as patient white count is progressively worsening, still pending results -Follow-up with Dr. Stratton in [place] plan.
== END 2023-10-30 17:27 | disposition home health service (06) | DRG 683 ==
LOC: EC 17:27 → 3SCARD 20:28 → 5NMEDONC 10-29 10:32
PROVIDERS: ADMIT Internal Medicine; ATTEND Internal Medicine
DX: N17.0 Acute kidney failure with tubular necrosis (principal); I42.9 Cardiomyopathy, unspecified; I50.22 Chronic systolic (congestive) heart failure; I48.20 Chronic atrial fibrillation, unspecified; I11.0 Hypertensive heart disease with heart failure; F03.90 Unspecified dementia, unspecified severity, without behavioral disturbance, psychotic disturbance, mood disturbance, and anxiety; I69.331 Monoplegia of upper limb following cerebral infarction affecting right dominant side; J45.909 Unspecified asthma, uncomplicated; D75.839 Thrombocytosis, unspecified; E87.5 Hyperkalemia; D72.829 Elevated white blood cell count, unspecified; E78.5 Hyperlipidemia, unspecified; I25.10 Atherosclerotic heart disease of native coronary artery without angina pectoris; D75.1 Secondary polycythemia; T50.916A Underdosing of multiple unspecified drugs, medicaments and biological substances, initial encounter; Z91.138 Patient's unintentional underdosing of medication regimen for other reason; Z79.82 Long term (current) use of aspirin; Z79.01 Long term (current) use of anticoagulants; I25.2 Old myocardial infarction; Z15.89 Genetic susceptibility to other disease; Z87.891 Personal history of nicotine dependence; Z79.899 Other long term (current) drug therapy; Z88.5 Allergy status to narcotic agent; Z88.8 Allergy status to other drugs, medicaments and biological substances
CPT/HCPCS: 36415; 71045; 80053; 81003; 82728; 83540; 83550; 83735; 84100; 85025; 85027; 93005; 96361; 96374; 96375; 99291

== ENCOUNTER 2024-04-15 12:54 | Inpatient (IN) | payer MEDICARE ==
--- NOTE | 2024-04-15 13:11 | ED ---
Extremity Problem HPI - General Chief complaint: Recheck/Abnormal Lab/Rx Stated complaint: R Toe wound Time Seen by Provider: 04/15/24 13:03 Source: patient, RN notes reviewed Mode of arrival: ambulatory Limitations: no limitations - History of Present Illness Initial comments: This is an 84-year-old male who presents to the emergency department for a right foot wound. Patient has been dealing with a wound to his right second toe and is following with [facility]. He has been following with them for the last couple of weeks, however a couple of days ago the toe started to turn black. He is only in moderate discomfort. He was given a referral to Dr. Oscar, because they were concerned about poor circulation in his extremities making it difficult for him to heal. They did just start him on a course of antibiotics today, and he had finished a course prior to that. However, they do not believe they will be effective because of the circulation problems. He was advised to come to the emergency department for further evaluation. - Related Data Home Medications Medication Instructions Recorded Confirmed Latanoprost [Xalatan 0.005%] 1 drop BOTH EYES BID 06/25/16 04/15/24 Aspirin EC [Ecotrin Low Dose] 81 mg PO DAILY 07/08/21 04/15/24 Donepezil [Aricept] 10 mg PO DAILY 07/08/21 04/15/24 Rivaroxaban [Xarelto] 2.5 mg PO BID 07/08/21 04/15/24 Rosuvastatin Calcium 5 mg PO HS 06/29/22 04/15/24 Brimonidine Tartrate [Alphagan P 1 drop BOTH EYES DAILY 10/17/23 04/15/24 0.2% Ophth Soln] Hydroxyurea [Hydrea] 500 mg PO DAILY 04/15/24 04/15/24 Hydroxyurea [Hydrea] 500 mg PO MOTUWETHFR@2100 04/15/24 04/15/24 Levofloxacin [Levaquin] 750 mg PO DIRECTED 04/15/24 04/15/24 oxyCODONE-APAP 5-325MG [Percocet 1 tab PO DIRECTED 04/15/24 04/15/24 5-325 mg] Previous Rx's Medication Instructions Recorded Spironolactone [Aldactone] 12.5 mg PO DAILY #30 tab 10/20/23 Pantoprazole Sodium [Protonix] 40 mg PO DAILY #30 tab 10/30/23 Allergies Allergy/AdvReac Type Severity Reaction Status Date / Time codeine AdvReac Nausea & Verified 04/15/24 15:25 Vomiting furosemide [From Lasix] AdvReac Nausea & Verified 04/15/24 15:25 Vomiting Review of Systems ROS Statement: Those systems with pertinent positive or pertinent negative responses have been documented in the HPI. ROS Other: All systems not noted in ROS Statement are negative. Past Medical History Past Medical History: Asthma, CVA/TIA, Hyperlipidemia, Hypertension, Myocardial Infarction ([place]) Additional Past Medical History / Comment(s): TIA-2012 R hand residual weakness Last Myocardial Infarction Date:: 2013 History of Any Multi-Drug Resistant Organisms: None Reported Past Surgical History: Cholecystectomy, Hernia Repair, Tonsillectomy Additional Past Surgical History / Comment(s): SUMANTH CATARACTS Past Anesthesia/Blood Transfusion Reactions: No Reported Reaction Past Psychological History: No Psychological Hx Reported Smoking Status: Never smoker Past Alcohol Use History: Rare Past Drug Use History: None Reported - Past Family History Mother Family Medical History: Cancer Father Family Medical History: Cancer General Exam Limitations: no limitations General appearance: alert, in no apparent distress Head exam: Present: atraumatic, normocephalic, normal inspection Respiratory exam: Present: normal lung sounds bilaterally. Absent: respiratory distress, wheezes, rales, rhonchi, stridor Cardiovascular Exam: Present: regular rate, normal rhythm, normal heart sounds. Absent: systolic murmur, diastolic murmur, rubs, gallop, clicks Extremities exam: Present: other (The right foot is diffusely erythematous, warm, and swollen. The second toe on the right foot is necrotic towards the middle and base with an open draining wound.) Neurological exam: Present: alert, oriented X3, CN II-XII intact Psychiatric exam: Present: normal affect, normal mood Course Vital Signs 04/15/24 04/15/24 12:57 14:52 Temperature 98.1 F Pulse Rate 89 84 Respiratory 16 18 Rate Blood Pressure 137/67 142/74 O2 Sat by Pulse 95 95 Oximetry Medical Decision Making - Medical Decision Making This is an 84 year old male who presents to the emergency department for a right foot wound. Was pt. sent in by a medical professional or institution? @ -No Did you speak to anyone other than the patient for history? @ -No Did you review nursing and triage notes? @ -Yes, and I agree, it is accurate with regards to the patient's symptoms. Were old charts reviewed? @ -No Differential Diagnosis? @ -Differential Musculoskeletal: Muscular strain, contusion, ligament sprain, fracture, arthritis, septic arthritis, bursitis, cellulitis, muscle spasm, nerve compression, DVT, arterial occlusion, herpes zoster, electrolyte abnormality, tumor.... This is not meant to be in all inclusive list EKG interpreted by me (3pts min.)? @ -EKG interpreted by me demonstrating the following: Sinus rhythm. Ventricular rate 85 bpm, WI interval 168 ms, QRS duration 100 ms, QTc 452 ms. X-rays interpreted by me (1pt min.)? @ -X-ray of the right foot obtained. My interpretation identifies no subcutaneous gas formation. X-ray of the left foot obtained. Interpretation identifies no acute fractures. CT interpreted by me (1pt min.)? @ -Pending U/S interpreted by me (1pt. min.)? @ -Not obtained What testing was considered but not performed? (CT, X-rays, U/S, labs)? Why? @ -None What meds were considered but not given? Why? @ -None Did you discuss the management of the patient with other professionals? @ -Yes, Dr. Mabry, who accepts the patient for admission. Did you reconcile home meds? @ -Yes - Xarelto held in the event he has surgery in the next couple of days. Was smoking cessation discussed for >3mins.? @ -No Was critical care preformed (if so, how long)? @ -No Were there social determinants of health that impacted care today? How? (Homele ssness, low income, unemployed, alcoholism, drug addiction, transportation, low edu. Level, literacy, decrease access to med. care, fpc, rehab)? @ -No Was there de-escalation of care discussed even if they declined? (Discuss DNR or withdrawal of care, Hospice)? @ -No What co-morbidities impacted this encounter? (DM, HTN, Smoking, COPD, CAD, Canc er, CVA, Hep., AIDS, mental health diagnosis, sleep apnea, morbid obesity)? @ -HLD, HTN Was patient admitted / discharged? @ -Admitted. Lab work demonstrates leukocytosis of 14.2. ESR elevated at 54, CRP of 3.1, and lactic acid of 2.1. X-ray reveals no signs of osseous erosion or subcutaneous gas. On exam the second toe on the right foot is necrotic with signs of infection affecting the rest of the foot. Patient admitted to medicine for right lower extremity cellulitis with gangrene of the right toe. Wound and blood cultures were obtained and the patient was started on vancomycin and cefepime. Consult placed for vascular surgery and infectious disease. At the time of admission he started to complain of left leg and foot pain as well. X- ray of the left foot obtained with results pending at the time of admission. We did also obtain a CTA of the bilateral lower extremities given the signs of vascular compromise, and those results were also pending at the time of admission. Case discussed with ED attending, Dr. Dunn. Undiagnosed new problem with uncertain prognosis? @ -None Drug Therapy requiring intensive monitoring for toxicity (Heparin, Nitro, Insulin, Cardizem)? @ -None Were any procedures done? @ -None Diagnosis/symptom? @ -Right lower extremity cellulitis, gangrene of right second toe Acute, or Chronic, or Acute on Chronic? @ -Acute Uncomplicated (without systemic symptoms) or Complicated (systemic symptoms)? @ -Uncomplicated Side effects of treatment? @ -None Exacerbation, Progression, or Severe Exacerbation] @ -Not applicable Poses a threat to life or bodily function? @ -Yes, can lead to life-threatening infection - Lab Data Result diagrams: 04/15/24 13:16 04/15/24 13:16 Lab Results 04/15/24 04/15/24 04/15/24 Range/Units 13:16 13:16 14:12 WBC 14.2 H (3.8-10.6) k/uL RBC 3.51 L (4.30-5.90) m/uL Hgb 13.7 (13.0-17.5) gm/dL Hct 41.0 (39.0-53.0) % MCV 116.8 H (80.0-100.0) fL MCH 39.1 H (25.0-35.0) pg MCHC 33.5 (31.0-37.0) g/dL RDW 19.4 H (11.5-15.5) % Plt Count 504 H (150-450) k/uL MPV 10.4 Neutrophils % (Manual) 87 % Lymphocytes % (Manual) 5 % Monocytes % (Manual) 5 % Eosinophils % (Manual) 3 % Neutrophils # (Manual) 12.35 H (1.3-7.7) k/uL Lymphocytes # (Manual) 0.71 L (1.0-4.8) k/uL Monocytes # (Manual) 0.71 (0-1.0) k/uL Eosinophils # (Manual) 0.43 (0-0.7) k/uL Nucleated RBCs 0 (0-0) /100 WBC Manual Slide Review Performed Hypochromasia Slight Anisocytosis Slight Macrocytosis Marked A ESR 54 H (0-20) mm/Hr Sodium 137 (137-145) mmol/L Potassium 4.7 (3.5-5.1) mmol/L Chloride 100 (98-107) mmol/L Carbon Dioxide 30 (22-30) mmol/L Anion Gap 7 mmol/L BUN 31 H (9-20) mg/dL Creatinine 1.14 (0.66-1.25) mg/dL Est GFR (CKD-EPI)AfAm 68 (>60 ml/min/1.73 sqM) Est GFR (CKD-EPI)NonAf 59 (>60 ml/min/1.73 sqM) Glucose 100 H (74-99) mg/dL Lactic Ac Sepsis Rflx Plasma Lactic Acid Naldo 2.1 H* (0.7-2.0) mmol/L Calcium 9.3 (8.4-10.2) mg/dL Total Bilirubin 1.0 (0.2-1.3) mg/dL AST 39 (17-59) U/L ALT 22 (4-49) U/L Alkaline Phosphatase 130 H (38-126) U/L C-Reactive Protein 3.1 H (<1.0) mg/dL Total Protein 6.8 (6.3-8.2) g/dL Albumin 3.8 (3.5-5.0) g/dL 04/15/24 Range/Units 14:38 WBC (3.8-10.6) k/uL RBC (4.30-5.90) m/uL Hgb (13.0-17.5) gm/dL Hct (39.0-53.0) % MCV (80.0-100.0) fL MCH (25.0-35.0) pg MCHC (31.0-37.0) g/dL RDW (11.5-15.5) % Plt Count (150-450) k/uL MPV Neutrophils % (Manual) % Lymphocytes % (Manual) % Monocytes % (Manual) % Eosinophils % (Manual) % Neutrophils # (Manual) (1.3-7.7) k/uL Lymphocytes # (Manual) (1.0-4.8) k/uL Monocytes # (Manual) (0-1.0) k/uL Eosinophils # (Manual) (0-0.7) k/uL Nucleated RBCs (0-0) /100 WBC Manual Slide Review Hypochromasia Anisocytosis Macrocytosis ESR (0-20) mm/Hr Sodium (137-145) mmol/L Potassium (3.5-5.1) mmol/L Chloride (98-107) mmol/L Carbon Dioxide (22-30) mmol/L Anion Gap mmol/L BUN (9-20) mg/dL Creatinine (0.66-1.25) mg/dL Est GFR (CKD-EPI)AfAm (>60 ml/min/1.73 sqM) Est GFR (CKD-EPI)NonAf (>60 ml/min/1.73 sqM) Glucose (74-99) mg/dL Lactic Ac Sepsis Rflx Y Plasma Lactic Acid Naldo (0.7-2.0) mmol/L Calcium (8.4-10.2) mg/dL Total Bilirubin (0.2-1.3) mg/dL AST (17-59) U/L ALT (4-49) U/L Alkaline Phosphatase (38-126) U/L C-Reactive Protein (<1.0) mg/dL Total Protein (6.3-8.2) g/dL Albumin (3.5-5.0) g/dL - Radiology Data Radiology results: report reviewed, image reviewed Disposition Clinical Impression: Cellulitis of right foot, Gangrene of toe of right foot Disposition: ADMITTED IP TO THIS HOSP
[2024-04-15 13:56] LABS: ALT 22 U/L (4-49); AST 39 U/L (17-59); African American GFR (CKD) 68 (>60 ml/min/1.73 sqM); Albumin 3.8 g/dL (3.5-5.0); Alkaline Phosphatase 130 U/L (38-126); Anion Gap 7 mmol/L; Blood Urea Nitrogen 31 mg/dL (9-20); C Reactive Protein 3.1 mg/dL (<1.0); Calcium 9.3 mg/dL (8.4-10.2); Carbon Dioxide 30 mmol/L (22-30); Chloride 100 mmol/L (98-107); Glucose 100 mg/dL (74-99); Non-African American GFR(CKD) 59 (>60 ml/min/1.73 sqM); Potassium 4.7 mmol/L (3.5-5.1); Sodium 137 mmol/L (137-145); Total Protein 6.8 g/dL (6.3-8.2)
[2024-04-15 14:03] LABS: Anisocytosis Slight; HGB 13.7 gm/dL (13.0-17.5); Hypochromasia Slight; MCH 39.1 pg (25.0-35.0); MCHC 33.5 g/dL (31.0-37.0); MCV 116.8 fL (80.0-100.0); Macrocytosis Marked; Mean Platelet Volume 10.4; Platelet Count 504 k/uL (150-450); RBC 3.51 m/uL (4.30-5.90); RDW 19.4 % (11.5-15.5); WBC 14.2 k/uL (3.8-10.6)
--- NOTE | 2024-04-15 14:33 | XR ---
EXAMINATION TYPE: XR foot complete RT DATE OF EXAM: 04/15/2024 2:24 PM CLINICAL INDICATION: Male, 84 years old with history of Infection; [facility] COMPARISON: None TECHNIQUE: XR foot complete RT examined in the AP, oblique, and lateral projections. FINDINGS: No evidence of any acute osseous pathology. Diffuse osseous demineralization, this limits evaluation for fractures. Multifocal degeneration changes throughout the joints of the foot with osteophyte form ation and joint space narrowing. Calcaneal plantar spurring is present.No evidence of osseous erosion to suggest osteomyelitis. IMPRESSION: 1. No evidence of acute fracture. 2. Multifocal degeneration changes throughout the joints of the foot.
[2024-04-15 14:42] LABS: Eosinophils # (M) 0.43 k/uL (0-0.7); Lymphocytes # (M) 0.71 k/uL (1.0-4.8); Monocytes # (M) 0.71 k/uL (0-1.0); Neutrophils # (M) 12.35 k/uL (1.3-7.7); Neutrophils % (M) 87 %; Nucleated Red Blood Cells 0 /100 WBC (0-0); Total Cells Counted 100
[2024-04-15] MEDS ORDERED: VANCOMYCIN IV PER PHARMACY 1 EACH MISC MISCELLANE PRN (14:47)
[2024-04-15] MEDS ORDERED: CEFEPIME 1 GM in SODIUM CHLORIDE 0.9% 50 ML IVPB SCH (15:00)
[2024-04-15] MEDS ORDERED: ONDANSETRON 4 MG/2 ML VIAL IVP PRN (15:09)
[2024-04-15] MEDS ORDERED: NALOXONE 0.4 MG/ML 1 ML VIAL IV PRN (15:09)
[2024-04-15] MEDS ORDERED: ACETAMINOPHEN TAB 325 MG TAB PO PRN (15:09)
[2024-04-15] MEDS: CEFEPIME 2 GM in SODIUM CHLORIDE 0.9% 100 ML IVPB SCH (15:25)
[2024-04-15] MEDS: SODIUM CHLORIDE 0.9% 500 ML 500 ML IV STA (16:07)
--- NOTE | 2024-04-15 16:11 | XR ---
EXAMINATION TYPE: XR foot complete 3 views LT DATE OF EXAM: 04/15/2024 Comparison: None Clinical History: 84-year-old male with pain Findings: Marked osteopenia. Severe degenerative change first MTP joint. Small plantar calcaneal spur. The degr ee of osteopenia limits evaluation. No displaced fracture is seen. No periostitis or osteomyelitis. Impression: 1. Severe osteopenia limiting the evaluation. No displaced fracture seen. 2. 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
--- NOTE | 2024-04-15 16:33 | P.GSCN ---
History of Present Illness History of present illness: 84-year-old gentleman patient came to the emergency room with history of right foot second toe gangrene changes. Patient has been seen [facility] for the last 2 weeks. Patient supposed to come to the office for vascular evaluation. For the last 2 days the second toe becomes dark and gangrene changes Medical history history of hypertension hyperlipidemia patient has history of [place] in [address] Rinaldi derrick hand Surgical history patient had hernia repair done in the past On examination neck is supple no bruit appreciated Chest is clear could not both lung first second sound present Abdomen soft nontender femorals are 1+ bilateral foot dorsalis pedis 1+ right foot DP PT not palpable patient has a right foot second toe gangrene changes Plan is patient is on IV antibiotic patient will need right second toe ray amputation we will consult Dr. Rinaldi stable angiogram with you Past Medical History Past Medical History: Asthma, CVA/TIA, Hyperlipidemia, Hypertension, Myocardial Infarction ([place]) Additional Past Medical History / Comment(s): TIA-2012 R hand residual weakness Last Myocardial Infarction Date:: 2013 History of Any Multi-Drug Resistant Organisms: None Reported Past Surgical History: Cholecystectomy, Hernia Repair, Tonsillectomy Additional Past Surgical History / Comment(s): SUMANTH CATARACTS Past Anesthesia/Blood Transfusion Reactions: No Reported Reaction Past Psychological History: No Psychological Hx Reported Smoking Status: Never smoker Past Alcohol Use History: Rare Past Drug Use History: None Reported - Past Family History Mother Family Medical History: Cancer Father Family Medical History: Cancer Medications and Allergies Home Medications Medication Instructions Recorded Confirmed Type Latanoprost [Xalatan 0.005%] 1 drop BOTH EYES BID 06/25/16 04/15/24 History Aspirin EC [Ecotrin Low Dose] 81 mg PO DAILY 07/08/21 04/15/24 History Donepezil [Aricept] 10 mg PO DAILY 07/08/21 04/15/24 History Rivaroxaban [Xarelto] 2.5 mg PO BID 07/08/21 04/15/24 History Rosuvastatin Calcium 5 mg PO HS 06/29/22 04/15/24 History Brimonidine Tartrate [Alphagan P 1 drop BOTH EYES DAILY 10/17/23 04/15/24 History 0.2% Ophth Soln] Spironolactone [Aldactone] 12.5 mg PO DAILY #30 tab 10/20/23 04/15/24 Rx Pantoprazole Sodium [Protonix] 40 mg PO DAILY #30 tab 10/30/23 04/15/24 Rx Hydroxyurea [Hydrea] 500 mg PO DAILY 04/15/24 04/15/24 History Hydroxyurea [Hydrea] 500 mg PO MOTUWETHFR@2100 04/15/24 04/15/24 History Levofloxacin [Levaquin] 750 mg PO DIRECTED 04/15/24 04/15/24 History oxyCODONE-APAP 5-325MG [Percocet 1 tab PO DIRECTED 04/15/24 04/15/24 History 5-325 mg] Allergies Allergy/AdvReac Type Severity Reaction Status Date / Time codeine AdvReac Nausea & Verified 04/15/24 15:25 Vomiting furosemide [From Lasix] AdvReac Nausea & Verified 04/15/24 15:25 Vomiting Surgical - Exam Vital Signs Temp Pulse Resp BP Pulse Ox 98.1 F 89 16 137/67 95 04/15/24 12:57 04/15/24 12:57 04/15/24 12:57 04/15/24 12:57 04/15/24 12:57 Results - Labs 04/15/24 13:16 04/15/24 13:16 Abnormal Lab Results - Last 24 Hours (Table) 04/15/24 04/15/24 04/15/24 Range/Units 13:16 13:16 14:12 WBC 14.2 H (3.8-10.6) k/uL RBC 3.51 L (4.30-5.90) m/uL MCV 116.8 H (80.0-100.0) fL MCH 39.1 H (25.0-35.0) pg RDW 19.4 H (11.5-15.5) % Plt Count 504 H (150-450) k/uL Neutrophils # (Manual) 12.35 H (1.3-7.7) k/uL Lymphocytes # (Manual) 0.71 L (1.0-4.8) k/uL Macrocytosis Marked A BUN 31 H (9-20) mg/dL Glucose 100 H (74-99) mg/dL Plasma Lactic Acid Naldo 2.1 H* (0.7-2.0) mmol/L Alkaline Phosphatase 130 H (38-126) U/L C-Reactive Protein 3.1 H (<1.0) mg/dL Diabetes panel 04/15/24 Range/Units 13:16 Sodium 137 (137-145) mmol/L Potassium 4.7 (3.5-5.1) mmol/L Chloride 100 (98-107) mmol/L Carbon Dioxide 30 (22-30) mmol/L BUN 31 H (9-20) mg/dL Creatinine 1.14 (0.66-1.25) mg/dL Glucose 100 H (74-99) mg/dL Calcium 9.3 (8.4-10.2) mg/dL AST 39 (17-59) U/L ALT 22 (4-49) U/L Alkaline Phosphatase 130 H (38-126) U/L Total Protein 6.8 (6.3-8.2) g/dL Albumin 3.8 (3.5-5.0) g/dL Calcium panel 04/15/24 Range/Units 13:16 Calcium 9.3 (8.4-10.2) mg/dL Albumin 3.8 (3.5-5.0) g/dL Pituitary panel 04/15/24 Range/Units 13:16 Sodium 137 (137-145) mmol/L Potassium 4.7 (3.5-5.1) mmol/L Chloride 100 (98-107) mmol/L Carbon Dioxide 30 (22-30) mmol/L BUN 31 H (9-20) mg/dL Creatinine 1.14 (0.66-1.25) mg/dL Glucose 100 H (74-99) mg/dL Calcium 9.3 (8.4-10.2) mg/dL Adrenal panel 04/15/24 Range/Units 13:16 Sodium 137 (137-145) mmol/L Potassium 4.7 (3.5-5.1) mmol/L Chloride 100 (98-107) mmol/L Carbon Dioxide 30 (22-30) mmol/L BUN 31 H (9-20) mg/dL Creatinine 1.14 (0.66-1.25) mg/dL Glucose 100 H (74-99) mg/dL Calcium 9.3 (8.4-10.2) mg/dL Total Bilirubin 1.0 (0.2-1.3) mg/dL AST 39 (17-59) U/L ALT 22 (4-49) U/L Alkaline Phosphatase 130 H (38-126) U/L Total Protein 6.8 (6.3-8.2) g/dL Albumin 3.8 (3.5-5.0) g/dL
[2024-04-15] MEDS: VANCOMYCIN 1,000 MG in SODIUM CHLORIDE 0.9% 250 ML IVPB STA (16:59)
[2024-04-15] MEDS: HYDROcodone/APAP 5-325MG 1 EACH TAB PO PRN (17:28)
[2024-04-15 18:24] LABS: Erythrocyte Sedimentation Rate 54 mm/Hr (0-20)
--- NOTE | 2024-04-15 19:29 | CT ---
EXAMINATION TYPE: CT angio lower extremity BILAT CT DLP: 1117.5 mGycm, Automated exposure control for dose reduction was used. DATE OF EXAM: 04/15/2024 7:06 PM COMPARISON: None. . CLINICAL INDICATION:Male, 84 years old with history of Bilateral LE pain, nonhealing wound on right; PHH, Bilateral Lower extremity pain, necrotic right great toe. TECHNIQUE: Multiple thin slice sub-millimeter images were obtained from the pelvis through the lower extremities after administration of contrast. 3-D reconstructed images and maximum intensity project ion images were obtained. CT angio lower extremity BILAT CT Contrast: Contrast used:80 cc mL of Isovue 370 without and with IV Contrast, Oral contrast used: None FINDINGS: Exam begins in the mid pelvis and does not include the abdominal aorta or branches, nor the proximal iliac arterial trees. There is diffuse moderate to severe mostly calcified atherosclerotic plaque throughout the bilateral lower extremities. On the left, the visualized external iliac artery appears nonopacified consistent with occlusion, wit h some reconstitution of flow at the level of the common femoral artery. However there is diffuse dis ease with multiple tandem stenoses throughout the common femoral, superficial femoral, and profunda f emoris arteries likely resulting in significant stenoses. Superficial femoral artery is diffusely dis eased throughout. Popliteal artery appears patent but diminutive. Below the knee, there is significan tly less atherosclerotic disease and there appears to be a patent three-vessel runoff to the ankle, h owever the vessels are diminutive. Dorsalis pedis appears most robust. On the right, the visualized external iliac artery appears patent but diffusely diseased with multipl e tandem stenoses. There appears to be a short segment occlusion of the common femoral artery, with r econstitution of flow distally via collaterals, including prominent collaterals from the internal tacho ac artery. The superficial femoral artery is heavily diseased and likely occluded. Profunda femoris a rtery is patent with relatively mild disease throughout. Collaterals from profunda partially reconsti tute the popliteal artery which is diffusely diseased. Below the knee, there is significantly less at herosclerotic disease and there appears to be a patent three-vessel runoff to the ankle, however the vessels are diminutive. Dorsalis pedis appears most robust. Visualized pelvic contents show no clearly acute abnormalities. Unremarkable bladder. Prostate is min imally prominent with some parenchymal calcifications noted. Colonic diverticula are present without signs of diverticulitis. Generalized osteopenia. Moderate degenerative changes of the visualized lower lumbar spine, right mor e than left hip, bilateral knees, ankles, and proximal feet. No clearly acute bony abnormality. IMPRESSION 1. Diffuse moderate to severe mostly calcified atherosclerotic plaque throughout the bilateral lower extremities. 2. On the left, the visualized external iliac artery appears nonopacified consistent with occlusion, with some reconstitution of flow at the level of the common femoral artery. However there is diffuse disease with multiple tandem stenoses throughout the common femoral, superficial femoral, and profun da femoris arteries likely resulting in significant stenoses. Superficial femoral artery is diffusely diseased throughout. Popliteal artery appears patent but diminutive. Below the knee, there is signif icantly less atherosclerotic disease and there appears to be a patent three-vessel runoff to the ankl e, however the vessels are diminutive. Dorsalis pedis appears most robust. 3. On the right, the visualized external iliac artery appears patent but diffusely diseased with mul tiple tandem stenoses. There appears to be a short segment occlusion of the common femoral artery, wi th reconstitution of flow distally via collaterals, including prominent collaterals from the internal iliac artery. The superficial femoral artery is heavily diseased and likely occluded. Profunda femor is artery is patent with relatively mild disease throughout. Collaterals from profunda partially ludmila nstitute the popliteal artery which is diffusely diseased. Below the knee, there is significantly les s atherosclerotic disease and there appears to be a patent three-vessel runoff to the ankle, however the vessels are diminutive. Dorsalis pedis appears most robust.
--- NOTE | 2024-04-15 20:38 | P.HPIM ---
History of Present Illness H&P Date: 04/15/24 Chief Complaint: Right foot second toe gangrene very pleasant 84-year-old patient who follows with visiting physicians Henok Harvey. Chronic stable medical conditions include CAD with a previous [place], hypertension, hyperlipidemia asthma. is ex-smoker. Lives by himself. For about 4 weeks patient has been noticing increasing discomfort pain in the right foot second toe. Progressively getting worse. Also right foot is a bit swollen. Increased pain and tenderness. 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 Patient was due to see Dr. Oscar from vascular in couple of days. Because symptoms got worse decided to come to the ER. No fever no chills. Patient is found of gangrene changes in the right foot second toe. Dr. Oscar from vascular was consulted. I spoke to patient's daughter on the phone at the patient's bedside. Normally uses a scooter to get about including inside the house. Review of systems: GEN.: None EYES: None HEENT: None NECK: None RESPIRATORY: None CARDIOVASCULAR: No chest pain GASTROINTESTINAL: None GENITOURINARY: None MUSCULOSKELETAL: As above LYMPHATICS: None HEMATOLOGICAL: None PSYCHIATRY: None NEUROLOGICAL: None Social history: Patient smoked for 12 years stopped smoking age of 29. Smoked half a pack a day. 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 Lives alone Physical examination: VITAL SIGNS: 98.1, 85, 12, 154 x 69, 93% room air GENERAL: BMI 19.2, reclining bed awake not in distress EYES: Pupils equal. Conjunctiva normal HEENT: External appearance of nose and ears normal, oral cavity grossly normal. Decreased hearing NECK: JVD possibly raised; masses not palpable. HEART: First and second heart sounds are normal; edema present a. LUNGS: Respiratory rate normal; lungs clear. ABDOMEN: Soft, nontender, liver spleen not palpable, no masses palpable. PSYCH: Alert and oriented x3; mood and affect aditya l. MUSCULOSKELETAL:No Clubbing/cyanosis;muscles-grossly intact. OA LYMPHATICS: No lymph node palpable neck and axilla EXTREMITIES: She has shiny skin of the right foot. Swelling of the right foot. Gangrenous changes in the right foot second toe. Not really able to feel the dorsalis.'s pedis INVESTIGATIONS, reviewed in the clinical context: April 15, 2024: White count 14.2 hemoglobin 13.7 platelets 504 sodium 137 potassium 4.7 BUN 31 creatinine 1.14 lactic acid 2.1 CRP 3.1 EKG tracing personally reviewed by me-normal sinus rhythm. Nonspecific ST-T wave changes. Previous investigations 2D echocardiogram: [October 2023] EF 40%. Severely increased left ventricular systolic volume. Mild to moderate MR. Assessment plan: -Right foot second toe gangrene changes, with cellulitis. Likely from PAD IV cefepime. IV vancomycin. Consultation to vascular Dr. Oscar, and ID. Plan for amputation per vascular -Chronic congestive heart failure exacerbation, from systolic dysfunction EF 40% Aldactone 12.5 mg a day. Fluid restriction to 1500 cc a day. -Mild to moderate mitral regurgitation -Essential hypertension Lopressor 25 mg twice daily -Cognitive impairment. Aricept -Probable history of atrial fibrillation Xarelto-hold for now -Primary osteoarthritis Tylenol as needed -Chronic gait dysfunction, uses a scooter at baseline -Full code Care was discussed with the patient and daughter. Patient is a moderate risk from cardiovascular standpoint. No contraindications. Medically stable otherwise to proceed for surgery. Telemetry Past Medical History Past Medical History: Asthma, CVA/TIA, Hyperlipidemia, Hypertension, Myocardial Infarction ([place]) Additional Past Medical History / Comment(s): TIA-2012 R hand residual weakness Last Myocardial Infarction Date:: 2013 History of Any Multi-Drug Resistant Organisms: None Reported Past Surgical History: Cholecystectomy, Hernia Repair, Tonsillectomy Additional Past Surgical History / Comment(s): SUMANTH CATARACTS Past Anesthesia/Blood Transfusion Reactions: No Reported Reaction Past Psychological History: No Psychological Hx Reported Smoking Status: Never smoker Past Alcohol Use History: Rare Past Drug Use History: None Reported - Past Family History Mother Family Medical History: Cancer Father Family Medical History: Cancer Medications and Allergies Home Medications Medication Instructions Recorded Confirmed Type Latanoprost [Xalatan 0.005%] 1 drop BOTH EYES BID 06/25/16 04/15/24 History Aspirin EC [Ecotrin Low Dose] 81 mg PO DAILY 07/08/21 04/15/24 History Donepezil [Aricept] 10 mg PO DAILY 07/08/21 04/15/24 History Rivaroxaban [Xarelto] 2.5 mg PO BID 07/08/21 04/15/24 History Rosuvastatin Calcium 5 mg PO HS 06/29/22 04/15/24 History Brimonidine Tartrate [Alphagan P 1 drop BOTH EYES DAILY 10/17/23 04/15/24 History 0.2% Ophth Soln] Spironolactone [Aldactone] 12.5 mg PO DAILY #30 tab 10/20/23 04/15/24 Rx Pantoprazole Sodium [Protonix] 40 mg PO DAILY #30 tab 10/30/23 04/15/24 Rx Hydroxyurea [Hydrea] 500 mg PO DAILY 04/15/24 04/15/24 History Hydroxyurea [Hydrea] 500 mg PO MOTUWETHFR@2100 04/15/24 04/15/24 History Levofloxacin [Levaquin] 750 mg PO DIRECTED 04/15/24 04/15/24 History oxyCODONE-APAP 5-325MG [Percocet 1 tab PO DIRECTED 04/15/24 04/15/24 History 5-325 mg] Allergies Allergy/AdvReac Type Severity Reaction Status Date / Time codeine AdvReac Nausea & Verified 04/15/24 15:25 Vomiting furosemide [From Lasix] AdvReac Nausea & Verified 04/15/24 15:25 Vomiting Physical Exam Vitals: Vital Signs Temp Pulse Pulse Pulse Resp BP BP 04/15/24 20:03 154/69 04/15/24 20:00 98.1 F 85 12 1554/69 04/15/24 17:09 97.9 F 83 16 126/78 04/15/24 14:52 84 18 142/74 04/15/24 12:57 98.1 F 89 16 137/67 Pulse Ox 04/15/24 20:03 04/15/24 20:00 93 L 04/15/24 17:09 96 04/15/24 14:52 95 04/15/24 12:57 95 Intake and Output 04/15/24 04/15/24 04/15/24 06:59 14:59 22:59 Intake Total 450 Balance 450 Intake: Intake, IV Titration 450 Amount Vancomycin 1,000 mg In 200 Sodium Chloride 0.9% 250 ml @ 125 mls/hr IVPB ONCE STA Rx#:[id number] Vancomycin 1,000 mg In 250 Sodium Chloride 0.9% 250 ml @ 125 mls/hr IVPB Q24H [facility] Rx#:[id number] Other: Voiding Method Urinal Weight 60.781 kg 60.781 kg Results CBC & Chem 7: 04/15/24 13:16 04/15/24 13:16 Labs: Abnormal Lab Results - Last 24 Hours (Table) 04/15/24 04/15/24 04/15/24 Range/Units 13:16 13:16 14:12 WBC 14.2 H (3.8-10.6) k/uL RBC 3.51 L (4.30-5.90) m/uL MCV 116.8 H (80.0-100.0) fL MCH 39.1 H (25.0-35.0) pg RDW 19.4 H (11.5-15.5) % Plt Count 504 H (150-450) k/uL Neutrophils # (Manual) 12.35 H (1.3-7.7) k/uL Lymphocytes # (Manual) 0.71 L (1.0-4.8) k/uL Macrocytosis Marked A ESR 54 H (0-20) mm/Hr BUN 31 H (9-20) mg/dL Glucose 100 H (74-99) mg/dL Plasma Lactic Acid Naldo 2.1 H* (0.7-2.0) mmol/L Alkaline Phosphatase 130 H (38-126) U/L C-Reactive Protein 3.1 H (<1.0) mg/dL Thrombosis Risk Factor Assmnt - Choose All That Apply Any of the Below Risk Factors Present?: Yes Each Factor Represents 1 point: Swollen legs (current) Each Risk Factor Represents 2 Points: Patient confined to bed Each Risk Factor Represents 3 Points: Age 75 years or older Thrombosis Risk Factor Assessment Total Risk Factor Score: 6 Thrombosis Risk Factor Assessment Level: High Risk
[2024-04-15] MEDS: LATANOPROST 0.005% OPHTH DROPS 2.5 ML BTL BOTH EYES SCH (21:21)
[2024-04-15] MEDS: METOPROLOL TARTRATE 25 MG TAB PO SCH (21:21)
[2024-04-15] MEDS: ATORVASTATIN 10 MG TAB PO SCH (21:21)
[2024-04-15] MEDS: MELATONIN 5 MG TABLET PO SCH (21:22)
[2024-04-15] MEDS: HYDROXYUREA 500 MG CAP PO SCH (21:22)
[2024-04-16 04:38] LABS: African American GFR (CKD) 89 (>60 ml/min/1.73 sqM); Non-African American GFR(CKD) 77 (>60 ml/min/1.73 sqM)
--- NOTE | 2024-04-16 07:22 | P.CONS ---
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 Patient did present to the hospital on arrival to the ER patient was afebrile no fever has been recorded subsequently patient was nontachycardic hypotensive or hypoxic he did have white count of 14.2 with a left shift creatinine was normal lactic acid was 2.1 liver enzymes are normal CRP was 3.1 foot x-ray no evidence for acute fracture multifocal degenerative changes throughout the joints of the foot patient was started empirically on cefepime and vancomycin infectious disease was consulted for further management of antibiotic therapy Review of Systems Positive point and negatives has been mentioned in the HPI, complete review of systems was performed and all other systems are negative Past Medical History Past Medical History: Asthma, CVA/TIA, Hyperlipidemia, Hypertension, Myocardial Infarction ([place]) Additional Past Medical History / Comment(s): TIA-2012 R hand residual weakness Last Myocardial Infarction Date:: 2013 History of Any Multi-Drug Resistant Organisms: None Reported Past Surgical History: Cholecystectomy, Hernia Repair, Tonsillectomy Additional Past Surgical History / Comment(s): SUMANTH CATARACTS Past Anesthesia/Blood Transfusion Reactions: No Reported Reaction Past Psychological History: No Psychological Hx Reported Smoking Status: Never smoker Past Alcohol Use History: Rare Past Drug Use History: None Reported - Past Family History Mother Family Medical History: Cancer Father Family Medical History: Cancer Medications and Allergies Home Medications Medication Instructions Recorded Confirmed Type Latanoprost [Xalatan 0.005%] 1 drop BOTH EYES BID 06/25/16 04/15/24 History Aspirin EC [Ecotrin Low Dose] 81 mg PO DAILY 07/08/21 04/15/24 History Donepezil [Aricept] 10 mg PO DAILY 07/08/21 04/15/24 History Rivaroxaban [Xarelto] 2.5 mg PO BID 07/08/21 04/15/24 History Rosuvastatin Calcium 5 mg PO HS 06/29/22 04/15/24 History Brimonidine Tartrate [Alphagan P 1 drop BOTH EYES DAILY 10/17/23 04/15/24 History 0.2% Ophth Soln] Spironolactone [Aldactone] 12.5 mg PO DAILY #30 tab 10/20/23 04/15/24 Rx Pantoprazole Sodium [Protonix] 40 mg PO DAILY #30 tab 10/30/23 04/15/24 Rx Hydroxyurea [Hydrea] 500 mg PO DAILY 04/15/24 04/15/24 History Hydroxyurea [Hydrea] 500 mg PO MOTUWETHFR@2100 04/15/24 04/15/24 History Levofloxacin [Levaquin] 750 mg PO DIRECTED 04/15/24 04/15/24 History oxyCODONE-APAP 5-325MG [Percocet 1 tab PO DIRECTED 04/15/24 04/15/24 History 5-325 mg] Allergies Allergy/AdvReac Type Severity Reaction Status Date / Time codeine AdvReac Nausea & Verified 04/15/24 15:25 Vomiting furosemide [From Lasix] AdvReac Nausea & Verified 04/15/24 15:25 Vomiting Physical Exam Vitals: Vital Signs Temp Pulse Resp BP Pulse Ox 04/15/24 14:52 84 18 142/74 95 04/15/24 12:57 98.1 F 89 16 137/67 95 Intake and Output 04/15/24 04/15/24 04/15/24 06:59 14:59 22:59 Other: Weight 60.781 kg GENERAL DESCRIPTION: Elderly male lying in bed, no distress. No tachypnea or accessory muscle of respiration use. HEENT: Shows Pallor , no scleral icterus. Oral mucous membrane is dry. No phary ngeal erythema or thrush NECK: Trachea central, no thyromegaly. LUNGS: Unlabored breathing. Clear to auscultation anteriorly. No wheeze or crackle. HEART: S1, S2, regular rate and rhythm. No loud murmur ABDOMEN: Soft, no tenderness , guarding or rigidity, no organomegaly EXTREMITIES: Right second toe with blackish discoloration no open wound or any foul-smelling drainage SKIN: No rash, no masses palpable. NEUROLOGICAL: The patient is awake, alert, oriented x3, mood and affect normal. Results CBC & Chem 7: 04/15/24 13:16 04/16/24 03:29 Labs: Abnormal Lab Results - Last 24 Hours (Table) 04/15/24 04/15/24 04/15/24 Range/Units 13:16 13:16 14:12 WBC 14.2 H (3.8-10.6) k/uL RBC 3.51 L (4.30-5.90) m/uL MCV 116.8 H (80.0-100.0) fL MCH 39.1 H (25.0-35.0) pg RDW 19.4 H (11.5-15.5) % Plt Count 504 H (150-450) k/uL Neutrophils # (Manual) 12.35 H (1.3-7.7) k/uL Lymphocytes # (Manual) 0.71 L (1.0-4.8) k/uL Macrocytosis Marked A BUN 31 H (9-20) mg/dL Glucose 100 H (74-99) mg/dL Plasma Lactic Acid Naldo 2.1 H* (0.7-2.0) mmol/L Alkaline Phosphatase 130 H (38-126) U/L C-Reactive Protein 3.1 H (<1.0) mg/dL Assessment and Plan (1) Cellulitis of right foot Current Visit: Yes Status: Acute Code(s): L03.115 - CELLULITIS OF RIGHT LOWER LIMB SNOMED Code(s): 66574984802863087 (2) Gangrene of toe of right foot Current Visit: Yes Status: Acute Code(s): I96 - GANGRENE, NOT ELSEWHERE CLASSIFIED SNOMED Code(s): 62425186272199818 (3) Leukocytosis Current Visit: No Status: Chronic Priority: Medium Code(s): D72.829 - ELEVATED WHITE BLOOD CELL COUNT, UNSPECIFIED SNOMED Code(s): 975589446 Plan: 1patient presented to hospital with blackish discoloration to his right second toe and this patient apparently has been dealing with a nonhealing wound to the area for couple weeks and seem to have failed outpatient oral antibiotic therapy concerning for gangrene did have elevated white count possible component of secondary bacterial infection not entirely excluded and need to cover for gram- positive skin mark as well as gram-negative pathogen 2await surgical evaluation for possible debridement versus amputation and deep culture 3vancomycin pharmacy to dose target trough of 15 while watching kidney function and Vanco trough closely and cefepime for more adequate antibiotic coverage empirically We will follow on clinical condition and cultures to further adjust medication if needed Thank you for this consultation we will follow the patient along with you Dictation was produced using Ant[employer] dictation software. please excuse any grammatical, word or spelling errors. Time with Patient: Greater than 30
[2024-04-16] MEDS: SPIRONOLACTONE 25 MG TAB PO SCH (08:36)
[2024-04-16] MEDS: DONEPEZIL 10 MG TAB PO SCH (08:37)
[2024-04-16] MEDS: PANTOPRAZOLE 40 MG TABLET PO SCH (08:37)
[2024-04-16] MEDS: HYDROXYUREA 500 MG CAP PO SCH (08:37)
[2024-04-16] MEDS: ASPIRIN 81 MG PO SCH (08:37)
[2024-04-16] MEDS: BRIMONIDINE TARTRATE 0.2% DROPS 5 ML BTL BOTH EYES SCH (11:00)
[2024-04-16] MEDS: EMPTY BAG 1 BAG with SODIUM CHLORIDE 0.9% 1,000 ML IV SCH (12:28)
--- NOTE | 2024-04-16 16:56 | P.PN ---
Progress Note - Text 84-year-old gentleman patient came to the ER with right foot second toe gangrene changes. Patient is scheduled to have a right leg angiogram tomorrow by Dr. Rinaldi after that patient will need second toe ray amputation discussed with the patient and the daughter
[2024-04-16] MEDS: VANCOMYCIN 1,000 MG in SODIUM CHLORIDE 0.9% 250 ML IVPB SCH (17:47)
--- NOTE | 2024-04-16 20:09 | P.PN ---
Progress Note - Text Progress Note Date: 04/16/24 Chief Complaint: Right foot second toe gangrene very pleasant 84-year-old patient who follows with visiting physicians Henok Harvey. Chronic stable medical conditions include CAD with a previous MS, hypertension, hyperlipidemia asthma. is ex-smoker. Lives by himself. For about 4 weeks patient has been noticing increasing discomfort pain in the right foot second toe. Progressively getting worse. Also right foot is a bit swollen. Increased pain and tenderness. Patient was following with the foot and ankle medieval english literature professor. Patient was due to see Dr. Oscar from vascular in couple of days. Because symptoms got worse decided to come to the ER. No fever no chills. Patient is found of gangrene changes in the right foot second toe. Dr. Oscar from vascular was consulted. I spoke to patient's daughter on the phone at the patient's bedside. Normally uses a scooter to get about including inside the house. April 16: Saw the patient this morning. Sitting at the edge of the bed. On IV cefepime and vancomycin.Results of lower extremity CTA noted. Patient will be undergoing angiogram by Dr. Bell tomorrow. N.p.o. after midnight. Some pain at the affected foot. Active Medications Acetaminophen (Acetaminophen Tab 325 Mg Tab) 650 mg PO Q6HR PRN PRN Reason: Mild Pain or Fever > 100.5 Hydrocodone Bitart/Acetaminophen (Hydrocodone/Apap 5-325mg 1 Each Tab) 1 each PO Q4HR PRN PRN Reason: Moderate Pain (Scale 4 to 6) Last Admin: 04/16/24 16:37 Dose: 1 each Aspirin (Aspirin 81 Mg) 81 mg PO DAILY [facility] Last Admin: 04/16/24 08:37 Dose: 81 mg Atorvastatin Calcium (Atorvastatin 10 Mg Tab) 10 mg PO HS [facility] Last Admin: 04/15/24 21:21 Dose: 10 mg Brimonidine Tartrate (Brimonidine Tartrate 0.2% Drops 5 Ml Btl) 1 drops BOTH EYES DAILY [facility] Last Admin: 04/16/24 11:00 Dose: 1 drops Donepezil HCl (Donepezil 10 Mg Tab) 10 mg PO DAILY [facility] Last Admin: 04/16/24 08:37 Dose: 10 mg Hydroxyurea (Hydroxyurea 500 Mg Cap) 500 mg PO DAILY [facility] Last Admin: 04/16/24 08:37 Dose: 500 mg Hydroxyurea (Hydroxyurea 500 Mg Cap) 500 mg PO MOTUWETHFR@2100 [facility] Last Admin: 04/15/24 21:22 Dose: 500 mg Cefepime HCl 2 gm/ Sodium (Chloride) 100 mls @ 200 mls/hr IVPB Q12H [facility] Last Admin: 04/16/24 14:11 Dose: 200 mls/hr Vancomycin HCl 1,000 mg/ (Sodium Chloride) 250 mls @ 125 mls/hr IVPB Q24H [facility] Last Admin: 04/16/24 17:47 Dose: 125 mls/hr Heparin Sodium (Porcine) 10, (000 unit/ Sodium Chloride) 1,001 mls @ 999 mls/hr IRRIGATION ONCE PRN PRN Reason: INTRA-OP Stop: 04/17/24 23:00 Heparin Sodium (Porcine) 2,500 (unit/ Sodium Chloride) 250.5 mls @ 250 mls/hr IRRIGATION ONCE PRN PRN Reason: INTRA-OP Stop: 04/17/24 23:00 Sodium Chloride 1,000 ml/ IV (Solution) 1,000 mls @ 60.781 mls/hr IV .[id number] [facility] Last Admin: 04/16/24 13:08 Dose: Not Given Latanoprost (Latanoprost 0.005% Ophth Drops 2.5 Ml Btl) 1 drops BOTH EYES BID [facility] Last Admin: 04/16/24 11:01 Dose: 1 drops Melatonin (Melatonin 5 Mg Tablet) 5 mg PO HS [facility] Last Admin: 04/15/24 21:22 Dose: 5 mg Metoprolol Tartrate (Metoprolol Tartrate 25 Mg Tab) 25 mg PO BID [facility] Last Admin: 04/16/24 08:37 Dose: 25 mg Morphine Sulfate (Morphine Sulfate 2 Mg/Ml Syringe) 2 mg IVP Q4HR PRN PRN Reason: Pain/Discomfort Naloxone HCl (Naloxone 0.4 Mg/Ml 1 Ml Vial) 0.2 mg IV Q2M PRN PRN Reason: Opioid Reversal Ondansetron HCl (Ondansetron 4 Mg/2 Ml Vial) 4 mg IVP Q8HR PRN PRN Reason: Nausea And Vomiting Pantoprazole Sodium (Pantoprazole 40 Mg Tablet) 40 mg PO AC-BRKFST [facility] Last Admin: 04/16/24 08:37 Dose: 40 mg Spironolactone (Spironolactone 25 Mg Tab) 12.5 mg PO DAILY [facility] Last Admin: 04/16/24 08:36 Dose: 12.5 mg Social history: Patient smoked for 12 years stopped smoking age of 29. Smoked half a pack a day. 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 Lives alone Physical examination: VITAL SIGNS: 97.8, 65, 15, 128/68, 96% room air GENERAL: Sitting at the edge of the bed EYES: Pupils equal. Conjunctiva normal HEENT: External appearance of nose and ears normal, oral cavity grossly normal. Decreased hearing NECK: JVD possibly raised; masses not palpable. HEART: First and second heart sounds are normal; edema present a. LUNGS: Respiratory rate normal; lungs clear. ABDOMEN: Soft, nontender, liver spleen not palpable, no masses palpable. PSYCH: Alert and oriented x3; mood and affect aditya l. MUSCULOSKELETAL:No Clubbing/cyanosis;muscles-grossly intact. OA LYMPHATICS: No lymph node palpable neck and axilla EXTREMITIES: shiny skin of the right foot. Swelling of the right foot. Gangrenous changes in the right foot second toe. Not really able to feel the dorsalis.'s pedis INVESTIGATIONS, reviewed in the clinical context: April 16: Creatinine 0.91 April 15, 2024: White count 14.2 hemoglobin 13.7 platelets 504 sodium 137 potassium 4.7 BUN 31 creatinine 1.14 lactic acid 2.1 CRP 3.1 EKG tracing personally reviewed by me-normal sinus rhythm. Nonspecific ST-T wave changes. Previous investigations 2D echocardiogram: [October 2023] EF 40%. Severely increased left ventricular systolic volume. Mild to moderate MR. Assessment plan: -Right foot second toe gangrene changes, with cellulitis. Likely from PAD: Not improving IV cefepime. IV vancomycin. Patient being followed by vascular Dr. Oscar and Dr. Bell will do an angiogram tomorrow -Chronic congestive heart failure exacerbation, from systolic dysfunction EF 40% Aldactone 12.5 mg a day. Fluid restriction to 1500 cc a day. -Mild to moderate mitral regurgitation -Essential hypertension Lopressor 25 mg twice daily -Cognitive impairment. Aricept -Probable history of atrial fibrillation Xarelto-hold for now -Primary osteoarthritis Tylenol as needed -Chronic gait dysfunction, uses a scooter at baseline -Full code Discussed with patient. Dr. Oscar. Current medications to continue. For intervention by Dr. Bell tomorrow. Past Medical History Past Medical History: Asthma, CVA/TIA, Hyperlipidemia, Hypertension, Myocardial Infarction (MS) Additional Past Medical History / Comment(s): TIA-2013 R hand residual weakness Last Myocardial Infarction Date:: 2013 History of Any Multi-Drug Resistant Organisms: None Reported Past Surgical History: Cholecystectomy, Hernia Repair, Tonsillectomy Additional Past Surgical History / Comment(s): SUMANTH CATARACTS Past Anesthesia/Blood Transfusion Reactions: No Reported Reaction Past Psychological History: No Psychological Hx Reported Smoking Status: Never smoker Past Alcohol Use History: Rare Past Drug Use History: None Reported
[2024-04-17] MEDS ORDERED: HEPARIN SODIUM,PORCINE 10,000 UNIT in SODIUM CHLORIDE 0.9% 1,000 ML IRRIGATION PRN (07:00)
[2024-04-17] MEDS ORDERED: HEPARIN SODIUM,PORCINE (1 ML) 2,500 UNIT in SODIUM CHLORIDE 0.9% 250 ML IRRIGATION PRN (07:00)
[2024-04-17 07:02] LABS: Anisocytosis Slight; Basophils # (A) 0.1 k/uL (0-0.2); Basophils % (A) 1 %; Eosinophils # (A) 0.3 k/uL (0-0.7); Eosinophils % (A) 2 %; HCT 40.3 % (39.0-53.0); HGB 12.6 gm/dL (13.0-17.5); Hypochromasia Marked; Lymphocytes # (A) 1.1 k/uL (1.0-4.8); Lymphocytes % (A) 8 %; MCH 37.7 pg (25.0-35.0); MCHC 31.2 g/dL (31.0-37.0); Macrocytosis Marked; Mean Platelet Volume 10.3; Monocytes # (A) 0.4 k/uL (0-1.0); Monocytes % (A) 3 %; Neutrophils # (A) 11.7 k/uL (1.3-7.7); Neutrophils % (A) 85 %; Platelet Count 378 k/uL (150-450); RBC 3.33 m/uL (4.30-5.90); RDW 19.5 % (11.5-15.5); WBC 13.7 k/uL (3.8-10.6)
[2024-04-17 07:04] LABS: MCV 120.9 fL (80.0-100.0)
[2024-04-17 07:11] LABS: ALT 23 U/L (4-49); AST 58 U/L (17-59); African American GFR (CKD) >90 (>60 ml/min/1.73 sqM); Albumin 3.1 g/dL (3.5-5.0); Alkaline Phosphatase 94 U/L (38-126); Anion Gap 8 mmol/L; Blood Urea Nitrogen 28 mg/dL (9-20); Calcium 8.8 mg/dL (8.4-10.2); Carbon Dioxide 25 mmol/L (22-30); Chloride 102 mmol/L (98-107); Glucose 92 mg/dL (74-99); Non-African American GFR(CKD) 79 (>60 ml/min/1.73 sqM); Potassium 4.8 mmol/L (3.5-5.1); Sodium 135 mmol/L (137-145); Total Protein 5.9 g/dL (6.3-8.2)
--- NOTE | 2024-04-17 08:33 | P.PN ---
Subjective Progress Note Date: 04/16/24 Principal diagnosis: Reason for follow-up is right second toe gangrene Patient is a 84-year-old male with a past medical history significant for hypertension hyperlipidemia [place] CVA TIA asthma presenting to the hospital for evaluation of right second toe wound, patient be diagnosed with right second toe gangrene prompted this consultation. On today's evaluation there is 04/16/2024, Patient is afebrile this morning patient denies having any chest pain shortness of breath or cough, the patient is breathing comfortably and currently on room air, patient denies any abdominal pain no diarrhea no nausea no vomiting, denies any worsening pain to the right second toe. Patient did have a creatinine 0.91 lactic acid 1.4 local cultures pending Objective - Vital Signs Vital signs: Vital Signs Temp 97.8 F 04/16/24 12:45 Pulse 65 04/16/24 12:45 Resp 15 04/16/24 12:45 BP 128/68 04/16/24 12:45 Pulse Ox 96 04/16/24 12:45 FiO2 Intake & Output 04/15/24 04/16/24 04/16/24 18:59 06:59 18:59 Intake Total 450 100 358 Output Total 325 200 Balance 450 -225 158 Weight 60.781 kg 60.781 kg Intake: Intake, IV Titration 450 100 Amount Cefepime 2 gm In Sodium 100 Chloride 0.9% 100 ml @ 200 mls/hr IVPB Q12H [facility] Rx#:[id number] Vancomycin 1,000 mg In 200 Sodium Chloride 0.9% 250 ml @ 125 mls/hr IVPB ONCE [facility] Rx#:[id number] Vancomycin 1,000 mg In 250 Sodium Chloride 0.9% 250 ml @ 125 mls/hr IVPB Q24H [facility] Rx#:[id number] Oral 358 Output: Urine 325 200 Other: Voiding Method Urinal Urinal Urinal - Exam GENERAL DESCRIPTION: An elderly male lying in bed in no distress RESPIRATORY SYSTEM: Unlabored breathing , decreased breath sounds at bases HEART: S1 S2 regular rate and rhythm , ABDOMEN: Soft , no tenderness EXTREMITIES: Right second toe dorsal nail with black discoloration - Labs CBC & Chem 7: 04/15/24 13:16 04/16/24 03:29 Labs: Abnormal Lab Results - Last 24 Hours (Table) 04/15/24 Range/Units 13:16 ESR 54 H (0-20) mm/Hr Microbiology - Last 24 Hours (Table) 04/15/24 13:34 Gram Stain - Preliminary Foot - Right Assessment and Plan (1) Cellulitis of right foot Current Visit: Yes Status: Acute Code(s): L03.115 - CELLULITIS OF RIGHT LOWER LIMB SNOMED Code(s): 38730236218798762 (2) Gangrene of toe of right foot Current Visit: Yes Status: Acute Code(s): I96 - GANGRENE, NOT ELSEWHERE CLASSIFIED SNOMED Code(s): 95577216003044676 (3) Leukocytosis Current Visit: No Status: Chronic Priority: Medium Code(s): D72.829 - ELEVATED WHITE BLOOD CELL COUNT, UNSPECIFIED SNOMED Code(s): 681500117 Plan: 1patient presented to hospital with blackish discoloration to his right second toe and this patient apparently has been dealing with a nonhealing wound to the area for couple weeks and seem to have failed outpatient oral antibiotic therapy concerning for gangrene did have elevated white count possible component of secondary bacterial infection not entirely excluded and need to cover for gram- positive skin mark as well as gram-negative pathogen 2patient has been evaluated by vascular surgery vascular workup is in progress may need amputation 3local cultures obtained which are currently pending to continue vancomycin pharmacy to dose target trough of 15 while watching kidney function and Vanco trough closely and cefepime while waiting for the culture to finalize Dictation was produced using [employer] dictation software. please excuse any grammatical, word or spelling errors. Time with Patient: Less than 30
--- NOTE | 2024-04-17 13:08 | P.PN ---
Subjective Progress Note Date: 04/17/24 Principal diagnosis: Reason for follow-up is right second toe gangrene Patient is a 84-year-old male with a past medical history significant for hypertension hyperlipidemia [place] CVA TIA asthma presenting to the hospital for evaluation of right second toe wound, patient be diagnosed with right second toe gangrene prompted this consultation. On today's evaluation there is 04/17/2024,the patient denies any fever or any chills, patient is breathing comfortably on room air, the patient denies chest pain shortness of breath and no significant cough, patient denies abdominal pain, no nausea vomiting or diarrhea. Pain to the right foot is currently controlled. Patient white count is 13.7 creatinine 0.88 foot culture growing Pseudomonas aeruginosa lower extremity CTA did show diffuse moderate to severe atherosclerotic plaque throughout bilateral lower extremity Objective - Vital Signs Vital signs: Vital Signs Temp 98 F 04/17/24 12:00 Pulse 73 04/17/24 12:06 Resp 18 04/17/24 12:06 BP 118/67 04/17/24 12:00 Pulse Ox 98 04/17/24 12:00 FiO2 Intake & Output 04/16/24 04/17/24 04/17/24 18:59 06:59 18:59 Intake Total 608 Output Total 200 400 Balance 408 -400 Weight 60.781 kg 59.6 kg Intake: Intake, IV Titration 250 Amount Vancomycin 1,000 mg In 250 Sodium Chloride 0.9% 250 ml @ 125 mls/hr IVPB Q24H [facility] Rx#:[id number] Oral 358 Output: Urine 200 400 Other: Voiding Method Urinal Toilet Urinal - Exam GENERAL DESCRIPTION: An elderly male lying in bed in no distress RESPIRATORY SYSTEM: Unlabored breathing , decreased breath sounds at bases HEART: S1 S2 regular rate and rhythm , ABDOMEN: Soft , no tenderness EXTREMITIES: Right second toe dorsal nail with black discoloration - Labs CBC & Chem 7: 04/17/24 06:11 04/17/24 06:11 Labs: Abnormal Lab Results - Last 24 Hours (Table) 04/17/24 04/17/24 Range/Units 06:11 06:11 WBC 13.7 H (3.8-10.6) k/uL RBC 3.33 L (4.30-5.90) m/uL Hgb 12.6 L (13.0-17.5) gm/dL MCV 120.9 H (80.0-100.0) fL MCH 37.7 H (25.0-35.0) pg RDW 19.5 H (11.5-15.5) % Neutrophils # 11.7 H (1.3-7.7) k/uL Macrocytosis Marked A Sodium 135 L (137-145) mmol/L BUN 28 H (9-20) mg/dL Total Protein 5.9 L (6.3-8.2) g/dL Albumin 3.1 L (3.5-5.0) g/dL Microbiology - Last 24 Hours (Table) 04/15/24 13:34 Gram Stain - Preliminary Foot - Right Wound Culture - Preliminary Pseudomonas aeruginosa 04/15/24 16:20 Blood Culture - Preliminary Blood Assessment and Plan (1) Cellulitis of right foot Current Visit: Yes Status: Acute Code(s): L03.115 - CELLULITIS OF RIGHT LOWER LIMB SNOMED Code(s): 01806001136894436 (2) Gangrene of toe of right foot Current Visit: Yes Status: Acute Code(s): I96 - GANGRENE, NOT ELSEWHERE CLASSIFIED SNOMED Code(s): 63168750174753729 (3) Leukocytosis Current Visit: No Status: Chronic Priority: Medium Code(s): D72.829 - ELEVATED WHITE BLOOD CELL COUNT, UNSPECIFIED SNOMED Code(s): 390775389 Plan: 1patient presented to hospital with blackish discoloration to his right second toe and this patient apparently has been dealing with a nonhealing wound to the area for couple weeks and seem to have failed outpatient oral antibiotic therapy concerning for gangrene did have elevated white count possible component of secondary bacterial infection not entirely excluded and need to cover for gram- positive skin mark as well as gram-negative pathogen 2patient has been evaluated by vascular surgery vascular did have lower extremity angiogram concerning for diffuse disease Dr. Bañuelos has been consulted for possible intervention 3local cultures currently growing Pseudomonas we will continue cefepime and discontinue vancomycin Family the bedside questions answered Dictation was produced using [employer] dictation software. please excuse any grammatical, word or spelling errors. Time with Patient: Less than 30
--- NOTE | 2024-04-17 14:22 | P.PN ---
Progress Note - Text Progress Note Date: 04/17/24 Chief Complaint: Right foot second toe gangrene very pleasant 84-year-old patient who follows with visiting physicians Henok Harvey. Chronic stable medical conditions include CAD with a previous HI, hypertension, hyperlipidemia asthma. is ex-smoker. Lives by himself. For about 4 weeks patient has been noticing increasing discomfort pain in the right foot second toe. Progressively getting worse. Also right foot is a bit swollen. Increased pain and tenderness. Patient was following with the foot and ankle rn nicu. Patient was due to see Dr. Oscar from vascular in couple of days. Because symptoms got worse decided to come to the ER. No fever no chills. Patient is found of gangrene changes in the right foot second toe. Dr. Oscar from vascular was consulted. I spoke to patient's daughter on the phone at the patient's bedside. Normally uses a scooter to get about including inside the house. April 16: Saw the patient this morning. Sitting at the edge of the bed. On IV cefepime and vancomycin.Results of lower extremity CTA noted. Patient will be undergoing angiogram by Dr. Bell tomorrow. N.p.o. after midnight. Some pain at the affected foot. April 17: Patient continues with IV cefepime IV vancomycin. Family at the bedside. Seen this morning. Due for angiogram by Dr. Bell this afternoon. Further course of action depending on the same. Wound culture growing Pseudomonas. Blood cultures negative till now Active Medications Acetaminophen (Acetaminophen Tab 325 Mg Tab) 650 mg PO Q6HR PRN PRN Reason: Mild Pain or Fever > 100.5 Hydrocodone Bitart/Acetaminophen (Hydrocodone/Apap 5-325mg 1 Each Tab) 1 each PO Q4HR PRN PRN Reason: Moderate Pain (Scale 4 to 6) Last Admin: 04/17/24 04:15 Dose: 1 each Aspirin (Aspirin 81 Mg) 81 mg PO DAILY [facility] Last Admin: 04/17/24 08:35 Dose: 81 mg Atorvastatin Calcium (Atorvastatin 10 Mg Tab) 10 mg PO HS [facility] Last Admin: 04/16/24 21:05 Dose: 10 mg Brimonidine Tartrate (Brimonidine Tartrate 0.2% Drops 5 Ml Btl) 1 drops BOTH EYES DAILY [facility] Last Admin: 04/17/24 08:41 Dose: 1 drops Donepezil HCl (Donepezil 10 Mg Tab) 10 mg PO DAILY [facility] Last Admin: 04/17/24 08:35 Dose: 10 mg Hydroxyurea (Hydroxyurea 500 Mg Cap) 500 mg PO DAILY [facility] Last Admin: 04/17/24 08:35 Dose: 500 mg Hydroxyurea (Hydroxyurea 500 Mg Cap) 500 mg PO MOTUWETHFR@2100 [facility] Last Admin: 04/16/24 21:05 Dose: 500 mg Cefepime HCl 2 gm/ Sodium (Chloride) 100 mls @ 200 mls/hr IVPB Q12H [facility] Last Admin: 04/17/24 04:07 Dose: 200 mls/hr Heparin Sodium (Porcine) 10, (000 unit/ Sodium Chloride) 1,001 mls @ 999 mls/hr IRRIGATION ONCE PRN PRN Reason: INTRA-OP Stop: 04/17/24 23:00 Heparin Sodium (Porcine) 2,500 (unit/ Sodium Chloride) 250.5 mls @ 250 mls/hr IRRIGATION ONCE PRN PRN Reason: INTRA-OP Stop: 04/17/24 23:00 Sodium Chloride 1,000 ml/ IV (Solution) 1,000 mls @ 60.781 mls/hr IV .[id number] [facility] Last Admin: 04/17/24 14:11 Dose: Not Given Latanoprost (Latanoprost 0.005% Ophth Drops 2.5 Ml Btl) 1 drops BOTH EYES BID [facility] Last Admin: 04/17/24 08:41 Dose: 1 drops Melatonin (Melatonin 5 Mg Tablet) 5 mg PO HS [facility] Last Admin: 04/16/24 21:05 Dose: 5 mg Metoprolol Tartrate (Metoprolol Tartrate 25 Mg Tab) 25 mg PO BID [facility] Last Admin: 04/17/24 08:36 Dose: 25 mg Morphine Sulfate (Morphine Sulfate 2 Mg/Ml Syringe) 2 mg IVP Q4HR PRN PRN Reason: Pain/Discomfort Naloxone HCl (Naloxone 0.4 Mg/Ml 1 Ml Vial) 0.2 mg IV Q2M PRN PRN Reason: Opioid Reversal Ondansetron HCl (Ondansetron 4 Mg/2 Ml Vial) 4 mg IVP Q8HR PRN PRN Reason: Nausea And Vomiting Pantoprazole Sodium (Pantoprazole 40 Mg Tablet) 40 mg PO AC-BRKFST [facility] Last Admin: 04/17/24 04:07 Dose: 40 mg Spironolactone (Spironolactone 25 Mg Tab) 12.5 mg PO DAILY [facility] Last Admin: 04/17/24 08:36 Dose: 12.5 mg Social history: Patient smoked for 12 years stopped smoking age of 29. Smoked half a pack a day. 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 Conjunctiva normal HEENT: External appearance of nose and ears normal, oral cavity grossly normal. Decreased hearing NECK: JVD possibly raised; masses not palpable. HEART: First and second heart sounds are normal; edema present a. LUNGS: Respiratory rate normal; lungs clear. ABDOMEN: Soft, nontender, liver spleen not palpable, no masses palpable. PSYCH: Alert and oriented x3; mood and affect aditya l. MUSCULOSKELETAL:No Clubbing/cyanosis;muscles-grossly intact. OA LYMPHATICS: No lymph node palpable neck and axilla EXTREMITIES: shiny skin of the right foot. Swelling of the right foot. Gangrenous changes in the right foot second toe. Not really able to feel the dorsalis.'s pedis INVESTIGATIONS, reviewed in the clinical context: Wound culture: Pseudomonas aeruginosa April 17: White count 13.7 hemoglobin 12.6 potassium 4.8 creatinine 0.88 April 16: Creatinine 0.91 April 15, 2024: White count 14.2 hemoglobin 13.7 platelets 504 sodium 137 potassium 4.7 BUN 31 creatinine 1.14 lactic acid 2.1 CRP 3.1 EKG tracing personally reviewed by me-normal sinus rhythm. Nonspecific ST-T wave changes. Previous investigations 2D echocardiogram: [October 2023] EF 40%. Severely increased left ventricular systolic volume. Mild to moderate MR. Assessment plan: -Right foot second toe gangrene changes, with cellulitis. Likely from PAD: Not improving IV cefepime. IV vancomycin. Patient being followed by vascular Dr. Oscar. Dr. Bell will do an angiogram this afternoon -Chronic congestive heart failure exacerbation, from systolic dysfunction EF 40% Aldactone 12.5 mg a day. Fluid restriction to 1500 cc a day. -Mild to moderate mitral regurgitation -Essential hypertension Lopressor 25 mg twice daily -Cognitive impairment. Aricept -Probable history of atrial fibrillation Xarelto-hold for now -Primary osteoarthritis Tylenol as needed -Chronic gait dysfunction, uses a scooter at baseline -Full code Discussed with patient and family at the bedside. Awaiting angiogram this afternoon. Past Medical History Past Medical History: Asthma, CVA/TIA, Hyperlipidemia, Hypertension, Myocardial Infarction (HI) Additional Past Medical History / Comment(s): TIA-2012 R hand residual weakness Last Myocardial Infarction Date:: 2013 History of Any Multi-Drug Resistant Organisms: None Reported Past Surgical History: Cholecystectomy, Hernia Repair, Tonsillectomy Additional Past Surgical History / Comment(s): SUMANTH CATARACTS Past Anesthesia/Blood Transfusion Reactions: No Reported Reaction Past Psychological History: No Psychological Hx Reported Smoking Status: Never smoker Past Alcohol Use History: Rare Past Drug Use History: None Reported
[2024-04-17] MEDS ORDERED: LIDOCAINE 1% INJ 10MG/ML (20 ML MDV) ONE (17:36)
[2024-04-17] MEDS ORDERED: fentaNYL (PF) 50 MCG/ML 2 ML AMP ONE (17:52)
[2024-04-17] MEDS: fentaNYL (PF) 50 MCG/1 ML VIAL IVP ONE (18:02)
[2024-04-17] MEDS: MIDAZOLAM 2 MG/2 ML VIAL IVP ONE (18:02)
[2024-04-17] MEDS: SODIUM CHLORIDE 0.9% 1,000 ML IV ONE (18:04)
[2024-04-17] MEDS: LIDOCAINE 1% INJ 10MG/ML (20 ML MDV) SQ ONE (18:04)
[2024-04-17] MEDS ORDERED: VERAPAMIL 2.5 MG/ML 2 ML AMP ONE (18:15)
[2024-04-17] MEDS ORDERED: MORPHINE SULFATE 4 MG/ML SYRINGE ONE (18:47)
[2024-04-17] MEDS ORDERED: NALOXONE 0.4 MG/ML 1 ML VIAL IVP PRN (18:47)
[2024-04-17] MEDS: IOPAMIDOL-370 200ML BTL INJ ONE (18:52)
[2024-04-17] MEDS: MORPHINE SULFATE 4 MG/ML SYRINGE IVP ONE (18:52)
--- NOTE | 2024-04-17 18:52 | P.PCN ---
Date of Procedure: 04/17/24 Operative Findings: AN ABDOMINAL AORTOGRAM AND BILATERAL LOWER EXTREMITIES RUNOFF PERFORMING PHYSICIAN: Yonathan Bell MD PROCEDURE PERFORMED: 1. An abdominal aortogram 2. Bilateral lower extremities runoff 3. Ultrasound-guided access of the right brachial artery INDICATION: Critical limb ischemia COMPLICATION: None LEVEL OF SEDATION: Moderate was sedation length of moderate to sedation length of 34 minutes APPROACH: Right common femoral artery PROCEDURE DESCRIPTION: After obtaining informed consent and explaining the procedure benefits, risks, and complications, the patient was brought to the cardiac lab systems analyst. Attempting accessing the right common femoral artery and left common femoral artery was unsuccessful and also attempting accessing the right radial artery was unsuccessful. With that being said I was able to access the right brachial artery using micropuncture technique under ultrasound guidance and micropuncture wire passed easily then I placed a 6 Divehi 11 cm sheath at the right brachial artery. Subsequently I did an angiogram using 6 Divehi pigtail catheter which was initially placed above the aortic bifurcation. The procedure was performed using ball injection with digital subtraction. The patient tolerated the procedure very well The procedure was completed and there was no complications. SELECTIVE PERIPHERAL ANGIOGRAM: The abdominal aorta: Calcified The common iliac arteries: The right common iliac artery has mild to moderate disease. The left common il iac artery is occluded by the ostium The external iliac arteries: The right external iliac artery appears to have mild to moderate disease in the left external iliac artery was not opacified The internal iliac arteries: The right internal iliac artery appears to be patent and gives collateral appeared to be ipsilateral and contralateral. 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
[2024-04-17] MEDS: SODIUM CHLORIDE 0.9% 1,000 ML in EMPTY BAG 1 BAG IV SCH (20:48)
[2024-04-18 08:08] LABS: African American GFR (CKD) >90 (>60 ml/min/1.73 sqM); Non-African American GFR(CKD) 86 (>60 ml/min/1.73 sqM)
[2024-04-18] MEDS ORDERED: MIDAZOLAM 2 MG/2 ML VIAL ONE (12:09)
[2024-04-18] MEDS ORDERED: LIDOCAINE 1% INJ 10MG/ML (20 ML MDV) ONE (12:09)
[2024-04-18] MEDS ORDERED: ONDANSETRON 4 MG/2 ML VIAL ONE (12:09)
[2024-04-18] MEDS ORDERED: fentaNYL (PF) 50 MCG/ML 2 ML AMP ONE (12:09)
[2024-04-18] MEDS ORDERED: KETAMINE HCL IN 0.9 % NACL 50 MG/5 ML SYRINGE ONE (12:09)
[2024-04-18] MEDS: SODIUM CHLORIDE 0.9% 1,000 ML IV ONE (12:11)
[2024-04-18] MEDS: LIDOCAINE 1% INJ 10MG/ML (20 ML MDV) SQ ONE (12:23)
[2024-04-18] MEDS: MORPHINE SULFATE 2 MG/ML SYRINGE IVP PRN (13:46)
--- NOTE | 2024-04-18 14:42 | OP ---
OPERATIVE REPORT DATE OF SERVICE : PREOPERATIVE DIAGNOSIS: Gangrene of the right foot second toe. POSTOPERATIVE DIAGNOSIS: Gangrene of the right foot second toe. OPERATION: Ray amputation of the right foot second toe. DESCRIPTION OF PROCEDURE: The patient was brought to the operating room. Right foot was prepped and draped applied in a sterile manner. Under IV sedation and 1% lidocaine were infiltrated, incision was made on the dorsal aspect of the foot, deepened through skin fat, and fascia and tendons were divided on the dorsal aspect. This incision was extended to the plantar aspect deepened through skin, fat, and fascia and tendons were divided until we reached the metatarsophalangeal joint. Ligaments were divided at the metatarsophalangeal joint and specimen was removed. Minimal bleeding was noted which was controlled with electric cauterization. Specimen was sent for deep culture. Incision was closed. Subcutaneous tissue with 3-0 Monocryl with a running suture. Skin kept open and we placed excess silver rope. Dressing applied. Patient tolerated the procedure well. The patient transferred to recovery room in satisfactory condition. MMODL / IJN: [id number] /
--- NOTE | 2024-04-18 15:05 | P.PN ---
Subjective Progress Note Date: 04/18/24 Principal diagnosis: Reason for follow-up is right second toe gangrene Patient is a 84-year-old male with a past medical history significant for hypertension hyperlipidemia OR CVA TIA asthma presenting to the hospital for evaluation of right second toe wound, patient be diagnosed with right second toe gangrene prompted this consultation.Patient is status post right second toe amputation completed on 04/18/2024. On today's evaluation that is 04/18/2024,the patient remains to be afebrile, patient is on room air not requiring supplemental oxygen and denies any shortne ss of breath no chest pain or cough.Patient denies having any nausea or vomiting, no abdominal pain and no diarrhea pain to the right second amputation site is currently controlled. Patient white count at the 13.7 as of yesterday creatinine 0.71 Objective - Vital Signs Vital signs: Vital Signs Temp 97.7 F 04/18/24 13:31 Pulse 55 L 04/18/24 13:55 Resp 16 04/18/24 13:55 BP 118/53 04/18/24 13:55 Pulse Ox 94 L 04/18/24 13:55 FiO2 Intake & Output 04/17/24 04/18/24 04/18/24 18:59 06:59 18:59 Intake Total 50 550 Output Total 250 210 Balance 50 -250 340 Weight 64 kg Intake: IV 50 550 Output: Urine 250 200 Estimated Blood Loss 10 Other: Voiding Method Toilet Urinal Urinal # Voids 1 - Exam GENERAL DESCRIPTION: An elderly male lying in bed in no distress RESPIRATORY SYSTEM: Unlabored breathing , decreased breath sounds at bases HEART: S1 S2 regular rate and rhythm , ABDOMEN: Soft , no tenderness EXTREMITIES: Right second toe amputation site wound is currently dressed - Labs CBC & Chem 7: 04/17/24 06:11 04/18/24 07:29 Labs: Microbiology - Last 24 Hours (Table) 04/15/24 13:34 Anaerobic Culture - Preliminary Foot - Right 04/15/24 16:20 Blood Culture - Preliminary Blood 04/15/24 13:34 Gram Stain - Final Foot - Right Wound Culture - Final Pseudomonas aeruginosa Assessment and Plan (1) Cellulitis of right foot Current Visit: Yes Status: Acute Code(s): L03.115 - CELLULITIS OF RIGHT LOWER LIMB SNOMED Code(s): 93889380526623168 (2) Gangrene of toe of right foot Current Visit: Yes Status: Acute Code(s): I96 - GANGRENE, NOT ELSEWHERE CLASSIFIED SNOMED Code(s): 60095007191432702 (3) Leukocytosis Current Visit: No Status: Chronic Priority: Medium Code(s): D72.829 - ELEVATED WHITE BLOOD CELL COUNT, UNSPECIFIED SNOMED Code(s): 474074419 Plan: 1patient presented to hospital with blackish discoloration to his right second toe and this patient apparently has been dealing with a nonhealing wound to the area for couple weeks and seem to have failed outpatient oral antibiotic therapy concerning for gangrene did have elevated white count possible component of secondary bacterial infection not entirely excluded and need to cover for gram- positive skin mark as well as gram-negative pathogen 2patient has been evaluated by vascular surgery vascular did have lower extremity angiogram concerning for diffuse disease, patient is currently being monitored by vascular surgery and cardiology 3local cultures currently growing Pseudomonas, blood culture has been negative so far patient to continue with cefepime and monitor clinical course closely Dictation was produced using [employer] dictation software. please excuse any grammatical, word or spelling errors. Time with Patient: Less than 30
--- NOTE | 2024-04-18 15:24 | P.PN ---
Subjective Progress Note Date: 04/18/24 84-year-old patient who follows with visiting physicians Henok Harvey. Chronic stable medical conditions include CAD with a previous AR, hypertension, hyperlipidemia asthma. is ex-smoker. Lives by himself. For about 4 weeks patient has been noticing increasing discomfort pain in the right foot second toe. Progressively getting worse. Also right foot is a bit swollen. Increased pain and tenderness. 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 Patient was due to see Dr. Oscar from vascular in couple of days. Because symptoms got worse decided to come to the ER. No fever no chills. Patient is found of gangrene changes in the right foot second toe. Dr. Oscar from vascular was consulted. I spoke to patient's daughter on the phone at the patient's bedside. Normally uses a scooter to get about including inside the house. April 16: Saw the patient this morning. Sitting at the edge of the bed. On IV cefepime and vancomycin.Results of lower extremity CTA noted. Patient will be undergoing angiogram by Dr. Bell tomorrow. N.p.o. after midnight. Some pain at the affected foot. April 17: Patient continues with IV cefepime IV vancomycin. Family at the [facility]. Seen this morning. Due for angiogram by Dr. Bell this afternoon. Further course of action depending on the same. Wound culture growing Pseudomonas. Blood cultures negative till now 04/18. Patient seen and examined. Patient went for surgical intervention today. Any chest pain or shortness of breath REVIEW OF SYSTEMS: CONSTITUTIONAL: No fever, no malaise,. CARDIOVASCULAR: No chest pain, no palpitations, no syncope. PULMONARY: No shortness of breath, no cough, GASTROINTESTINAL: No diarrhea, no nausea, no vomiting, no abdominal pain. NEUROLOGICAL: No headaches, no weakness, PHYSICAL EXAMINATION: GENERAL: The patient is alert and oriented x3, not in any acute distress. Well developed, well nourished. HEENT: Pupils are round and equally reacting to light. EOMI. No scleral icterus. No conjunctival pallor. Normocephalic, atraumatic. No pharyngeal erythema. No thyromegaly. CARDIOVASCULAR: S1 and S2 present. No murmurs, rubs, or gallops. PULMONARY: Chest is clear to auscultation, no wheezing or crackles. ABDOMEN: Soft, nontender, nondistended, normoactive bowel sounds. No palpable organomegaly. MUSCULOSKELETAL: Right foot bandaged seen EXTREMITIES: No cyanosis, clubbing, or pedal edema. NEUROLOGICAL: Gross neurological examination did not reveal any focal deficits. SKIN: No rashes. Assessment and plan -Right foot second toe gangrene changes, with cellulitis. Monitor vital sign Monitor CBC Monitor CMP IV cefepime. Vascular surgery following, status post right second toe ray amputation ID following -Chronic congestive heart failure exacerbation, from systolic dysfunction EF 40% Aldactone 12.5 mg a day. Fluid restriction to 1500 cc a day. -Mild to moderate mitral regurgitation -Essential hypertension Lopressor 25 mg twice daily -Cognitive impairment. Aricept -Probable history of atrial fibrillation Xarelto-hold for now -Primary osteoarthritis Tylenol as needed -Chronic gait dysfunction, uses a scooter at baseline Labs and medication were reviewed.. Continue same treatment. Continue with symptomatic treatment. Resume home medication. Monitor labs and vitals. DVT and GI prophylaxis. Further recommendations as per clinical course of the patient Dictation was produced using [employer] dictation software. please excuse any grammatical, word or spelling errors. Objective - Vital Signs Vital signs: Vital Signs Temp 97.7 F 04/18/24 13:31 Pulse 55 L 04/18/24 13:55 Resp 16 04/18/24 13:55 BP 118/53 04/18/24 13:55 Pulse Ox 94 L 04/18/24 13:55 FiO2 Intake & Output 04/17/24 04/18/24 04/18/24 18:59 06:59 18:59 Intake Total 50 550 Output Total 250 210 Balance 50 -250 340 Weight 64 kg Intake: IV 50 550 Output: Urine 250 200 Estimated Blood Loss 10 Other: Voiding Method Toilet Urinal Urinal # Voids 1 - Labs CBC & Chem 7: 04/17/24 06:11 04/18/24 07:29 Labs: Microbiology - Last 24 Hours (Table) 04/15/24 13:34 Anaerobic Culture - Preliminary Foot - Right 04/15/24 16:20 Blood Culture - Preliminary Blood 04/15/24 13:34 Gram Stain - Final Foot - Right Wound Culture - Final Pseudomonas aeruginosa
[2024-04-18] MEDS: CEFEPIME 2 GM in SODIUM CHLORIDE 0.9% 100 ML IVPB SCH (21:57)
--- NOTE | 2024-04-19 13:08 | P.PN ---
Subjective Progress Note Date: 04/19/24 84-year-old patient who follows with visiting physicians Henok Harvey. Chronic stable medical conditions include CAD with a previous AL, hypertension, hyperlipidemia asthma. is ex-smoker. Lives by himself. For about 4 weeks patient has been noticing increasing discomfort pain in the right foot second toe. Progressively getting worse. Also right foot is a bit swollen. Increased pain and tenderness. 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 Patient was due to see Dr. Oscar from vascular in couple of days. Because symptoms got worse decided to come to the ER. No fever no chills. Patient is found of gangrene changes in the right foot second toe. Dr. Oscar from vascular was consulted. I spoke to patient's daughter on the phone at the patient's bedside. Normally uses a scooter to get about including inside the house. April 16: Saw the patient this morning. Sitting at the edge of the bed. On IV cefepime and vancomycin.Results of lower extremity CTA noted. Patient will be undergoing angiogram by Dr. Bell tomorrow. N.p.o. after midnight. Some pain at the affected foot. April 17: Patient continues with IV cefepime IV vancomycin. Family at the [facility]. Seen this morning. Due for angiogram by Dr. Bell this afternoon. Further course of action depending on the same. Wound culture growing Pseudomonas. Blood cultures negative till now 04/18. Patient seen and examined. Patient went for surgical intervention today. Any chest pain or shortness of breath 04/19. Patient seen and examined. Sitting upright in the chair. Denies any chest pain or shortness of breath. States he feels better REVIEW OF SYSTEMS: CONSTITUTIONAL: No fever, no malaise,. CARDIOVASCULAR: No chest pain, no palpitations, no syncope. PULMONARY: No shortness of breath, no cough, GASTROINTESTINAL: No diarrhea, no nausea, no vomiting, no abdominal pain. NEUROLOGICAL: No headaches, no weakness, PHYSICAL EXAMINATION: GENERAL: The patient is alert and oriented x3, not in any acute distress. Well developed, well nourished. HEENT: Pupils are round and equally reacting to light. EOMI. No scleral icterus. No conjunctival pallor. Normocephalic, atraumatic. No pharyngeal erythema. No thyromegaly. CARDIOVASCULAR: S1 and S2 present. No murmurs, rubs, or gallops. PULMONARY: Chest is clear to auscultation, no wheezing or crackles. ABDOMEN: Soft, nontender, nondistended, normoactive bowel sounds. No palpable organomegaly. MUSCULOSKELETAL: Right foot bandaged seen EXTREMITIES: No cyanosis, clubbing, or pedal edema. NEUROLOGICAL: Gross neurological examination did not reveal any focal deficits. SKIN: No rashes. Assessment and plan -Right foot second toe gangrene changes, with cellulitis. Monitor vital sign Monitor CBC Monitor CMP IV cefepime. Vascular surgery following, status post right second toe ray amputation ID following -Chronic congestive heart failure exacerbation, from systolic dysfunction EF 40% -Mild to moderate mitral regurgitation -Essential hypertension Aldactone 12.5 mg a day. Fluid restriction to 1500 cc a day. Lopressor 25 mg twice daily -Cognitive impairment. Aricept -Probable history of atrial fibrillation Xarelto-hold for now -Primary osteoarthritis Tylenol as needed -Chronic gait dysfunction, uses a scooter at baseline Labs and medication were reviewed.. Continue same treatment. Continue with symptomatic treatment. Resume home medication. Monitor labs and vitals. DVT and GI prophylaxis. Further recommendations as per clinical course of the patient Dictation was produced using [employer] dictation software. please excuse any grammatical, word or spelling errors. Objective - Vital Signs Vital signs: Vital Signs Temp 97.8 F 04/19/24 12:11 Pulse 69 04/19/24 12:11 Resp 17 04/19/24 12:11 BP 118/67 04/19/24 12:11 Pulse Ox 93 L 04/19/24 12:11 FiO2 Intake & Output 04/18/24 04/19/24 04/19/24 18:59 06:59 18:59 Intake Total 1090 0 Output Total 610 400 100 Balance 480 -400 -100 Weight 65.5 kg Intake: IV 550 Oral 540 0 Output: Urine 600 400 100 Estimated Blood Loss 10 Other: Voiding Method Urinal Toilet Toilet Urinal Urinal # Voids 2 2 - Labs CBC & Chem 7: 04/17/24 06:11 04/18/24 07:29 Labs: Microbiology - Last 24 Hours (Table) 04/15/24 16:20 Blood Culture - Preliminary Blood
--- NOTE | 2024-04-19 14:19 | XR ---
EXAMINATION TYPE: XR chest 2V DATE OF EXAM: 04/15/2024 9:08 PM CLINICAL INDICATION:Male, 84 years old with history of Preop-chf; [facility] COMPARISON: 10/29/2023 TECHNIQUE: XR chest 2V. Frontal and lateral views of the chest.. FINDINGS: Lines/Tubes/Devices: No indwelling lines are seen. Heart/mediastinum: Heart size upper normal. Atherosclerotic calcifications are seen in the aorta. S table mediastinal contours. Pulmonary vascularity: Not increased, Lungs/Pleura: There is no evidence of pleural effusion, focal consolidation, or pneumothorax. Simila r mild hyperinflation and interstitial coarsening compared to prior, COPD is a consideration. Musculoskeletal: No acute osseous abnormality demonstrated in the limits of the exam. Mild degenerat raghav changes. Other findings: Right upper quadrant clips likely from cholecystectomy. IMPRESSION: No acute findings, or significant interval change.
--- NOTE | 2024-04-19 14:24 | P.PN ---
Subjective Progress Note Date: 04/19/24 Principal diagnosis: Reason for follow-up is right second toe gangrene Patient is a 84-year-old male with a past medical history significant for hypertension hyperlipidemia SC CVA TIA asthma presenting to the hospital for evaluation of right second toe wound, patient be diagnosed with right second toe gangrene prompted this consultation.Patient is status post right second toe amputation completed on 04/18/2024. On today's evaluation that is 04/19/2024, the patient continues to be afebrile, the patient is on room air and breathing comfortably, the Pt denies having any chest pain or cough, the patient denies having any abdominal pain no vomiting or any diarrhea was complaining of some crampy pain to the right thigh and foot area seem to have improved subsequently. Patient did not have any lab draw today local culture with Pseudomonas Objective - Vital Signs Vital signs: Vital Signs Temp 97.8 F 04/19/24 12:11 Pulse 69 04/19/24 13:05 Resp 17 04/19/24 12:11 BP 118/67 04/19/24 12:11 Pulse Ox 93 L 04/19/24 12:11 FiO2 Intake & Output 04/18/24 04/19/24 04/19/24 18:59 06:59 18:59 Intake Total 1090 0 Output Total 610 400 100 Balance 480 -400 -100 Weight 65.5 kg Intake: IV 550 Oral 540 0 Output: Urine 600 400 100 Estimated Blood Loss 10 Other: Voiding Method Urinal Toilet Toilet Urinal Urinal # Voids 2 2 - Exam GENERAL DESCRIPTION: An elderly male lying in bed in no distress RESPIRATORY SYSTEM: Unlabored breathing , decreased breath sounds at bases HEART: S1 S2 regular rate and rhythm , ABDOMEN: Soft , no tenderness EXTREMITIES: Right second toe amputation site wound is currently dressed - Labs CBC & Chem 7: 04/17/24 06:11 04/18/24 07:29 Labs: Microbiology - Last 24 Hours (Table) 04/15/24 16:20 Blood Culture - Preliminary Blood Assessment and Plan (1) Cellulitis of right foot Current Visit: Yes Status: Acute Code(s): L03.115 - CELLULITIS OF RIGHT LOWER LIMB SNOMED Code(s): 80722157428413083 (2) Gangrene of toe of right foot Current Visit: Yes Status: Acute Code(s): I96 - GANGRENE, NOT ELSEWHERE CLASSIFIED SNOMED Code(s): 63078058326459983 (3) Leukocytosis Current Visit: No Status: Chronic Priority: Medium Code(s): D72.829 - ELEVATED WHITE BLOOD CELL COUNT, UNSPECIFIED SNOMED Code(s): 617813604 Plan: 1patient presented to hospital with blackish discoloration to his right second toe and this patient apparently has been dealing with a nonhealing wound to the area for couple weeks and seem to have failed outpatient oral antibiotic therapy concerning for gangrene did have elevated white count possible component of seco ndary bacterial infection not entirely excluded and need to cover for gram- positive skin mark as well as gram-negative pathogen 2patient has been evaluated by vascular surgery vascular did have lower extremity angiogram concerning for diffuse disease, patient is currently being monitored by vascular surgery and cardiology 3local cultures currently growing Pseudomonas, blood culture has been negative so far 4patient to continue with cefepime we will repeat a CBC with a.m. lab to make sure white count is normalized and monitor clinical course closely Dictation was produced using [employer] dictation software. please excuse any grammatical, word or spelling errors. Time with Patient: Less than 30
[2024-04-20 08:04] LABS: Anisocytosis Moderate; Basophils # (A) 0.1 k/uL (0-0.2); Basophils % (A) 1 %; Eosinophils # (A) 0.2 k/uL (0-0.7); Eosinophils % (A) 1 %; HCT 41.1 % (39.0-53.0); HGB 12.9 gm/dL (13.0-17.5); Hypochromasia Slight; Lymphocytes % (A) 8 %; MCH 38.8 pg (25.0-35.0); MCHC 31.4 g/dL (31.0-37.0); MCV 123.4 fL (80.0-100.0); Macrocytosis Marked; Mean Platelet Volume 11.6; Monocytes # (A) 0.5 k/uL (0-1.0); Monocytes % (A) 4 %; Neutrophils # (A) 10.1 k/uL (1.3-7.7); Neutrophils % (A) 85 %; Platelet Count 301 k/uL (150-450); RBC 3.33 m/uL (4.30-5.90); RDW 20.1 % (11.5-15.5); WBC 11.9 k/uL (3.8-10.6)
[2024-04-20 08:52] LABS: African American GFR (CKD) >90 (>60 ml/min/1.73 sqM); Anion Gap 9 mmol/L; Blood Urea Nitrogen 18 mg/dL (9-20); Carbon Dioxide 23 mmol/L (22-30); Chloride 98 mmol/L (98-107); Glucose 94 mg/dL (74-99); Non-African American GFR(CKD) 83 (>60 ml/min/1.73 sqM); Sodium 130 mmol/L (137-145)
[2024-04-20 09:30] LABS: Spherocytes Present
[2024-04-20 10:56] LABS: C Reactive Protein 2.5 mg/dL (<1.0)
--- NOTE | 2024-04-20 14:47 | P.PN ---
Progress Note - Text 84-year-old gentleman patient had a right second toe ray amputation. Also had a angiogram patient has severe peripheral vascular disease today will change the dressing there is some ecchymosis noted on the dorsum aspect of the foot Aquacel was applied to the wound dressing applied dressing should be changed every 48 hours
--- NOTE | 2024-04-20 22:16 | P.PN ---
Subjective Progress Note Date: 04/20/24 84-year-old patient who follows with visiting physicians Henok Harvey. Chronic stable medical conditions include CAD with a previous SD, hypertension, hyperlipidemia asthma. is ex-smoker. Lives by himself. For about 4 weeks patient has been noticing increasing discomfort pain in the right foot second toe. Progressively getting worse. Also right foot is a bit swollen. Increased pain and tenderness. 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 Patient was due to see Dr. Oscar from vascular in couple of days. Because symptoms got worse decided to come to the ER. No fever no chills. Patient is found of gangrene changes in the right foot second toe. Dr. Oscar from vascular was consulted. I spoke to patient's daughter on the phone at the patient's bedside. Normally uses a scooter to get about including inside the house. April 16: Saw the patient this morning. Sitting at the edge of the bed. On IV cefepime and vancomycin.Results of lower extremity CTA noted. Patient will be undergoing angiogram by Dr. Bell tomorrow. N.p.o. after midnight. Some pain at the affected foot. April 17: Patient continues with IV cefepime IV vancomycin. Family at the bedside. Seen this morning. Due for angiogram by Dr. Bell this afternoon. Further course of action depending on the same. Wound culture growing Pseudomonas. Blood cultures negative till now 04/18. Patient seen and examined. Patient went for surgical intervention today. Any chest pain or shortness of breath 04/19. Patient seen and examined. Sitting upright in the chair. Denies any chest pain or shortness of breath. States he feels better 04/20/2024 Patient evaluated in follow up today on the cardiac unit. Postoperative day #4 right 2nd toe ray amputation. Cultures growing pseudomonas. Vascular following. Recommending aquacel Q48 hours to the wound. CT angio with runoff reveals severe peripheral arterial disease and bilateral popliteal occlusions. Patient remains on IV cefepime. Surgical cultures are pending. White blood cell count 11.9. Hgb 12.9. Sodium 130. Patient is on room air. REVIEW OF SYSTEMS: CONSTITUTIONAL: No fever, no malaise,. CARDIOVASCULAR: No chest pain, no palpitations, no syncope. PULMONARY: No shortness of breath, no cough, GASTROINTESTINAL: No diarrhea, no nausea, no vomiting, no abdominal pain. NEUROLOGICAL: No headaches, no weakness, PHYSICAL EXAMINATION: GENERAL: The patient is alert and oriented x3, not in any acute distress. Well developed, well nourished. HEENT: Pupils are round and equally reacting to light. EOMI. No scleral icterus. No conjunctival pallor. Normocephalic, atraumatic. No pharyngeal erythema. No thyromegaly. CARDIOVASCULAR: S1 and S2 present. No murmurs, rubs, or gallops. PULMONARY: Chest is clear to auscultation, no wheezing or crackles. ABDOMEN: Soft, nontender, nondistended, normoactive bowel sounds. No palpable organomegaly. MUSCULOSKELETAL: Right foot bandaged seen EXTREMITIES: No cyanosis, clubbing, or pedal edema. NEUROLOGICAL: Gross neurological examination did not reveal any focal deficits. SKIN: No rashes. Assessment and plan -Right foot second toe gangrene changes, with cellulitis. Monitor vital sign Monitor CBC Monitor CMP IV cefepime. Vascular surgery following, status post right second toe ray amputation and surgical cultures are pending. ID following -Chronic congestive heart failure exacerbation, from systolic dysfunction EF 40% -Mild to moderate mitral regurgitation -Essential hypertension Aldactone 12.5 mg a day. Fluid restriction to 1500 cc a day. Lopressor 25 mg twice daily Stop IV fluids. Repeat bMP monitor sodium level patient has hypervolemic hyponatremia. -Cognitive impairment. Aricept -Probable history of atrial fibrillation Xarelto-hold for now -Primary osteoarthritis Tylenol as needed -Chronic gait dysfunction, uses a scooter at baseline Labs and medication were reviewed.. Continue same treatment. Continue with symptomatic treatment. Resume home medication. Monitor labs and vitals. DVT and GI prophylaxis. Further recommendations as per clinical course of the patient Dictation was produced using [employer] dictation software. please excuse any grammatical, word or spelling errors. The impression and plan of care has been dictated by Tiffani Colon, Nurse Practitioner as directed. Dr. Gary MD I have performed a history and physical examination and medical decision making of this patient, discussed the same with the dictator, and agree with the dictators assessment and plan as written, documented as a scribe. Based on total visit time, I have performed more than 50% of this visit. Objective - Vital Signs Vital signs: Vital Signs Temp 97.5 F L 04/20/24 08:00 Pulse 78 04/20/24 08:00 Resp 18 04/20/24 08:00 BP 125/69 04/20/24 08:00 Pulse Ox 97 04/20/24 08:00 FiO2 Intake & Output 04/19/24 04/20/24 04/20/24 18:59 06:59 18:59 Intake Total 250 320 246 Output Total 300 500 Balance -50 -180 246 Weight 63.2 kg Intake: IV 10 20 10 Invasive Line 5 10 20 10 Oral 240 300 236 Output: Urine 300 500 Other: Voiding Method Toilet Toilet Toilet Urinal Urinal Urinal - Labs CBC & Chem 7: 04/20/24 06:50 04/20/24 06:50 Labs: Abnormal Lab Results - Last 24 Hours (Table) 04/20/24 04/20/24 Range/Units 06:50 06:50 WBC 11.9 H (3.8-10.6) k/uL RBC 3.33 L (4.30-5.90) m/uL Hgb 12.9 L (13.0-17.5) gm/dL MCV 123.4 H (80.0-100.0) fL MCH 38.8 H (25.0-35.0) pg RDW 20.1 H (11.5-15.5) % Neutrophils # 10.1 H (1.3-7.7) k/uL Macrocytosis Marked A Sodium 130 L (137-145) mmol/L C-Reactive Protein 2.5 H (<1.0) mg/dL Microbiology - Last 24 Hours (Table) 04/18/24 12:41 Gram Stain - Preliminary Toe - Right Second Tissue Culture - Preliminary 04/15/24 13:34 Anaerobic Culture - Final Foot - Right Assessment and Plan Time with Patient: Less than 30
[2024-04-21 06:56] LABS: African American GFR (CKD) >90 (>60 ml/min/1.73 sqM); Anion Gap 6 mmol/L; Blood Urea Nitrogen 21 mg/dL (9-20); Calcium 8.8 mg/dL (8.4-10.2); Carbon Dioxide 24 mmol/L (22-30); Chloride 105 mmol/L (98-107); Glucose 97 mg/dL (74-99); Non-African American GFR(CKD) 85 (>60 ml/min/1.73 sqM); Sodium 135 mmol/L (137-145)
--- NOTE | 2024-04-21 15:13 | P.PN ---
Subjective Progress Note Date: 04/21/24 84-year-old patient who follows with visiting physicians Henok Harvey. Chronic stable medical conditions include CAD with a previous NC, hypertension, hyperlipidemia asthma. is ex-smoker. Lives by himself. For about 4 weeks patient has been noticing increasing discomfort pain in the right foot second toe. Progressively getting worse. Also right foot is a bit swollen. Increased pain and tenderness. Patient was following with the foot and ankle behavioral therapy coordinator. Patient was due to see Dr. Oscar from vascular in couple of days. Because symptoms got worse decided to come to the ER. No fever no chills. Patient is found of gangrene changes in the right foot second toe. Dr. Oscar from vascular was consulted. I spoke to patient's daughter on the phone at the patient's bedside. Normally uses a scooter to get about including inside the house. April 16: Saw the patient this morning. Sitting at the edge of the bed. On IV cefepime and vancomycin.Results of lower extremity CTA noted. Patient will be undergoing angiogram by Dr. Bell tomorrow. N.p.o. after midnight. Some pain at the affected foot. April 17: Patient continues with IV cefepime IV vancomycin. Family at the bedside. Seen this morning. Due for angiogram by Dr. Bell this afternoon. Further course of action depending on the same. Wound culture growing Pseudomonas. Blood cultures negative till now 04/18. Patient seen and examined. Patient went for surgical intervention today. Any chest pain or shortness of breath 04/19. Patient seen and examined. Sitting upright in the chair. Denies any chest pain or shortness of breath. States he feels better 04/20/2024 Patient evaluated in follow up today on the cardiac unit. Postoperative day #4 right 2nd toe ray amputation. Cultures growing pseudomonas. Vascular following. Recommending aquacel Q48 hours to the wound. CT angio with runoff reveals severe peripheral arterial disease and bilateral popliteal occlusions. Patient remains on IV cefepime. Surgical cultures are pending. White blood cell count 11.9. Hgb 12.9. Sodium 130. Patient is on room air. 04/21/2024 Patient with no acute complaints today. He was cleared to be up ambulating with heel touch only of the right leg. He is postoperative day #5 right 2nd toe ray amputation. Pending final surgical cultures. Local wound care with aquacel. Sodium better at 135 after discontinuation of IV fluids. REVIEW OF SYSTEMS: CONSTITUTIONAL: No fever, no malaise,. CARDIOVASCULAR: No chest pain, no palpitations, no syncope. PULMONARY: No shortness of breath, no cough, GASTROINTESTINAL: No diarrhea, no nausea, no vomiting, no abdominal pain. NEUROLOGICAL: No headaches, no weakness, PHYSICAL EXAMINATION: GENERAL: The patient is alert and oriented x3, not in any acute distress. Well developed, well nourished. HEENT: Pupils are round and equally reacting to light. EOMI. No scleral icterus. No conjunctival pallor. Normocephalic, atraumatic. No pharyngeal erythema. No thyromegaly. CARDIOVASCULAR: S1 and S2 present. No murmurs, rubs, or gallops. PULMONARY: Chest is clear to auscultation, no wheezing or crackles. ABDOMEN: Soft, nontender, nondistended, normoactive bowel sounds. No palpable organomegaly. MUSCULOSKELETAL: Right foot bandaged seen EXTREMITIES: No cyanosis, clubbing, or pedal edema. NEUROLOGICAL: Gross neurological examination did not reveal any focal deficits. SKIN: No rashes. Assessment and plan -Right foot second toe gangrene changes, with cellulitis. Monitor vital sign Monitor CBC Monitor CMP IV cefepime. Vascular surgery following, status post right second toe ray amputation and surgical cultures are pending. ID following -Chronic congestive heart failure exacerbation, from systolic dysfunction EF 40% -Mild to moderate mitral regurgitation -Essential hypertension Aldactone 12.5 mg a day. Fluid restriction to 1500 cc a day. Lopressor 25 mg twice daily Stop IV fluids. Repeat bMP monitor sodium level patient has hypervolemic hyponatremia. Sodium improved 135. -Cognitive impairment. Aricept -Probable history of atrial fibrillation Xarelto-hold for now -Primary osteoarthritis Tylenol as needed -Chronic gait dysfunction, uses a scooter at baseline Labs and medication were reviewed.. Continue same treatment. Continue with symptomatic treatment. Resume home medication. Monitor labs and vitals. DVT and GI prophylaxis. Further recommendations as per clinical course of the patient. PT and OT have been consulted. Patient with plans to return to [facility] on discharge. Antibiotics recommendations per ID. Continue local wound care to [facility] amputation site with aquacel silver Q48 hours. Dictation was produced using dragon dictation software. please excuse any grammatical, word or spelling errors. The impression and plan of care has been dictated by Tiffani Colon, Nurse Practitioner as directed. Dr. Gary MD I have performed a history and physical examination and medical decision making of this patient, discussed the same with the dictator, and agree with the dictators assessment and plan as written, documented as a scribe. Based on total visit time, I have performed more than 50% of this visit. Objective - Vital Signs Vital signs: Vital Signs Temp 98.1 F 04/21/24 08:00 Pulse 78 04/21/24 08:00 Resp 16 04/21/24 08:00 BP 125/72 04/21/24 08:00 Pulse Ox 96 04/21/24 08:00 FiO2 Intake & Output 04/20/24 04/21/24 04/21/24 18:59 06:59 18:59 Intake Total 1331 20 128 Output Total 500 625 Balance 831 -605 128 Weight 63.5 kg 63.5 kg Intake: IV 20 20 10 Invasive Line 5 20 20 10 Oral 1311 118 Output: Urine 500 625 Other: Voiding Method Toilet Toilet Toilet Urinal Urinal Urinal - Labs CBC & Chem 7: 04/20/24 06:50 04/21/24 05:37 Labs: Abnormal Lab Results - Last 24 Hours (Table) 04/21/24 Range/Units 05:37 Sodium 135 L (137-145) mmol/L BUN 21 H (9-20) mg/dL Microbiology - Last 24 Hours (Table) 04/15/24 16:20 Blood Culture - Final Blood 04/18/24 12:41 Gram Stain - Preliminary Toe - Right Second Tissue Culture - Preliminary Pseudomonas aeruginosa Assessment and Plan Time with Patient: Less than 30
--- NOTE | 2024-04-21 15:37 | P.PN ---
Subjective Progress Note Date: 04/20/24 Principal diagnosis: Reason for follow-up is right second toe gangrene Patient is a 84-year-old male with a past medical history significant for hypertension hyperlipidemia [place] CVA TIA asthma presenting to the hospital for evaluation of right second toe wound, patient be diagnosed with right second toe gangrene prompted this consultation.Patient is status post right second toe amputation completed on 04/18/2024. On today's evaluation that is 04/20/2024, Patient is afebrile patient is currently on room air and denies having any shortness of breath, the patient denies any chest pain or cough, the patient denies any nausea vomiting did not have any abdominal pain and no diarrhea, denies any worsening pain to the right lower extremity The patient white count is down to 11.9, creatinine 0.76 cultures with a Pseudomonas sensitive pathogen Objective - Vital Signs Vital signs: Vital Signs Temp 97.5 F L 04/20/24 08:00 Pulse 78 04/20/24 08:00 Resp 18 04/20/24 08:00 BP 125/69 04/20/24 08:00 Pulse Ox 97 04/20/24 08:00 FiO2 Intake & Output 04/19/24 04/20/24 04/20/24 18:59 06:59 18:59 Intake Total 250 320 246 Output Total 300 500 Balance -50 -180 246 Weight 63.2 kg Intake: IV 10 20 10 Invasive Line 5 10 20 10 Oral 240 300 236 Output: Urine 300 500 Other: Voiding Method Toilet Toilet Toilet Urinal Urinal Urinal - Exam GENERAL DESCRIPTION: An elderly male lying in bed in no distress RESPIRATORY SYSTEM: Unlabored breathing , decreased breath sounds at bases HEART: S1 S2 regular rate and rhythm , ABDOMEN: Soft , no tenderness EXTREMITIES: Right second toe amputation site wound is currently dressed - Labs CBC & Chem 7: 04/20/24 06:50 04/21/24 05:37 Labs: Abnormal Lab Results - Last 24 Hours (Table) 04/20/24 04/20/24 Range/Units 06:50 06:50 WBC 11.9 H (3.8-10.6) k/uL RBC 3.33 L (4.30-5.90) m/uL Hgb 12.9 L (13.0-17.5) gm/dL MCV 123.4 H (80.0-100.0) fL MCH 38.8 H (25.0-35.0) pg RDW 20.1 H (11.5-15.5) % Neutrophils # 10.1 H (1.3-7.7) k/uL Macrocytosis Marked A Sodium 130 L (137-145) mmol/L C-Reactive Protein 2.5 H (<1.0) mg/dL Microbiology - Last 24 Hours (Table) 04/18/24 12:41 Gram Stain - Preliminary Toe - Right Second Tissue Culture - Preliminary 04/15/24 13:34 Anaerobic Culture - Final Foot - Right Assessment and Plan (1) Cellulitis of right foot Current Visit: Yes Status: Acute Code(s): L03.115 - CELLULITIS OF RIGHT LOWER LIMB SNOMED Code(s): 93684519455707051 (2) Gangrene of toe of right foot Current Visit: Yes Status: Acute Code(s): I96 - GANGRENE, NOT ELSEWHERE CLASSIFIED SNOMED Code(s): 25886157405182478 (3) Leukocytosis Current Visit: No Status: Chronic Priority: Medium Code(s): D72.829 - ELEVATED WHITE BLOOD CELL COUNT, UNSPECIFIED SNOMED Code(s): 674148469 Plan: 1patient presented to hospital with blackish discoloration to his right second toe and this patient apparently has been dealing with a nonhealing wound to the area for couple weeks and seem to have failed outpatient oral antibiotic therapy concerning for gangrene did have elevated white count possible component of secondary bacterial infection not entirely excluded and need to cover for gram- positive skin mark as well as gram-negative pathogen 2patient has been evaluated by vascular surgery vascular did have lower extremity angiogram concerning for diffuse disease, patient is currently being monitored by vascular surgery and cardiology 3local cultures currently growing Pseudomonas, blood culture has been negative so far currently pending 4patient to continue with cefepime, await further recommendation from vascular surgery Dictation was produced using [employer] dictation software. please excuse any grammatical, word or spelling errors. Time with Patient: Less than 30
--- NOTE | 2024-04-21 15:38 | P.PN ---
Subjective Progress Note Date: 04/21/24 Principal diagnosis: Reason for follow-up is right second toe gangrene Patient is a 84-year-old male with a past medical history significant for hypertension hyperlipidemia [place] CVA TIA asthma presenting to the hospital for evaluation of right second toe wound, patient be diagnosed with right second toe gangrene prompted this consultation.Patient is status post right second toe amputation completed on 04/18/2024. On today's evaluation that is 04/21/2024, patient has been afebrile, patient is breathing comfortably and is currently on room air, patient denies having any significant cough no chest pain shortness of breath, patient denies nausea vomiting or diarrhea and no abdominal pain, pain to the right foot and lower extremity is currently controlled. CBC done today creatinine is 0.72 Objective - Vital Signs Vital signs: Vital Signs Temp 98.1 F 04/21/24 08:00 Pulse 78 04/21/24 08:00 Resp 16 04/21/24 14:00 BP 125/72 04/21/24 08:00 Pulse Ox 96 04/21/24 08:00 FiO2 Intake & Output 04/20/24 04/21/24 04/21/24 18:59 06:59 18:59 Intake Total 1331 20 138 Output Total 500 625 Balance 831 -605 138 Weight 63.5 kg 63.5 kg Intake: IV 20 20 20 Invasive Line 5 20 20 20 Oral 1311 118 Output: Urine 500 625 Other: Voiding Method Toilet Toilet Toilet Urinal Urinal Urinal - Exam GENERAL DESCRIPTION: An elderly male lying in bed in no distress RESPIRATORY SYSTEM: Unlabored breathing , decreased breath sounds at bases HEART: S1 S2 regular rate and rhythm , ABDOMEN: Soft , no tenderness EXTREMITIES: Right second toe amputation site wound is open and the patient have significant ischemic changes to the right foot - Labs CBC & Chem 7: 04/20/24 06:50 04/21/24 05:37 Labs: Abnormal Lab Results - Last 24 Hours (Table) 04/21/24 Range/Units 05:37 Sodium 135 L (137-145) mmol/L BUN 21 H (9-20) mg/dL Microbiology - Last 24 Hours (Table) 04/15/24 16:20 Blood Culture - Final Blood 04/18/24 12:41 Gram Stain - Preliminary Toe - Right Second Tissue Culture - Preliminary Pseudomonas aeruginosa Assessment and Plan (1) Cellulitis of right foot Current Visit: Yes Status: Acute Code(s): L03.115 - CELLULITIS OF RIGHT LOWER LIMB SNOMED Code(s): 48171878078664326 (2) Gangrene of toe of right foot Current Visit: Yes Status: Acute Code(s): I96 - GANGRENE, NOT ELSEWHERE CLASSIFIED SNOMED Code(s): 67693445144013187 (3) Leukocytosis Current Visit: No Status: Chronic Priority: Medium Code(s): D72.829 - ELEVATED WHITE BLOOD CELL COUNT, UNSPECIFIED SNOMED Code(s): 753783584 Plan: 1patient presented to hospital with blackish discoloration to his right second toe and this patient apparently has been dealing with a nonhealing wound to the area for couple weeks and seem to have failed outpatient oral antibiotic therapy concerning for gangrene did have elevated white count possible component of secondary bacterial infection not entirely excluded and need to cover for gram- positive skin mark as well as gram-negative pathogen 2patient has been evaluated by vascular surgery vascular did have lower extremity angiogram concerning for diffuse disease, patient is currently being monitored by vascular surgery and cardiology 3local cultures currently growing Pseudomonas, blood culture has been negative so far currently pending 4patient did have significant ischemic changes to the right foot any further i ntervention from vascular surgery this has been discussed with Dr. Oscar on the phone we will update when he reviews the angiogram for now continue with the cefepime Dictation was produced using [employer] dictation software. please excuse any grammatical, word or spelling errors. Time with Patient: Less than 30
--- NOTE | 2024-04-21 23:13 | PN ---
PROGRESS NOTE An 84-year-old gentleman, who had a ray amputation of the second toe. The patient had an aortogram with runoff for right side common femoral artery, SFA, and severe infrapopliteal disease. The patient has some ecchymosis noted on the dorsal aspect of the foot. No Doppler signal present. I will discuss further management with the daughter. KEREN / RIKN: [id number] /
[2024-04-22 08:31] LABS: Anisocytosis Slight; Basophils # (A) 0.1 k/uL (0-0.2); Basophils % (A) 1 %; Eosinophils # (A) 0.2 k/uL (0-0.7); Eosinophils % (A) 2 %; HCT 38.6 % (39.0-53.0); Hypochromasia Marked; Lymphocytes # (A) 1.1 k/uL (1.0-4.8); Lymphocytes % (A) 9 %; MCHC 31.2 g/dL (31.0-37.0); MCV 125.1 fL (80.0-100.0); Macrocytosis Marked; Mean Platelet Volume 10.2; Monocytes # (A) 0.5 k/uL (0-1.0); Monocytes % (A) 4 %; Neutrophils # (A) 10.1 k/uL (1.3-7.7); Neutrophils % (A) 83 %; Platelet Count 348 k/uL (150-450); RBC 3.08 m/uL (4.30-5.90); WBC 12.2 k/uL (3.8-10.6)
[2024-04-22 09:24] LABS: African American GFR (CKD) >90 (>60 ml/min/1.73 sqM); Anion Gap 9 mmol/L; Blood Urea Nitrogen 29 mg/dL (9-20); Calcium 9.2 mg/dL (8.4-10.2); Carbon Dioxide 23 mmol/L (22-30); Chloride 103 mmol/L (98-107); Glucose 127 mg/dL (74-99); Non-African American GFR(CKD) 81 (>60 ml/min/1.73 sqM); Potassium 4.9 mmol/L (3.5-5.1); Sodium 135 mmol/L (137-145)
--- NOTE | 2024-04-22 21:56 | P.PN ---
Progress Note - Text Progress Note Date: 04/22/24 Chief Complaint: Right foot second toe gangrene very pleasant 84-year-old patient who follows with visiting physicians Henok Harvey. Chronic stable medical conditions include CAD with a previous MD, hypertension, hyperlipidemia asthma. is ex-smoker. Lives by himself. For about 4 weeks patient has been noticing increasing discomfort pain in the right foot second toe. Progressively getting worse. Also right foot is a bit swollen. Increased pain and tenderness. Patient was following with the foot and ankle gas roller operator. Patient was due to see Dr. Oscar from vascular in couple of days. Because symptoms got worse decided to come to the ER. No fever no chills. Patient is found of gangrene changes in the right foot second toe. Dr. Oscar from vascular was consulted. I spoke to patient's daughter on the phone at the patient's bedside. Normally uses a scooter to get about including inside the house. April 16: Saw the patient this morning. Sitting at the edge of the bed. On IV cefepime and vancomycin.Results of lower extremity CTA noted. Patient will be undergoing angiogram by Dr. Bell tomorrow. N.p.o. after midnight. Some pain at the affected foot. April 17: Patient continues with IV cefepime IV vancomycin. Family at the bedside. Seen this morning. Due for angiogram by Dr. Bell this afternoon. Further course of action depending on the same. Wound culture growing Pseudomonas. Blood cultures negative till now 04/18. Patient seen and examined. Patient went for surgical intervention today. Any chest pain or shortness of breath 04/19. Patient seen and examined. Sitting upright in the chair. Denies any c hest pain or shortness of breath. States he feels better 04/20/2024 Patient evaluated in follow up today on the cardiac unit. Postoperative day #4 right 2nd toe ray amputation. Cultures growing pseudomonas. Vascular following. Recommending aquacel Q48 hours to the wound. CT angio with runoff reveals severe peripheral arterial disease and bilateral popliteal occlusions. Patient remains on IV cefepime. Surgical cultures are pending. White blood cell count 11.9. Hgb 12.9. Sodium 130. Patient is on room air. 04/21/2024 Patient with no acute complaints today. He was cleared to be up ambulating with heel touch only of the right leg. He is postoperative day #5 right 2nd toe ray amputation. Pending final surgical cultures. Local wound care with aquacel. Sodium better at 135 after discontinuation of IV fluids. April 22, 2024: Sitting up in a chair. Pain controlled. Had a good breakfast today. I spoke to Dr. Oscar today. Patient had poor circulation. He may need amputation proximally at some point. He will talk to patient's daughter. Meantime antibiotics are to continue and plan for discharge. Active Medications Acetaminophen (Acetaminophen Tab 325 Mg Tab) 650 mg PO Q6HR PRN PRN Reason: Mild Pain or Fever > 100.5 Hydrocodone Bitart/Acetaminophen (Hydrocodone/Apap 5-325mg 1 Each Tab) 1 each PO Q4HR PRN PRN Reason: Moderate Pain (Scale 4 to 6) Last Admin: 04/22/24 20:57 Dose: 1 each Aspirin (Aspirin 81 Mg) 81 mg PO DAILY [facility] Last Admin: 04/22/24 08:28 Dose: 81 mg Atorvastatin Calcium (Atorvastatin 10 Mg Tab) 10 mg PO HS [facility] Last Admin: 04/22/24 20:58 Dose: 10 mg Brimonidine Tartrate (Brimonidine Tartrate 0.2% Drops 5 Ml Btl) 1 drops BOTH EYES DAILY [facility] Last Admin: 04/22/24 08:29 Dose: 1 drops Donepezil HCl (Donepezil 10 Mg Tab) 10 mg PO DAILY [facility] Last Admin: 04/22/24 08:28 Dose: 10 mg Hydroxyurea (Hydroxyurea 500 Mg Cap) 500 mg PO DAILY [facility] Last Admin: 04/22/24 08:27 Dose: 500 mg Hydroxyurea (Hydroxyurea 500 Mg Cap) 500 mg PO MOTUWETHFR@2100 [facility] Last Admin: 04/22/24 20:59 Dose: 500 mg Cefepime HCl 2 gm/ Sodium (Chloride) 100 mls @ 25 mls/hr IVPB Q8H [facility] Last Admin: 04/22/24 17:28 Dose: 25 mls/hr Latanoprost (Latanoprost 0.005% Ophth Drops 2.5 Ml Btl) 1 drops BOTH EYES BID [facility] Last Admin: 04/22/24 20:58 Dose: 1 drops Melatonin (Melatonin 5 Mg Tablet) 5 mg PO HS [facility] Last Admin: 04/22/24 20:58 Dose: 5 mg Metoprolol Tartrate (Metoprolol Tartrate 25 Mg Tab) 25 mg PO BID [facility] Last Admin: 04/22/24 20:58 Dose: 25 mg Morphine Sulfate (Morphine Sulfate 2 Mg/Ml Syringe) 2 mg IVP Q4HR PRN PRN Reason: Pain/Discomfort Last Admin: 04/18/24 13:46 Dose: 2 mg Naloxone HCl (Naloxone 0.4 Mg/Ml 1 Ml Vial) 0.2 mg IV Q2M PRN PRN Reason: Opioid Reversal Naloxone HCl (Naloxone 0.4 Mg/Ml 1 Ml Vial) 0.2 mg IVP Q2M PRN PRN Reason: Opioid Reversal Ondansetron HCl (Ondansetron 4 Mg/2 Ml Vial) 4 mg IVP Q8HR PRN PRN Reason: Nausea And Vomiting Pantoprazole Sodium (Pantoprazole 40 Mg Tablet) 40 mg PO AC-BRKFST [facility] Last Admin: 04/22/24 06:22 Dose: 40 mg Spironolactone (Spironolactone 25 Mg Tab) 12.5 mg PO DAILY [facility] Last Admin: 04/22/24 08:28 Dose: 12.5 mg Social history: Patient smoked for 12 years stopped smoking age of 29. Smoked half a pack a day. 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 Conjunctiva normal HEENT: External appearance of nose and ears normal, oral cavity grossly normal. Decreased hearing NECK: JVD possibly raised; masses not palpable. HEART: First and second heart sounds are normal; edema present a. LUNGS: Respiratory rate normal; lungs clear. ABDOMEN: Soft, nontender, liver spleen not palpable, no masses palpable. PSYCH: Alert and oriented x3; mood and affect aditya l. MUSCULOSKELETAL:No Clubbing/cyanosis;muscles-grossly intact. OA EXTREMITIES: shiny skin of the right foot. Swelling of the right foot. Dressing over right foot s INVESTIGATIONS, reviewed in the clinical context: April 22: White count 12.2 hemoglobin 12 platelets 348 potassium 4.9 creatinine 0.82 Wound culture: Pseudomonas aeruginosa April 17: White count 13.7 hemoglobin 12.6 potassium 4.8 creatinine 0.88 April 16: Creatinine 0.91 April 15, 2024: White count 14.2 hemoglobin 13.7 platelets 504 sodium 137 potassium 4.7 BUN 31 creatinine 1.14 lactic acid 2.1 CRP 3.1 EKG tracing personally reviewed by me-normal sinus rhythm. Nonspecific ST-T wave changes. Previous investigations 2D echocardiogram: [October 2023] EF 40%. Severely increased left ventricular systolic volume. Mild to moderate MR. Assessment plan: -Right foot second toe gangrene changes, with cellulitis. from PAD: IV cefepime. Patient underwent angiogram by Dr. Bell. Right foot second toe amputation by Dr. Oscar, April 18 -Severe peripheral arterial disease This is being followed by Dr. Oscar. He will discuss with patient's daughter about probable further amputation down the road. Increase Lipitor to 40 mg nightly Resume dose of Xarelto for PAD -Mild protein calorie malnutrition Albumin 3.1. -Chronic congestive heart failure exacerbation, from systolic dysfunction EF 40% Aldactone 12.5 mg a day. Fluid restriction to 1500 cc a day. -Mild to moderate mitral regurgitation -Essential hypertension Lopressor 25 mg twice daily -Cognitive impairment. Aricept -Primary osteoarthritis Tylenol as needed -Chronic gait dysfunction, uses a scooter at baseline -Full code Discussed with patient and Dr. Oscar Past Medical History Past Medical History: Asthma, CVA/TIA, Hyperlipidemia, Hypertension, Myocardial Infarction (MD) Additional Past Medical History / Comment(s): TIA-2012 R hand residual weakness Last Myocardial Infarction Date:: 2013 History of Any Multi-Drug Resistant Organisms: None Reported Past Surgical History: Cholecystectomy, Hernia Repair, Tonsillectomy Additional Past Surgical History / Comment(s): [facility] [employer] Past Anesthesia/Blood Transfusion Reactions: No Reported Reaction Past Psychological History: No Psychological Hx Reported Smoking Status: Never smoker Past Alcohol Use History: Rare Past Drug Use History: None Reported
[2024-04-22] MEDS: RIVAROXABAN 2.5 MG TABLET PO SCH (23:59)
--- NOTE | 2024-04-23 12:56 | P.PN ---
Subjective Progress Note Date: 04/22/24 Principal diagnosis: Reason for follow-up is right second toe gangrene Patient is a 84-year-old male with a past medical history significant for hypertension hyperlipidemia [place] CVA TIA asthma presenting to the hospital for evaluation of right second toe wound, patient be diagnosed with right second toe gangrene prompted this consultation.Patient is status post right second toe amputation completed on 04/18/2024. On today's evaluation that is 04/22/2024, Patient is afebrile this morning patient denies having any chest pain shortness of breath or cough, the patient is breathing comfortably and currently on room air, patient denies any abdominal pain no diarrhea no nausea no vomiting, denies any worsening pain to the right lower extremity Patient white count is 12.2, creatinine 0.82 Objective - Vital Signs Vital signs: Vital Signs Temp 98.4 F 04/22/24 11:14 Pulse 81 04/22/24 11:14 Resp 16 04/22/24 11:14 BP 137/69 04/22/24 11:14 Pulse Ox 97 04/22/24 11:14 FiO2 Intake & Output 04/21/24 04/22/24 04/22/24 18:59 06:59 18:59 Intake Total 896 20 260 Output Total 250 400 Balance 646 -380 260 Weight 63.5 kg 64 kg Intake: IV 20 20 20 Invasive Line 5 20 20 20 Oral 876 240 Output: Urine 250 400 Other: Voiding Method Toilet Toilet Urinal Urinal - Exam GENERAL DESCRIPTION: An elderly male lying in bed in no distress RESPIRATORY SYSTEM: Unlabored breathing , decreased breath sounds at bases HEART: S1 S2 regular rate and rhythm , ABDOMEN: Soft , no tenderness EXTREMITIES: Right foot is currently dressed no drainage - Labs CBC & Chem 7: 04/22/24 07:58 04/22/24 07:58 Labs: Abnormal Lab Results - Last 24 Hours (Table) 04/22/24 04/22/24 Range/Units 07:58 07:58 WBC 12.2 H (3.8-10.6) k/uL RBC 3.08 L (4.30-5.90) m/uL Hgb 12.0 L (13.0-17.5) gm/dL Hct 38.6 L (39.0-53.0) % MCV 125.1 H (80.0-100.0) fL MCH 39.0 H (25.0-35.0) pg RDW 19.0 H (11.5-15.5) % Neutrophils # 10.1 H (1.3-7.7) k/uL Macrocytosis Marked A Sodium 135 L (137-145) mmol/L BUN 29 H (9-20) mg/dL Glucose 127 H (74-99) mg/dL Microbiology - Last 24 Hours (Table) 04/18/24 12:41 Gram Stain - Final Toe - Right Second Tissue Culture - Final Pseudomonas aeruginosa Assessment and Plan (1) Cellulitis of right foot Current Visit: Yes Status: Acute Code(s): L03.115 - CELLULITIS OF RIGHT LOWER LIMB SNOMED Code(s): 47825912116609227 (2) Gangrene of toe of right foot Current Visit: Yes Status: Acute Code(s): I96 - GANGRENE, NOT ELSEWHERE CLASSIFIED SNOMED Code(s): 04333588701863931 (3) Leukocytosis Current Visit: No Status: Chronic Priority: Medium Code(s): D72.829 - ELEVATED WHITE BLOOD CELL COUNT, UNSPECIFIED SNOMED Code(s): 389978640 Plan: 1patient presented to hospital with blackish discoloration to his right second toe and this patient apparently has been dealing with a nonhealing wound to the area for couple weeks and seem to have failed outpatient oral antibiotic therapy concerning for gangrene did have elevated white count possible component of secondary bacterial infection not entirely excluded and need to cover for gram- positive skin mark as well as gram-negative pathogen 2patient has been evaluated by vascular surgery vascular did have lower extremity angiogram concerning for diffuse disease, patient is currently being monitored by vascular surgery and cardiology 3local cultures did grew Pseudomonas, blood culture has been negative, OR all culture also grew Pseudomonas aeruginosa anaerobe culture negative 4patient did have significant ischemic changes to the right foot any further intervention from vascular surgery this has been discussed with Dr. Oscar awaiting discussion with the family regarding further intervention 5patient is currently covered cefepime to continue Dictation was produced using [employer] software. please excuse any grammatical, word or spelling errors. Time with Patient: Less than 30
--- NOTE | 2024-04-23 12:57 | P.PN ---
Subjective Progress Note Date: 04/23/24 Principal diagnosis: Reason for follow-up is right second toe gangrene Patient is a 84-year-old male with a past medical history significant for hypertension hyperlipidemia [place] CVA TIA asthma presenting to the hospital for evaluation of right second toe wound, patient be diagnosed with right second toe gangrene prompted this consultation.Patient is status post right second toe amputation completed on 04/18/2024. On today's evaluation that is 04/23/2024,the patient denies any fever or any chills, patient is breathing comfortably on room air, the patient denies chest pain shortness of breath and no significant cough, patient denies abdominal pain, no nausea vomiting or diarrhea., The patient pain to the right leg is currently controlled. No labs drawn today, local culture with Pseudomonas blood cultures pending anaerobe culture negative Objective - Vital Signs Vital signs: Vital Signs Temp 96.9 F L 04/23/24 09:07 Pulse 63 04/23/24 12:00 Resp 18 04/23/24 12:00 BP 121/61 04/23/24 12:00 Pulse Ox 98 04/23/24 12:00 FiO2 Intake & Output 04/22/24 04/23/24 04/23/24 18:59 06:59 18:59 Intake Total 620 560 350 Output Total 250 Balance 620 560 100 Weight 63 kg Intake: IV 20 20 Invasive Line 5 20 20 Oral 600 540 350 Output: Urine 250 Other: Voiding Method Toilet Toilet Urinal Urinal - Exam GENERAL DESCRIPTION: An elderly male lying in bed in no distress RESPIRATORY SYSTEM: Unlabored breathing , decreased breath sounds at bases HEART: S1 S2 regular rate and rhythm , ABDOMEN: Soft , no tenderness EXTREMITIES: Right foot is currently dressed no drainage - Labs CBC & Chem 7: 04/22/24 07:58 04/22/24 07:58 Assessment and Plan (1) Cellulitis of right foot Current Visit: Yes Status: Acute Code(s): L03.115 - CELLULITIS OF RIGHT LOWER LIMB SNOMED Code(s): 95615452590695587 (2) Gangrene of toe of right foot Current Visit: Yes Status: Acute Code(s): I96 - GANGRENE, NOT ELSEWHERE CLASSIFIED SNOMED Code(s): 20410153258048082 (3) Leukocytosis Current Visit: No Status: Chronic Priority: Medium Code(s): D72.829 - ELEVATED WHITE BLOOD CELL COUNT, UNSPECIFIED SNOMED Code(s): 779648294 Plan: 1patient presented to hospital with blackish discoloration to his right second toe and this patient apparently has been dealing with a nonhealing wound to the area for couple weeks and seem to have failed outpatient oral antibiotic therapy concerning for gangrene did have elevated white count possible component of secondary bacterial infection not entirely excluded and need to cover for gram- positive skin mark as well as gram-negative pathogen 2patient has been evaluated by vascular surgery vascular did have lower extremity angiogram concerning for diffuse disease, patient is currently being monitored by vascular surgery and cardiology 3local cultures did grew Pseudomonas, blood culture has been negative, OR all culture also grew Pseudomonas aeruginosa anaerobe culture negative 4patient did have significant ischemic changes to the right foot, awaiting further intervention from vascular surgery this has been discussed with Dr. Oscar and is currently awaiting discussion with the family regarding further intervention 5patient to continue with cefepime along with local wound care with Aquacel silver dressing and monitor clinical course closely Dictation was produced using [employer] dictation software. please excuse any grammatical, word or spelling errors. Time with Patient: Less than 30
--- NOTE | 2024-04-23 16:49 | P.PN ---
Progress Note - Text Progress Note Date: 04/23/24 Chief Complaint: Right foot second toe gangrene very pleasant 84-year-old patient who follows with visiting physicians Henok Harvey. Chronic stable medical conditions include CAD with a previous [place], hypertension, hyperlipidemia asthma. is ex-smoker. Lives by himself. For about 4 weeks patient has been noticing increasing discomfort pain in the right foot second toe. Progressively getting worse. Also right foot is a bit swollen. Increased pain and tenderness. 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 Patient was due to see Dr. Oscar from vascular in couple of days. Because symptoms got worse decided to come to the ER. No fever no chills. Patient is found of gangrene changes in the right foot second toe. Dr. Oscar from vascular was consulted. I spoke to patient's daughter on the phone at the patient's bedside. Normally uses a scooter to get about including inside the house. April 16: Saw the patient this morning. Sitting at the edge of the bed. On IV cefepime and vancomycin.Results of lower extremity CTA noted. Patient will be undergoing angiogram by Dr. Bell tomorrow. N.p.o. after midnight. Some pain at the affected foot. April 17: Patient continues with IV cefepime IV vancomycin. Family at the bedside. Seen this morning. Due for angiogram by Dr. Bell this afternoon. Further course of action depending on the same. Wound culture growing Pseudomonas. Blood cultures negative till now 04/18. Patient seen and examined. Patient went for surgical intervention today. Any chest pain or shortness of breath 04/19. Patient seen and examined. Sitting upright in the chair. Denies any c hest pain or shortness of breath. States he feels better 04/20/2024 Patient evaluated in follow up today on the cardiac unit. Postoperative day #4 right 2nd toe ray amputation. Cultures growing pseudomonas. Vascular following. Recommending aquacel Q48 hours to the wound. CT angio with runoff reveals severe peripheral arterial disease and bilateral popliteal occlusions. Patient remains on IV cefepime. Surgical cultures are pending. White blood cell count 11.9. Hgb 12.9. Sodium 130. Patient is on room air. 04/21/2024 Patient with no acute complaints today. He was cleared to be up ambulating with heel touch only of the right leg. He is postoperative day #5 right 2nd toe ray amputation. Pending final surgical cultures. Local wound care with aquacel. Sodium better at 135 after discontinuation of IV fluids. April 22, 2024: Sitting up in a chair. Pain controlled. Had a good breakfast today. I spoke to Dr. Oscar today. Patient had poor circulation. He may need amputation proximally at some point. He will talk to patient's daughter. Meantime antibiotics are to continue and plan for discharge. April 23: Laying in bed. Comfortable. Dr. Oscar will speak to patient keshav gonzalez today. Patient can go to [facility] with IV antibiotics. Will need possible further amputation down the road. He has collaterals with poor circulation in his lower limb. Pain controlled. Spoke to caseworker intake for DC planning Active Medications Acetaminophen (Acetaminophen Tab 325 Mg Tab) 650 mg PO Q6HR PRN PRN Reason: Mild Pain or Fever > 100.5 Hydrocodone Bitart/Acetaminophen (Hydrocodone/Apap 5-325mg 1 Each Tab) 1 each PO Q4HR PRN PRN Reason: Moderate Pain (Scale 4 to 6) Last Admin: 04/23/24 06:42 Dose: 1 each Aspirin (Aspirin 81 Mg) 81 mg PO DAILY [facility] Last Admin: 04/23/24 08:59 Dose: 81 mg Atorvastatin Calcium (Atorvastatin 40 Mg Tab) [address] [facility] Brimonidine Tartrate (Brimonidine Tartrate 0.2% Drops 5 Ml Btl) 1 drops BOTH EYES DAILY [facility] Last Admin: 04/23/24 09:00 Dose: 1 drops Donepezil HCl (Donepezil 10 Mg Tab) 10 mg PO DAILY [facility] Last Admin: 04/23/24 08:58 Dose: 10 mg Hydroxyurea (Hydroxyurea 500 Mg Cap) 500 mg PO DAILY [facility] Last Admin: 04/23/24 08:59 Dose: 500 mg Hydroxyurea (Hydroxyurea 500 Mg Cap) 500 mg PO MOTUWETHFR@2100 [facility] Last Admin: 04/22/24 20:59 Dose: 500 mg Cefepime HCl 2 gm/ Sodium (Chloride) 100 mls @ 25 mls/hr IVPB Q8H [facility] Last Admin: 04/23/24 14:14 Dose: 25 mls/hr Latanoprost (Latanoprost 0.005% Ophth Drops 2.5 Ml Btl) 1 drops BOTH EYES BID [facility] Last Admin: 04/23/24 09:00 Dose: 1 drops Melatonin (Melatonin 5 Mg Tablet) 5 mg PO HS [facility] Last Admin: 04/22/24 20:58 Dose: 5 mg Metoprolol Tartrate (Metoprolol Tartrate 25 Mg Tab) 25 mg PO BID [facility] Last Admin: 04/23/24 08:59 Dose: 25 mg Morphine Sulfate (Morphine Sulfate 2 Mg/Ml Syringe) 2 mg IVP Q4HR PRN PRN Reason: Pain/Discomfort Last Admin: 04/18/24 13:46 Dose: 2 mg Naloxone HCl (Naloxone 0.4 Mg/Ml 1 Ml Vial) 0.2 mg IV Q2M PRN PRN Reason: Opioid Reversal Naloxone HCl (Naloxone 0.4 Mg/Ml 1 Ml Vial) 0.2 mg IVP Q2M PRN PRN Reason: Opioid Reversal Ondansetron HCl (Ondansetron 4 Mg/2 Ml Vial) 4 mg IVP Q8HR PRN PRN Reason: Nausea And Vomiting Pantoprazole Sodium (Pantoprazole 40 Mg Tablet) 40 mg PO AC-BRKFST [facility] Last Admin: 04/23/24 06:43 Dose: 40 mg Rivaroxaban (Rivaroxaban 2.5 Mg Tablet) 2.5 mg PO BID [facility]; Protocol Last Admin: 04/23/24 09:00 Dose: 2.5 mg Spironolactone (Spironolactone 25 Mg Tab) 12.5 mg PO DAILY [facility] Last Admin: 04/23/24 08:59 Dose: 12.5 mg Social history: Patient smoked for 12 years stopped smoking age of 29. Smoked half a pack a day. 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 Owns a Twist. Lives alone Physical examination: VITAL SIGNS: 96.9, 63, 18, 121/61, 98% room air GENERAL: Laying in bed, comfortable EYES: Pupils equal. Conjunctiva normal HEENT: External appearance of nose and ears normal, oral cavity grossly normal. Decreased hearing NECK: JVD possibly raised; masses not palpable. HEART: First and second heart sounds are normal; edema present a. LUNGS: Respiratory rate normal; lungs clear. ABDOMEN: Soft, nontender, liver spleen not palpable, no masses palpable. PSYCH: Alert and oriented x3; mood and affect aditya l. MUSCULOSKELETAL:No Clubbing/cyanosis;muscles-grossly intact. OA EXTREMITIES: shiny skin of the right foot. Swelling of the right foot. Dressing over right foot INVESTIGATIONS, reviewed in the clinical context: April 22: White count 12.2 hemoglobin 12 platelets 348 potassium 4.9 creatinine 0.82 Wound culture: Pseudomonas aeruginosa April 17: White count 13.7 hemoglobin 12.6 potassium 4.8 creatinine 0.88 April 16: Creatinine 0.91 April 15, 2024: White count 14.2 hemoglobin 13.7 platelets 504 sodium 137 po tassium 4.7 BUN 31 creatinine 1.14 lactic acid 2.1 CRP 3.1 EKG tracing personally reviewed by me-normal sinus rhythm. Nonspecific ST-T wave changes. Previous investigations 2D echocardiogram: [October 2023] EF 40%. Severely increased left ventricular systolic volume. Mild to moderate MR. Assessment plan: -Right foot second toe gangrene changes, with cellulitis. from PAD: Patient has poor circulation to both lower extremity. Will probably need amputation down the road. IV cefepime. Patient underwent angiogram by Dr. Bell. Right foot second toe amputation by Dr. Oscar, April 18 Plan to DC with IV antibiotics and follow-up outpatient/wound center -Severe peripheral arterial disease followed by Dr. Oscar. He will discuss with patient's daughter today t probable further amputation down the road. Lipitor to 40 mg nightly dose of Xarelto for PAD -Mild protein calorie malnutrition Albumin 3.1. -Chronic congestive heart failure exacerbation, from systolic dysfunction EF 40% Aldactone 12.5 mg a day. Fluid restriction to 1500 cc a day. -Mild to moderate mitral regurgitation -Essential hypertension Lopressor 25 mg twice daily -Cognitive impairment. Aricept -Primary osteoarthritis Tylenol as needed -Chronic gait dysfunction, uses a scooter at baseline -Full code Discussed with the patient and Dr. Oscar over the phone. Plan for discharge to [facility] tomorrow. Past Medical History Past Medical History: Asthma, CVA/TIA, Hyperlipidemia, Hypertension, Myocardial Infarction ([place]) Additional Past Medical History / Comment(s): TIA-2012 R hand residual weakness Last Myocardial Infarction Date:: 2013 History of Any Multi-Drug Resistant Organisms: None Reported Past Surgical History: Cholecystectomy, Hernia Repair, Tonsillectomy Additional Past Surgical History / Comment(s): [employer] Past Anesthesia/Blood Transfusion Reactions: No Reported Reaction Past Psychological History: No Psychological Hx Reported Smoking Status: Never smoker Past Alcohol Use History: Rare Past Drug Use History: None Reported
--- NOTE | 2024-04-23 19:52 | PN ---
PROGRESS NOTE The patient had a left foot 2nd toe ray amputation. The patient had angiogram done of right common iliac artery. It is occluded and distally short segment of the iliac artery is patent, distally external iliac, internal iliac, common femoral and profunda is occluded with multiple collaterals. Superficial femoral artery is occluded. The profunda is reconstituted with multiple collaterals. The patient has some blister formation and ecchymosis on the dorsal aspect of the foot. We changed the dressing, placed Aquacel Silver. The patient is on IV antibiotic under care of Infectious Disease. The [facility]. I have discussed with the family options of the right leg. The patient will be needing a major amputation. We are awaiting for demarcation. The patient will follow up with me. Prognosis is guarded. MMODL / IJN: [id number] /
[2024-04-23] MEDS: ATORVASTATIN 40 MG TAB PO SCH (20:21)
[2024-04-24 06:00] LABS: Glucose,Whole Blood 108 mg/dL (70-110)
[2024-04-24 07:35] LABS: African American GFR (CKD) >90 (>60 ml/min/1.73 sqM); Anion Gap 11 mmol/L; Blood Urea Nitrogen 32 mg/dL (9-20); Calcium 9.3 mg/dL (8.4-10.2); Carbon Dioxide 21 mmol/L (22-30); Chloride 105 mmol/L (98-107); Glucose 93 mg/dL (74-99); Non-African American GFR(CKD) 80 (>60 ml/min/1.73 sqM); Potassium 5.3 mmol/L (3.5-5.1); Sodium 137 mmol/L (137-145)
[2024-04-24 11:37] VITALS: RESP 17
[2024-04-24 13:11] LABS: Anisocytosis Slight; Basophils # (A) 0.1 k/uL (0-0.2); Basophils % (A) 1 %; Eosinophils # (A) 0.3 k/uL (0-0.7); Eosinophils % (A) 2 %; HGB 12.4 gm/dL (13.0-17.5); Hypochromasia Marked; Lymphocytes # (A) 1.1 k/uL (1.0-4.8); Lymphocytes % (A) 8 %; MCH 39.3 pg (25.0-35.0); MCHC 31.7 g/dL (31.0-37.0); MCV 123.8 fL (80.0-100.0); Macrocytosis Marked; Mean Platelet Volume 10.6; Monocytes # (A) 0.5 k/uL (0-1.0); Monocytes % (A) 4 %; Neutrophils # (A) 11.2 k/uL (1.3-7.7); Neutrophils % (A) 83 %; Platelet Count 307 k/uL (150-450); RBC 3.15 m/uL (4.30-5.90); RDW 18.9 % (11.5-15.5); WBC 13.4 k/uL (3.8-10.6)
[2024-04-24 14:43] VITALS: BP 112/58; PULSE 68; TEMP 97.8
--- NOTE | 2024-04-24 14:44 | P.DS ---
Providers Date of admission: 04/15/24 14:43 Expected date of discharge: 04/24/24 Attending physician: Cesario Mabry Consults: 04/15/24 15:09 Consult Physician Urgent Consulting Provider: Cesar Oscar Consult Reason/Comments: Gangrene of right second toe Do you want consulting provider notified?: Yes 04/15/24 15:18 Consult Physician Urgent Consulting Provider: Ayush Cabrera Consult Reason/Comments: Right foot cellulitis, gangrene 2nd toe Do you want consulting provider notified?: Yes Primary care physician: Juliocesar Joyner MD Hospital Course: Chief Complaint: Right foot second toe gangrene very pleasant 84-year-old patient who follows with visiting physicians Henok Harvey. Chronic stable medical conditions include CAD with a previous DC, hypertension, hyperlipidemia asthma. is ex-smoker. Lives by himself. For about 4 weeks patient has been noticing increasing discomfort pain in the right foot second toe. Progressively getting worse. Also right foot is a bit swollen. Increased pain and tenderness. 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 Patient was due to see Dr. Oscar from vascular in couple of days. Because symptoms got worse decided to come to the ER. No fever no chills. Patient is found of gangrene changes in the right foot second toe. Dr. Oscar from vascular was consulted. I spoke to patient's daughter on the phone at the patient's bedside. Normally uses a scooter to get about including inside the house. April 16: Saw the patient this morning. Sitting at the edge of the bed. On IV cefepime and vancomycin.Results of lower extremity CTA noted. Patient will be undergoing angiogram by Dr. Bell tomorrow. N.p.o. after midnight. Some pain at the affected foot. April 17: Patient continues with IV cefepime IV vancomycin. Family at the bedside. Seen this morning. Due for angiogram by Dr. Bell this afternoon. Further course of action depending on the same. Wound culture growing Pseudomonas. Blood cultures negative till now 04/18. Patient seen and examined. Patient went for surgical intervention today. Any chest pain or shortness of breath 04/19. Patient seen and examined. Sitting upright in the chair. Denies any chest pain or shortness of breath. States he feels better 04/20/2024 Patient evaluated in follow up today on the cardiac unit. Postoperative day #4 right 2nd toe ray amputation. Cultures growing pseudomonas. Vascular following. Recommending aquacel Q48 hours to the wound. CT angio with runoff reveals severe peripheral arterial disease and bilateral popliteal occlusions. Patient remains on IV cefepime. Surgical cultures are pending. White blood cell count 11.9. Hgb 12.9. Sodium 130. Patient is on room air. 04/21/2024 Patient with no acute complaints today. He was cleared to be up ambulating with heel touch only of the right leg. He is postoperative day #5 right 2nd toe ray amputation. Pending final surgical cultures. Local wound care with aquacel. Sodium better at 135 after discontinuation of IV fluids. April 22, 2024: Sitting up in a chair. Pain controlled. Had a good breakfast today. I spoke to Dr. Oscar today. Patient had poor circulation. He may need amputation proximally at some point. He will talk to patient's daughter. Meantime antibiotics are to continue and plan for discharge. April 23: Laying in bed. Comfortable. Dr. Oscar will speak to patient daughter today. [facility]. Will need possible further amputation down the road. He has collaterals with poor circulation in his lower limb. Pain controlled. Spoke to disability case manager for DC planning April 24: Comfortable. Pain controlled. Spoke to the daughter at the bedside. Discussed with Dr. Morrison from [facility]. Patient will continue with 8 weeks of IV antibiotics. She will follow-up with Dr. Oscar in the wound center. Wound dressing per Dr. Oscar. Questions answered. Discussion and discharge planning more than 35 minutes Social history: Patient smoked for 12 years stopped smoking age of 29. Smoked half a pack a day. 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 Lives alone Physical examination: VITAL SIGNS: 98.2, 57, 17, 131 x 65, 97% room air GENERAL: Laying in bed, comfortable EYES: Pupils equal. Conjunctiva normal HEENT: External appearance of nose and ears normal, oral cavity grossly normal. Decreased hearing NECK: JVD possibly raised; masses not palpable. HEART: First and second heart sounds are normal; edema present a. LUNGS: Respiratory rate normal; lungs clear. ABDOMEN: Soft, nontender, liver spleen not palpable, no masses palpable. PSYCH: Alert and oriented x3; mood and affect aditya l. MUSCULOSKELETAL:No Clubbing/cyanosis;muscles-grossly intact. OA EXTREMITIES: shiny skin of the right foot. Swelling of the right foot. Dressing over right foot INVESTIGATIONS, reviewed in the clinical context: April 24: White count 13.4 hemoglobin 12.4 platelets 307 potassium 5.3 BUN 32 creatinine 0.83 April 22: White count 12.2 hemoglobin 12 platelets 348 potassium 4.9 creatinine 0.82 Wound culture: Pseudomonas aeruginosa April 17: White count 13.7 hemoglobin 12.6 potassium 4.8 creatinine 0.88 April 16: Creatinine 0.91 April 15, 2024: White count 14.2 hemoglobin 13.7 platelets 504 sodium 137 potassium 4.7 BUN 31 creatinine 1.14 lactic acid 2.1 CRP 3.1 EKG tracing personally reviewed by me-normal sinus rhythm. Nonspecific ST-T wave changes. Previous investigations 2D echocardiogram: [October 2023] EF 40%. Severely increased left ventricular systolic volume. Mild to moderate MR. Assessment plan: -Right foot second toe gangrene changes, with cellulitis. from PAD: Patient has poor circulation to both lower extremity. Will probably need amputation down the road. IV cefepime-prescribed 4 weeks for now. Further depending on clinical course. Patient underwent angiogram by Dr. Bell. Right foot second toe amputation by Dr. Oscar, April 18 Plan to DC with IV antibiotics and follow-up outpatient/wound center, with Dr. Oscar -Severe peripheral arterial disease followed by Dr. Oscar. He will discuss with patient's daughter today t probable further amputation down the road. Lipitor to 40 mg nightly Xarelto for PAD -Mild protein calorie malnutrition Albumin 3.1. Nutritional supplement -Chronic congestive heart failure exacerbation, from systolic dysfunction EF 40% Aldactone 12.5 mg a day. Fluid restriction to 1500 cc a day. -Mild to moderate mitral regurgitation -Essential hypertension Lopressor 25 mg twice daily -Mild cognitive impairment. Aricept -Primary osteoarthritis Tylenol as needed -Chronic gait dysfunction, uses a scooter at baseline -Full code [facility] [place] [facility] [place] Labs: CBC BMP weekly is on Saturday Past Medical History Past Medical History: Asthma, CVA/TIA, Hyperlipidemia, Hypertension, Myocardial Infarction (DC) Additional Past Medical History / Comment(s): TIA-2012 R hand residual weakness Last Myocardial Infarction Date:: 2013 History of Any Multi-Drug Resistant Organisms: None Reported Past Surgical History: Cholecystectomy, Hernia Repair, Tonsillectomy Additional Past Surgical History / Comment(s): SUMANTH CATARACTS Past Anesthesia/Blood Transfusion Reactions: No Reported Reaction Past Psychological History: No Psychological Hx Reported Smoking Status: Never smoker Past Alcohol Use History: Rare Past Drug Use History: None Reported Plan - Discharge Summary Discharge Rx Participant: Yes New Discharge Prescriptions: New Acetaminophen Tab [Tylenol] 650 mg PO Q6HR PRN tab PRN Reason: Mild Pain Or Fever > 100.5 Cefepime [Maxipime] 2 gm IVPB Q8H #84 each Metoprolol Tartrate [Lopressor] 25 mg PO BID tab Continue Latanoprost [Xalatan 0.005%] 1 drop BOTH EYES BID Aspirin EC [Ecotrin Low Dose] 81 mg PO DAILY Spironolactone [Aldactone] 12.5 mg PO DAILY #30 tab Rivaroxaban [Xarelto] 2.5 mg PO BID Donepezil [Aricept] 10 mg PO DAILY Rosuvastatin Calcium 5 mg PO HS Brimonidine Tartrate [Alphagan P 0.2% Ophth Soln] 1 drop BOTH EYES DAILY Pantoprazole Sodium [Protonix] 40 mg PO DAILY #30 tab Hydroxyurea [Hydrea] 500 mg PO DAILY Hydroxyurea [Hydrea] 500 mg PO MOTUWETHFR@2100 Changed oxyCODONE-APAP 5-325MG [Percocet 5-325 mg] 1 tab PO TID PRN #9 tab PRN Reason: Pain Discontinued Levofloxacin [Levaquin] 750 mg PO DIRECTED Discharge Medication List Latanoprost [Xalatan 0.005%] 1 drop BOTH EYES BID 06/25/16 [History] Aspirin EC [Ecotrin Low Dose] 81 mg PO DAILY 07/08/21 [History] Donepezil [Aricept] 10 mg PO DAILY 07/08/21 [History] Rivaroxaban [Xarelto] 2.5 mg PO BID 07/08/21 [History] Rosuvastatin Calcium 5 mg PO HS 06/29/22 [History] Brimonidine Tartrate [Alphagan P 0.2% Ophth Soln] 1 drop BOTH EYES DAILY 10/17/23 [History] Spironolactone [Aldactone] 12.5 mg PO DAILY #30 tab 03/10/24 [Rx] Pantoprazole Sodium [Protonix] 40 mg PO DAILY #30 tab 10/30/23 [Rx] Hydroxyurea [Hydrea] 500 mg PO DAILY 04/15/24 [History] Hydroxyurea [Hydrea] 500 mg PO MOTUWETHFR@2100 04/15/24 [History] Acetaminophen Tab [Tylenol] 650 mg PO Q6HR PRN tab 04/24/24 [Rx] Cefepime [Maxipime] 2 gm IVPB Q8H #84 each 04/24/24 [Rx] Metoprolol Tartrate [Lopressor] 25 mg PO BID tab 04/24/24 [Rx] oxyCODONE-APAP 5-325MG [Percocet 5-325 mg] 1 tab PO TID PRN #9 tab 04/24/24 [Rx] Follow up Appointment(s)/Referral(s): Juliocesar Joyner MD [Primary Care Provider] - 1-2 days Cesar Oscar MD [STAFF PHYSICIAN] - 1 Week (Apr 28 12:00) Ayush Cabrera MD [STAFF PHYSICIAN] - 2 Weeks [facility] Visiting Nurse, [NON-STAFF] - Activity/Diet/Wound Care/Special Instructions: wound orders per dr oscar f/u at wound care center
--- NOTE | 2024-04-24 15:40 | P.PN ---
Subjective Progress Note Date: 04/24/24 Principal diagnosis: Reason for follow-up is right second toe gangrene Patient is a 84-year-old male with a past medical history significant for hypertension hyperlipidemia NC CVA TIA asthma presenting to the hospital for evaluation of right second toe wound, patient be diagnosed with right second toe gangrene prompted this consultation.Patient is status post right second toe amputation completed on 04/18/2024. On today's evaluation that is 04/24/2024,the patient remains to be afebrile, patient is on room air not requiring supplemental oxygen and denies any shortne ss of breath no chest pain or cough.Patient denies having any nausea or vomiting, no abdominal pain and no diarrhea, denies any worsening pain to the right foot. Patient white count slightly up to 13.4 today, creatinine 0.83 right foot anaerobe culture negative OR culture with Pseudomonas sensitive to cefepime Objective - Vital Signs Vital signs: Vital Signs Temp 98.2 F 04/24/24 08:10 Pulse 57 L 04/24/24 08:10 Resp 17 04/24/24 08:10 BP 131/65 04/24/24 08:10 Pulse Ox 97 04/24/24 08:10 FiO2 Intake & Output 04/23/24 04/24/24 04/24/24 18:59 06:59 18:59 Intake Total 1000 540 240 Output Total 650 Balance 350 540 240 Intake: Oral 1000 540 240 Output: Urine 650 Other: Voiding Method Toilet Toilet Toilet Urinal Urinal Urinal - Exam GENERAL DESCRIPTION: An elderly male lying in bed in no distress RESPIRATORY SYSTEM: Unlabored breathing , decreased breath sounds at bases HEART: S1 S2 regular rate and rhythm , ABDOMEN: Soft , no tenderness EXTREMITIES: Right foot is currently dressed no drainage - Labs CBC & Chem 7: 04/24/24 12:52 04/24/24 06:33 Labs: Abnormal Lab Results - Last 24 Hours (Table) 04/24/24 Range/Units 06:33 Potassium 5.3 H (3.5-5.1) mmol/L Carbon Dioxide 21 L (22-30) mmol/L BUN 32 H (9-20) mg/dL Assessment and Plan (1) Cellulitis of right foot Current Visit: Yes Status: Acute Code(s): L03.115 - CELLULITIS OF RIGHT LOWER LIMB SNOMED Code(s): 57654233695782150 (2) Gangrene of toe of right foot Current Visit: Yes Status: Acute Code(s): I96 - GANGRENE, NOT ELSEWHERE CLASSIFIED SNOMED Code(s): 44208286903958419 (3) Leukocytosis Current Visit: No Status: Chronic Priority: Medium Code(s): D72.829 - ELEVATED WHITE BLOOD CELL COUNT, UNSPECIFIED SNOMED Code(s): 175379811 Plan: 1patient presented to hospital with blackish discoloration to his right second toe and this patient apparently has been dealing with a nonhealing wound to the area for couple weeks and seem to have failed outpatient oral antibiotic therapy concerning for gangrene did have elevated white count possible component of secondary bacterial infection not entirely excluded and need to cover for gram- positive skin mark as well as gram-negative pathogen 2patient has been evaluated by vascular surgery vascular did have lower extremity angiogram concerning for diffuse disease, patient is currently being monitored by vascular surgery and cardiology 3local cultures did grew Pseudomonas, blood culture has been negative, OR all culture also grew Pseudomonas aeruginosa anaerobe culture negative 4patient did have significant ischemic changes to the right foot, awaiting further intervention from vascular surgery this has been discussed with Dr. Oscar and is currently awaiting discussion with the family regarding further intervention, follow-up plan has been transferred to the rehab keeping in mind extensive ischemic changes as well as osteomyelitis we will recommend IV cefep omar on discharge for which PICC line has been placed this has been discussed in detail with the sister as well as the admitting physician 5patient to continue with cefepime along with local wound care with Aquacel silver dressing and monitor clinical course closely Dictation was produced using [employer] dictation software. please excuse any grammatical, word or spelling errors. Time with Patient: Less than 30
--- NOTE | 2024-05-13 23:28 | IR ---
EXAMINATION TYPE: IR angio abdominal w runoff DATE OF EXAM: 04/17/2024 7:06 PM COMPARISON: Pre Operative Images if available both CT/MRI or plain film CLINICAL INDICATION: Male, 84 years old with history of Foot ulcer, 4.2m/14.4DAP, rt brachial manual pressure.; TECHNIQUE: IR angio abdominal w runoff, multiple fluoroscopic images provided for procedure. Total fluoroscopy time: 4.2 seconds Total submitted images to PACS: [id number] DAP: 2.97 mGym2 Gycm2 uGym2 cGycm2 or equivalent. FINDINGS: IMPRESSION: 1. Report was generated for administrative purposes only. 2. Please see the operative/procedural note for further details. [facility], , 05/13/2024 11:25 PM
== END 2024-04-24 15:55 | DRG 255 ==
LOC: SUPCPDRO 12:54 → EC 12:54 → 5NMEDONC 14:43 → 3SCARD 04-16 16:01
PROVIDERS: ADMIT Hospitalist; ATTEND Hospitalist
PROC: B41D1ZZ Fluoroscopy of Aorta and Bilateral Lower Extremity Arteries using Low Osmolar Contrast (ICD-10-PCS; 2024-04-17 16:52)
PROC: 0Y6R0Z0 Detachment at Right 2nd Toe, Complete, Open Approach (ICD-10-PCS; principal; 2024-04-18 10:38)
PROC: 05HC33Z Insertion of Infusion Device into Left Basilic Vein, Percutaneous Approach (ICD-10-PCS; 2024-04-24)
DX: I70.261 Atherosclerosis of native arteries of extremities with gangrene, right leg (principal); I50.33 Acute on chronic diastolic (congestive) heart failure; E87.1 Hypo-osmolality and hyponatremia; L03.115 Cellulitis of right lower limb; E44.1 Mild protein-calorie malnutrition; Z68.1 Body mass index [BMI] 19.9 or less, adult; I69.354 Hemiplegia and hemiparesis following cerebral infarction affecting left non-dominant side; L03.031 Cellulitis of right toe; E78.5 Hyperlipidemia, unspecified; I10 Essential (primary) hypertension; I11.0 Hypertensive heart disease with heart failure; Z87.891 Personal history of nicotine dependence; Z88.5 Allergy status to narcotic agent; Z88.8 Allergy status to other drugs, medicaments and biological substances; Z90.49 Acquired absence of other specified parts of digestive tract; Z98.42 Cataract extraction status, left eye; Z98.41 Cataract extraction status, right eye; B96.5 Pseudomonas (aeruginosa) (mallei) (pseudomallei) as the cause of diseases classified elsewhere; I25.10 Atherosclerotic heart disease of native coronary artery without angina pectoris; I25.2 Old myocardial infarction; I48.91 Unspecified atrial fibrillation; M19.91 Primary osteoarthritis, unspecified site; J45.909 Unspecified asthma, uncomplicated; Z79.01 Long term (current) use of anticoagulants; Z79.82 Long term (current) use of aspirin; Z79.899 Other long term (current) drug therapy; Z89.431 Acquired absence of right foot; Z87.19 Personal history of other diseases of the digestive system
CPT/HCPCS: 36200; 36415; 36573; 71046; 75625; 75716; 80048; 80053; 82565; 83605; 85025; 85652; 86140; 87040; 87070; 87075; 87077; 87186; 87205; 93005; 96365; 99285